=== PATIENT | male | born 1965 | race Caucasian/White ===

== ENCOUNTER → 2017-04-04 | Outpatient (REF) | payer OTHER ==
[~2017-04-04] MED LIST: /PANT40TA; IVIG; PRED10TA2; SYNT125T
[2017-04-04 12:52] LABS: INR 0.97
== END ==
LOC: M LAB REF 12:19
PROVIDERS: ATTEND Internal Medicine Pulmonary Disease
DX: R91.8 Other nonspecific abnormal finding of lung field (principal)

== ENCOUNTER → 2017-04-10 | Outpatient (CLI) | payer OTHER ==
[~2017-04-10] MED LIST changes: +ISOVUE-370 76% 100ML VIAL (Q9967) As Ordered ONE; +LIDOCAINE 1% MDV 20ML VIAL As Ordered ONE
== END ==
LOC: M RADPRO 07:43
PROVIDERS: ATTEND Internal Medicine Pulmonary Disease
DX: D14.31 Benign neoplasm of right bronchus and lung (principal); Z88.2 Allergy status to sulfonamides; Z88.0 Allergy status to penicillin; Z91.010 Allergy to peanuts; Z79.899 Other long term (current) drug therapy

== ENCOUNTER → 2017-12-20 | Outpatient (CLI) | payer OTHER | LOC: M SLEEP 19:46 | DX: G47.33 Obstructive sleep apnea (adult) (pediatric) (principal) | CPT/HCPCS: 95811 ==

== ENCOUNTER → 2018-01-16 | Outpatient (REF) | payer OTHER ==
[2018-01-16 14:18] LABS: IMMUNOGLOBULIN G 716 MG/DL (681-1648)
[2018-01-16 15:19] LABS: IMMUNOGLOBULIN A < 7.8 MG/DL (70-400)
[2018-01-16 15:20] LABS: IMMUNOGLOBULIN M 25.1 MG/DL (40-230)
[2018-01-21 08:06] LABS: IGASUB2 <9.7 mg/dL (73.2-301.2); IGASUB3 <0.3 mg/dL (13.4-97.9); IgA SERUM (part of Subclasses) < 5 mg/dL (90-386)
== END ==
LOC: M LAB REF 13:36
DX: D83.9 Common variable immunodeficiency, unspecified (principal); D80.2 Selective deficiency of immunoglobulin A [IgA]

== ENCOUNTER → 2018-08-15 | Outpatient (CLI) | payer OTHER ==
[~2018-08-15] MED LIST changes: -/PANT40TA; +EMLA CREAM 5GM (LIDOCAINE/PRILOCAINE) As Ordered; +ISOVUE-370 76% 100ML VIAL (Q9967) As Ordered; -ISOVUE-370 76% 100ML VIAL (Q9967) As Ordered ONE; -IVIG; -LIDOCAINE 1% MDV 20ML VIAL As Ordered ONE; -PRED10TA2; -SYNT125T
== END ==
LOC: M RAD 08:25
DX: D64.9 Anemia, unspecified (principal); R53.83 Other fatigue; R16.1 Splenomegaly, not elsewhere classified; R59.1 Generalized enlarged lymph nodes
CPT/HCPCS: Q9967

== ENCOUNTER → 2018-10-23 | Outpatient (REF) | payer OTHER ==
[~2018-10-23] MED LIST changes: +/PANT40TA; -EMLA CREAM 5GM (LIDOCAINE/PRILOCAINE) As Ordered; +FERR325T3 PO; -ISOVUE-370 76% 100ML VIAL (Q9967) As Ordered; +IVIG; +LEVO125T41 PO; +PANT40TA3 PO; +PRED10TA2; +PRED5PAK PO; +SYNT125T
[2018-10-23 11:24] LABS: ALBUMIN 3.3 GM/DL (3.2-5.2); ALT/SGPT 22 U/L (12-78); BILIRUBIN,TOTAL 0.7 MG/DL (0.2-1.0); BLOOD UREA NITROGEN 15 MG/DL (7-18); CALCIUM LEVEL 7.8 MG/DL (8.5-10.1); CARBON DIOXIDE LEVEL 27 MEQ/L (21-32); CHLORIDE LEVEL 105 MEQ/L (98-107); CREATININE FOR GFR 0.66 MG/DL (0.70-1.30); FREE T3 2.4 PG/ML (2.2-4.0); FREE T4 1.27 NG/DL (0.76-1.46); GLOMERULAR FILTRATION RATE > 60.0 (>56); GLUCOSE, FASTING 79 MG/DL (70-100); POTASSIUM SERUM 3.8 MEQ/L (3.5-5.1); SODIUM LEVEL 142 MEQ/L (136-145); TOTAL PROTEIN 6.2 GM/DL (6.4-8.2)
== END ==
LOC: M LABDRAW1 09:10
PROVIDERS: ATTEND Family Medicine
DX: E03.9 Hypothyroidism, unspecified (principal); R60.9 Edema, unspecified

== ENCOUNTER → 2018-12-04 | Outpatient (REF) | payer OTHER ==
[2018-12-04 11:21] LABS: ALBUMIN 3.5 GM/DL (3.2-5.2); ALT/SGPT 20 U/L (12-78); BILIRUBIN,TOTAL 0.6 MG/DL (0.2-1.0); BLOOD UREA NITROGEN 10 MG/DL (7-18); CALCIUM LEVEL 7.6 MG/DL (8.5-10.1); CARBON DIOXIDE LEVEL 25 MEQ/L (21-32); CHLORIDE LEVEL 107 MEQ/L (98-107); CREATININE FOR GFR 0.79 MG/DL (0.70-1.30); GLOMERULAR FILTRATION RATE > 60.0 (>56); GLUCOSE, FASTING 81 MG/DL (70-100); POTASSIUM SERUM 3.7 MEQ/L (3.5-5.1); SODIUM LEVEL 143 MEQ/L (136-145); TOTAL PROTEIN 6.2 GM/DL (6.4-8.2)
== END ==
LOC: M LAB REF 10:56
PROVIDERS: ATTEND Family Medicine
DX: Z79.899 Other long term (current) drug therapy (principal)

== ENCOUNTER → 2019-01-21 | Outpatient (REF) | payer OTHER ==
[~2019-01-21] MED LIST changes: -/PANT40TA; +PROT1TAB2
== END ==
LOC: M LAB REF 13:06
PROVIDERS: ATTEND Otolaryngology
DX: R89.6 Abnormal cytological findings in specimens from other organs, systems and tissues (principal)

== ENCOUNTER → 2019-01-29 | Outpatient (CLI) | payer OTHER ==
--- NOTE | 2019-01-29 09:40 | REP ---
Soft tissue CT neck without contrast: History: Localized enlarged lymph nodes. Comparison study: August 15, 2018. CT findings: There is moderate mucosal thickening persisting in the left maxillary sinus. The right maxillary sinus is improved. No bony destructive lesion is appreciated. There are multiple severely eroded carious teeth in the mandible and maxilla bilaterally. The lung apices are unremarkable. There is a 5 mm thick band of tissue again noted connecting the posterior aspect of the soft palate with the retropharyngeal soft tissues. This is apparently a developmental anomaly. It is unchanged. No other airway lesion is appreciated. Parotid and submandibular glands are normal and symmetric. The thyroid gland is not visible and there are surgical clips in the suprasternal notch consistent with thyroidectomy. There is evidence of aberrant right subclavian artery at the bottom edge of the imaging field of view. This is unchanged. A right internal carotid artery is tortuous and courses nearly to the midline behind the hypopharynx. There is mild shoddy bilateral cervical lymphadenopathy. On today's CT study the largest lymph node is in the left posterior cervical chain measuring 15 mm in short axis dimension. This note is a little larger but other adjacent lymph nodes are smaller when compared to the prior study. There is an anterior cervical lymph node on the left measuring 10 mm in short axis dimension which appears unchanged. A right anterior jugular lymph node previously measured at 16 mm has become more fat replaced and smaller. No mass or cyst is seen. Impression: 1. Shoddy cervical lymphadenopathy overall unchanged one or two lymph nodes are larger and several are smaller. 2. Poor dentition multiple advanced carious teeth. 3. 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 4. Aberrant right subclavian artery. Tortuous right internal carotid artery in a retropharyngeal position. Electronically Signed by Sanjiv Galvin MD 01/29/2019 06:32 P
== END ==
LOC: M RAD 07:54
PROVIDERS: ATTEND Otolaryngology
DX: R59.0 Localized enlarged lymph nodes (principal); K02.9 Dental caries, unspecified; Q38.5 Congenital malformations of palate, not elsewhere classified; R93.89 Abnormal findings on diagnostic imaging of other specified body structures

== ENCOUNTER 2019-02-26 06:55 | Outpatient (CLI) | payer OTHER ==
[~2019-02-26] VITALS: Ht 188 cm; Wt 125.0 kg
[2019-02-26] VITALS (7 sets, daily range): BP systolic 133–151; BP diastolic 62–97
[2019-02-26] MEDS ORDERED: IMMUNE GLOBULIN 10% 40 GM in APPROPRIATE DILUENT 1 EA IV ONE (07:30)
[2019-02-26] MEDS ORDERED: ACETAMINOPHEN TAB 650MG DOSE (2X325MG) PO ONE (07:45)
[2019-02-26] MEDS ORDERED: diphenhydrAMINE 50 MG CAP PO ONE (07:45)
[2019-02-26] MEDS ORDERED: SODIUM CHLORIDE 0.9% INJ 10 ML SYR IV SCH (09:00)
== END 2019-02-26 11:30 | disposition home or self-care (01) ==
LOC: M INFU 06:55
PROVIDERS: ATTEND Internal Medicine Hematology & Oncology
DX: D83.9 Common variable immunodeficiency, unspecified (principal); Z88.0 Allergy status to penicillin; Z88.2 Allergy status to sulfonamides
CPT/HCPCS: 96365; 96366; J1459

== ENCOUNTER 2019-03-20 06:56 | Outpatient (CLI) | payer OTHER ==
[2019-03-20 07:00] VITALS: BP 143/74
[2019-03-20] MEDS ORDERED: diphenhydrAMINE 50 MG CAP PO ONE (08:00)
[2019-03-20] MEDS ORDERED: ACETAMINOPHEN TAB 650MG DOSE (2X325MG) PO ONE (08:00)
[2019-03-20 08:30] VITALS: BP 141/67
[2019-03-20] MEDS ORDERED: IMMUNE GLOBULIN 10% 40 GM in APPROPRIATE DILUENT 1 EA IV ONE (08:30)
[2019-03-20 09:00] VITALS: BP 135/66
[2019-03-20] MEDS ORDERED: SODIUM CHLORIDE 0.9% INJ 10 ML SYR IV SCH (09:00)
[2019-03-20 09:30] VITALS: BP 142/65
[2019-03-20 10:00] VITALS: BP 138/63
[2019-03-20 11:04] VITALS: BP 141/69
== END 2019-03-20 11:05 | disposition home or self-care (01) ==
LOC: M INFU 06:56
PROVIDERS: ATTEND Internal Medicine Hematology & Oncology
DX: D83.9 Common variable immunodeficiency, unspecified (principal); Z88.0 Allergy status to penicillin; Z88.2 Allergy status to sulfonamides
CPT/HCPCS: 96365; 96366; J1459

== ENCOUNTER → 2019-03-26 | Outpatient (CLI) | payer OTHER ==
[~2019-03-26] MED LIST changes: +LIDOCAINE 1% MDV 20ML VIAL As Ordered ONE
--- NOTE | 2019-03-27 09:04 | REP ---
Ultrasound-guided cervical lymph node FNA This procedure was performed by KASEY Butterfield, under the personal supervision of Dr. Lau. The patient has a history of enlarged cervical lymph nodes on a CT scan dated 01/29/2019 and 08/15/2018. The risks and the benefits of the procedure were explained to the patient and informed consent was obtained both verbally and written. Directly prior to the start of the procedure, a formal time out was completed in the procedure room. The cervical lymph node that the patient palpated was localized using ultrasound guidance. The skin was prepped and draped in a sterile fashion. 1% lidocaine was used as a local anesthetic. Using ultrasound guidance 8 fine-needle aspirations were obtained using 25 gauge needles of the lymph node. The patient tolerated the procedure well and there were no immediate complications. After the appropriate amount of monitored convalescence the patient was discharged from the department. Reviewed by KASEY Butterfield 03/26/2019 03:13 P Electronically Signed by Tony Lau MD 03/27/2019 08:55 A
== END ==
LOC: M RADPRO 11:16
PROVIDERS: ATTEND Otolaryngology
DX: R59.0 Localized enlarged lymph nodes (principal)

== ENCOUNTER 2019-04-10 06:48 | Outpatient (CLI) | payer OTHER ==
[~2019-04-10] VITALS: Ht 182.9 cm; Wt 125.1 kg
[~2019-04-10 06:48] MED LIST changes: -LIDOCAINE 1% MDV 20ML VIAL As Ordered ONE
[2019-04-10 07:00] VITALS: BP 144/75
[2019-04-10] MEDS ORDERED: IMMUNE GLOBULIN 10% 40 GM in APPROPRIATE DILUENT 1 EA IV ONE (07:15)
[2019-04-10] MEDS ORDERED: ACETAMINOPHEN TAB 650MG DOSE (2X325MG) PO ONE (07:15)
[2019-04-10] MEDS ORDERED: diphenhydrAMINE 50 MG CAP PO ONE (07:15)
[2019-04-10 07:45] VITALS: BP 166/76
[2019-04-10 08:15] VITALS: BP_SYST 148; BP_SYST 166; BP_DIAS 73; BP_DIAS 76
[2019-04-10 08:45] VITALS: BP 168/76
[2019-04-10] MEDS ORDERED: SODIUM CHLORIDE 0.9% INJ 10 ML SYR IV SCH (09:00)
[2019-04-10 09:40] VITALS: BP 142/76
== END 2019-04-10 09:50 | disposition home or self-care (01) ==
LOC: M INFU 06:48
PROVIDERS: ATTEND Internal Medicine Hematology & Oncology
DX: D83.9 Common variable immunodeficiency, unspecified (principal); Z88.0 Allergy status to penicillin; Z88.2 Allergy status to sulfonamides
CPT/HCPCS: 96365; 96366; J1459

== ENCOUNTER 2019-05-01 07:35 | Outpatient (CLI) | payer OTHER ==
[~2019-05-01] VITALS: Ht 182.9 cm; Wt 125.1 kg
[2019-05-01 07:40] VITALS: BP 155/72
[2019-05-01] MEDS ORDERED: IMMUNE GLOBULIN 10% 20GM 200ML 40 GM in IV 1 EA IV ONE (08:00)
[2019-05-01 08:30] VITALS: BP 147/89
[2019-05-01 09:00] VITALS: BP 145/79
[2019-05-01] MEDS ORDERED: SODIUM CHLORIDE 0.9% INJ 10 ML SYR IV SCH (09:00)
[2019-05-01 10:00] VITALS: BP 149/80
[2019-05-01 10:30] VITALS: BP 148/82
== END 2019-05-01 10:30 | disposition home or self-care (01) ==
LOC: M INFU 07:35
PROVIDERS: ATTEND Internal Medicine Hematology & Oncology
DX: D83.9 Common variable immunodeficiency, unspecified (principal); Z88.2 Allergy status to sulfonamides; Z88.0 Allergy status to penicillin
CPT/HCPCS: 96365; J1569

== ENCOUNTER 2019-05-22 07:21 | Outpatient (CLI) | payer OTHER ==
[2019-05-22] VITALS (7 sets, daily range): BP systolic 139–151; BP diastolic 65–70
[~2019-05-22] VITALS: Ht 188 cm; Wt 125.1 kg
[2019-05-22] MEDS ORDERED: IMMUNE GLOBULIN 10% 40 GM in APPROPRIATE DILUENT 1 EA IV ONE (07:30)
[2019-05-22] MEDS ORDERED: SODIUM CHLORIDE 0.9% INJ 10 ML SYR IV SCH (09:00)
== END 2019-05-22 11:30 | disposition home or self-care (01) ==
LOC: M INFU 07:21
PROVIDERS: ATTEND Internal Medicine Hematology & Oncology
DX: D83.9 Common variable immunodeficiency, unspecified (principal); Z88.0 Allergy status to penicillin; Z88.2 Allergy status to sulfonamides
CPT/HCPCS: 96365; 96366; J1459

== ENCOUNTER 2019-06-12 07:32 | Outpatient (CLI) | payer OTHER ==
[~2019-06-12] VITALS: Ht 182.9 cm; Wt 125.0 kg
[2019-06-12 07:40] VITALS: BP 151/74
[2019-06-12] MEDS ORDERED: IMMUNE GLOBULIN 10% 40 GM in APPROPRIATE DILUENT 1 EA IV ONE (08:00)
[2019-06-12 08:30] VITALS: BP 160/75
[2019-06-12 09:00] VITALS: BP 143/70
[2019-06-12 09:30] VITALS: BP 166/67
[2019-06-12 10:00] VITALS: BP 145/76
[2019-06-12 10:25] VITALS: BP 168/76
== END 2019-06-12 10:30 | disposition home or self-care (01) ==
LOC: M INFU 07:32
PROVIDERS: ATTEND Internal Medicine Hematology & Oncology
DX: D83.9 Common variable immunodeficiency, unspecified (principal); Z88.0 Allergy status to penicillin; Z88.2 Allergy status to sulfonamides
CPT/HCPCS: 96365; 96366; J1459

== ENCOUNTER 2019-07-03 07:41 | Outpatient (CLI) | payer OTHER ==
[~2019-07-03] VITALS: Ht 182.9 cm; Wt 125.0 kg
[~2019-07-03 07:41] MED LIST changes: +IMMUNE GLOBULIN 10% 40 GM in APPROPRIATE DILUENT 1 EA IV ONE
[2019-07-03 07:45] VITALS: BP 164/72
[2019-07-03 08:32] VITALS: BP 147/79
[2019-07-03 09:00] VITALS: BP 151/72
[2019-07-03 09:30] VITALS: BP 147/77
[2019-07-03 10:30] VITALS: BP 167/73
[2019-07-03 10:55] VITALS: BP 159/82
[2019-07-03] MEDS ORDERED: SODIUM CHLORIDE 0.9% INJ 10 ML SYR IV PRN (12:00)
[2019-07-04] MEDS ORDERED: SODIUM CHLORIDE 0.9% INJ 10 ML SYR IV SCH (09:00)
== END 2019-07-03 11:15 | disposition home or self-care (01) ==
LOC: M INFU 07:41
PROVIDERS: ATTEND Internal Medicine Hematology & Oncology
DX: D83.9 Common variable immunodeficiency, unspecified (principal); Z88.0 Allergy status to penicillin; Z88.2 Allergy status to sulfonamides
CPT/HCPCS: 96365; 96366; J1459

== ENCOUNTER → 2019-07-23 | Outpatient (REF) | payer OTHER ==
[~2019-07-23] MED LIST changes: -IMMUNE GLOBULIN 10% 40 GM in APPROPRIATE DILUENT 1 EA IV ONE
[2019-07-23 13:20] LABS: IMMUNOGLOBULIN A < 7.8 MG/DL (70-400); IMMUNOGLOBULIN G 765 MG/DL (681-1648); IMMUNOGLOBULIN M 22.1 MG/DL (40-230)
== END ==
LOC: M LAB REF 11:00
PROVIDERS: ATTEND Ophthalmology
DX: D83.9 Common variable immunodeficiency, unspecified (principal)

== ENCOUNTER 2019-07-24 07:42 | Outpatient (CLI) | payer OTHER ==
[~2019-07-24] VITALS: Ht 188 cm; Wt 125.1 kg
[2019-07-24] VITALS (7 sets, daily range): BP systolic 155–172; BP diastolic 61–86
[2019-07-24] MEDS ORDERED: IMMUNE GLOBULIN 10% 40 GM in IV 1 EA IV ONE (09:00)
[2019-07-24] MEDS ORDERED: SODIUM CHLORIDE 0.9% INJ 10 ML SYR IV PRN (12:00)
[2019-07-25] MEDS ORDERED: SODIUM CHLORIDE 0.9% INJ 10 ML SYR IV SCH (09:00)
== END 2019-07-24 11:25 | disposition home or self-care (01) ==
LOC: M INFU 07:42
PROVIDERS: ATTEND Internal Medicine Hematology & Oncology
DX: D83.9 Common variable immunodeficiency, unspecified (principal); Z88.0 Allergy status to penicillin; Z88.2 Allergy status to sulfonamides
CPT/HCPCS: 96365; 96366; J1459

== ENCOUNTER 2019-08-14 07:39 | Outpatient (CLI) | payer OTHER ==
[~2019-08-14] VITALS: Ht 182.9 cm; Wt 125.1 kg
[2019-08-14 07:45] VITALS: BP 146/70
[2019-08-14] MEDS ORDERED: IMMUNE GLOBULIN 10% 40 GM in IV 1 EA IV ONE (08:00)
[2019-08-14] MEDS ORDERED: SODIUM CHLORIDE 0.9% INJ 10 ML SYR IV PRN (08:00)
[2019-08-14] MEDS ORDERED: SODIUM CHLORIDE 0.9% INJ 10 ML SYR IV ONE (08:00)
[2019-08-14 08:35] VITALS: BP 132/71
[2019-08-14 09:05] VITALS: BP 134/61
[2019-08-14 09:35] VITALS: BP 127/64
[2019-08-14 10:05] VITALS: BP 138/62
[2019-08-14 11:05] VITALS: BP 148/70
== END 2019-08-14 11:05 | disposition home or self-care (01) ==
LOC: M INFU 07:39
PROVIDERS: ATTEND Internal Medicine Hematology & Oncology
DX: D83.9 Common variable immunodeficiency, unspecified (principal); Z88.0 Allergy status to penicillin; Z88.2 Allergy status to sulfonamides
CPT/HCPCS: 96365; 96366; J1459

== ENCOUNTER 2019-09-04 07:21 | Outpatient (CLI) | payer OTHER ==
[~2019-09-04] VITALS: Ht 182.9 cm; Wt 126.0 kg
[2019-09-04 07:39] VITALS: BP 165/75
[2019-09-04] MEDS: IMMUNE GLOBULIN 10% 40 GM in IV 1 EA IV ONE ×4 (07:47→09:37)
[2019-09-04] MEDS ORDERED: SODIUM CHLORIDE 0.9% INJ 10 ML SYR IV PRN (08:00)
[2019-09-04] MEDS ORDERED: IMMUNE GLOBULIN 10% 20 GM in IV 1 EA IV ONE (09:00)
[2019-09-04] MEDS ORDERED: IMMUNE GLOBULIN 10% 10 GM in IV 1 EA IV ONE (09:00)
[2019-09-04] MEDS ORDERED: SODIUM CHLORIDE 0.9% INJ 10 ML SYR IV SCH (09:00)
[2019-09-04] MEDS ORDERED: IMMUNE GLOBULIN 10% 5 GM in IV 1 EA IV ONE (09:00)
[2019-09-04 09:50] VITALS: BP 148/88
[2019-09-04 10:20] VITALS: BP 152/72
[2019-09-04 10:50] VITALS: BP 152/82
[2019-09-04 12:00] VITALS: BP 142/80
== END 2019-09-04 12:00 | disposition home or self-care (01) ==
LOC: M INFU 07:21
PROVIDERS: ATTEND Internal Medicine Hematology & Oncology
DX: D80.1 Nonfamilial hypogammaglobulinemia (principal); Z88.0 Allergy status to penicillin; Z88.2 Allergy status to sulfonamides; Z91.018 Allergy to other foods
CPT/HCPCS: 96365; 96366; J1459

== ENCOUNTER 2019-10-02 07:17 | Outpatient (CLI) | payer OTHER ==
[~2019-10-02] VITALS: Ht 188 cm; Wt 126.0 kg
[2019-10-02 07:34] VITALS: BP 133/87
[2019-10-02] MEDS ORDERED: IMMUNE GLOBULIN 10% 40GM 400ML BOTTLE (PRIVIGEN) (J1459 PER 500MG) As Ordered ONE (07:47)
[2019-10-02] MEDS ORDERED: IMMUNE GLOBULIN 10% 40 GM in IV 1 EA IV ONE (08:00)
[2019-10-02 08:31] VITALS: BP 153/68
[2019-10-02 09:00] VITALS: BP 141/70
[2019-10-02 09:30] VITALS: BP 150/70
[2019-10-02 10:34] VITALS: BP 173/76
== END 2019-10-02 10:35 | disposition home or self-care (01) ==
LOC: M INFU 07:17
PROVIDERS: ATTEND Internal Medicine Hematology
DX: D80.1 Nonfamilial hypogammaglobulinemia (principal); Z88.0 Allergy status to penicillin; Z88.2 Allergy status to sulfonamides; Z91.018 Allergy to other foods
CPT/HCPCS: 96365; 96366; J1459

== ENCOUNTER 2019-10-23 06:50 | Outpatient (CLI) | payer OTHER ==
[~2019-10-23] VITALS: Ht 188 cm; Wt 126.0 kg
[2019-10-23 06:55] VITALS: BP 172/77
[2019-10-23] MEDS ORDERED: IMMUNE GLOBULIN 10% 40 GM in IV 1 EA IV ONE (07:30)
[2019-10-23 08:00] VITALS: BP 150/78
[2019-10-23 08:30] VITALS: BP 145/77
[2019-10-23 09:00] VITALS: BP 156/74
[2019-10-23 10:05] VITALS: BP 167/79
== END 2019-10-23 10:05 | disposition home or self-care (01) ==
LOC: M INFU 06:50
PROVIDERS: ATTEND Internal Medicine Hematology
DX: D80.1 Nonfamilial hypogammaglobulinemia (principal); D83.9 Common variable immunodeficiency, unspecified; Z88.0 Allergy status to penicillin; Z88.2 Allergy status to sulfonamides; Z91.010 Allergy to peanuts; Z91.018 Allergy to other foods
CPT/HCPCS: 96365; 96366; J1459

== ENCOUNTER 2019-11-13 06:44 | Outpatient (CLI) | payer OTHER ==
[~2019-11-13] VITALS: Ht 188 cm; Wt 126.0 kg
[2019-11-13 07:08] VITALS: BP 190/86
[2019-11-13] MEDS ORDERED: SODIUM CHLORIDE 0.9% INJ 10 ML SYR IV PRN (07:15)
[2019-11-13] MEDS ORDERED: IMMUNE GLOBULIN 10% 40 GM in IV 1 EA IV ONE (07:30)
[2019-11-13 07:45] VITALS: BP 151/74
[2019-11-13 08:15] VITALS: BP 147/73
[2019-11-13 08:45] VITALS: BP 147/70
[2019-11-13] MEDS ORDERED: SODIUM CHLORIDE 0.9% INJ 10 ML SYR IV SCH (09:00)
[2019-11-13 09:45] VITALS: BP 147/71
== END 2019-11-13 09:55 | disposition home or self-care (01) ==
LOC: M INFU 06:44
PROVIDERS: ATTEND Internal Medicine Hematology
DX: D80.1 Nonfamilial hypogammaglobulinemia (principal); Z88.0 Allergy status to penicillin; Z88.2 Allergy status to sulfonamides; Z91.018 Allergy to other foods
CPT/HCPCS: 96365; 96366; J1459; J1642

== ENCOUNTER 2019-12-04 07:02 | Outpatient (CLI) | payer OTHER ==
[~2019-12-04] VITALS: Ht 188 cm; Wt 126.0 kg
[~2019-12-04 07:02] MED LIST changes: +IMMUNE GLOBULIN 10% 40 GM in IV 1 EA IV ONE; +SODIUM CHLORIDE 0.9% INJ 10 ML SYR IV PRN
[2019-12-04 07:31] VITALS: BP 166/68
[2019-12-04] MEDS ORDERED: [UNRECOGNIZED DRUG - CODE] SC (07:39)
[2019-12-04 07:43] VITALS: BP 155/81
[2019-12-04 08:15] VITALS: BP 160/79
[2019-12-04 08:45] VITALS: BP 157/74
[2019-12-04] MEDS ORDERED: SODIUM CHLORIDE 0.9% INJ 10 ML SYR IV SCH (09:00)
[2019-12-04 09:15] VITALS: BP 140/77
[2019-12-04 09:50] VITALS: BP 148/69
== END 2019-12-04 09:50 | disposition home or self-care (01) ==
LOC: M INFU 07:02
PROVIDERS: ATTEND Internal Medicine Hematology
DX: D80.1 Nonfamilial hypogammaglobulinemia (principal); Z88.0 Allergy status to penicillin; Z88.2 Allergy status to sulfonamides; Z91.018 Allergy to other foods
CPT/HCPCS: 96365; 96366; J1459; J1642

== ENCOUNTER → 2019-12-24 | Outpatient (REF) | payer OTHER ==
[~2019-12-24] MED LIST changes: -IMMUNE GLOBULIN 10% 40 GM in IV 1 EA IV ONE; -SODIUM CHLORIDE 0.9% INJ 10 ML SYR IV PRN; +[UNRECOGNIZED DRUG - CODE] SC
[2019-12-24 13:36] LABS: IMMUNOGLOBULIN A < 7.8 MG/DL (70-400); IMMUNOGLOBULIN G 722 MG/DL (681-1648); IMMUNOGLOBULIN M 25.7 MG/DL (40-230)
== END ==
LOC: M LAB REF 10:49
PROVIDERS: ATTEND Allergy & Immunology
DX: D83.9 Common variable immunodeficiency, unspecified (principal)

== ENCOUNTER 2019-12-25 06:53 | Outpatient (CLI) | payer OTHER ==
[~2019-12-25] VITALS: Ht 188 cm; Wt 126.0 kg
[2019-12-25 06:55] VITALS: BP 159/77
[2019-12-25] MEDS ORDERED: IMMUNE GLOBULIN 10% 40GM 400ML BOTTLE (PRIVIGEN) (J1459 PER 500MG) As Ordered ONE (07:19)
[2019-12-25] MEDS ORDERED: IMMUNE GLOBULIN 10% 40 GM in IV 1 EA IV ONE (07:30)
[2019-12-25] MEDS ORDERED: SODIUM CHLORIDE 0.9% INJ 10 ML SYR IV PRN (07:45)
[2019-12-25 08:00] VITALS: BP 154/75
[2019-12-25 08:30] VITALS: BP 148/69
[2019-12-25 09:00] VITALS: BP 129/60
[2019-12-25] MEDS ORDERED: SODIUM CHLORIDE 0.9% INJ 10 ML SYR IV SCH (09:00)
[2019-12-25 10:11] VITALS: BP 136/72
== END 2019-12-25 10:10 | disposition home or self-care (01) ==
LOC: M INFU 06:53
PROVIDERS: ATTEND Internal Medicine Hematology
DX: D80.1 Nonfamilial hypogammaglobulinemia (principal); Z88.0 Allergy status to penicillin; Z88.2 Allergy status to sulfonamides; Z91.018 Allergy to other foods
CPT/HCPCS: 96365; 96366; J1459; J1642

== ENCOUNTER → 2020-01-07 | Outpatient (REF) | payer OTHER ==
[2020-01-07 12:40] LABS: BLOOD UREA NITROGEN 14 MG/DL (7-18); CALCIUM LEVEL 7.8 MG/DL (8.5-10.1); CARBON DIOXIDE LEVEL 29 MEQ/L (21-32); CHLORIDE LEVEL 108 MEQ/L (98-107); CREATININE FOR GFR 0.97 MG/DL (0.70-1.30); FREE T3 2.2 PG/ML (2.2-4.0); FREE T4 1.33 NG/DL (0.76-1.46); GLOMERULAR FILTRATION RATE > 60.0 (>56); GLUCOSE, FASTING 91 MG/DL (70-100); POTASSIUM SERUM 3.7 MEQ/L (3.5-5.1); SODIUM LEVEL 141 MEQ/L (136-145)
== END ==
LOC: M LAB REF 11:17
PROVIDERS: ATTEND Family Medicine
DX: E03.9 Hypothyroidism, unspecified (principal); R60.9 Edema, unspecified

== ENCOUNTER 2020-01-15 07:07 | Outpatient (CLI) | payer OTHER ==
[~2020-01-15] VITALS: Ht 182.9 cm; Wt 126.0 kg
[~2020-01-15 07:07] MED LIST changes: +IMMUNE GLOBULIN 10% 40 GM in IV 1 EA IV ONE
[2020-01-15] MEDS ORDERED: SODIUM CHLORIDE 0.9% INJ 10 ML SYR IV PRN (07:15)
[2020-01-15 07:23] VITALS: BP 170/77
[2020-01-15 07:57] VITALS: BP 140/76
[2020-01-15 08:31] VITALS: BP 138/69
[2020-01-15 09:00] VITALS: BP 151/81
[2020-01-15] MEDS ORDERED: SODIUM CHLORIDE 0.9% INJ 10 ML SYR IV SCH ×2 (09:00)
[2020-01-15 10:00] VITALS: BP 138/78
== END 2020-01-15 10:00 | disposition home or self-care (01) ==
LOC: M INFU 07:07
PROVIDERS: ATTEND Internal Medicine Hematology
DX: D80.1 Nonfamilial hypogammaglobulinemia (principal); Z88.0 Allergy status to penicillin; Z88.2 Allergy status to sulfonamides; Z91.018 Allergy to other foods
CPT/HCPCS: 96365; 96366; J1459; J1642

== ENCOUNTER → 2020-01-28 | Outpatient (CLI) | payer OTHER ==
[~2020-01-28] MED LIST changes: -IMMUNE GLOBULIN 10% 40 GM in IV 1 EA IV ONE
== END ==
LOC: M LABSMTC 11:39
PROVIDERS: ATTEND Family Medicine
DX: Z11.59 Encounter for screening for other viral diseases (principal); Z20.828 Contact with and (suspected) exposure to other viral communicable diseases

== ENCOUNTER 2020-02-05 06:58 | Outpatient (CLI) | payer OTHER ==
[~2020-02-05] VITALS: Ht 182.9 cm; Wt 126.0 kg
[2020-02-05 07:00] VITALS: BP 188/81
[2020-02-05] MEDS ORDERED: SODIUM CHLORIDE 0.9% INJ 10 ML SYR IV PRN (07:30)
[2020-02-05] MEDS ORDERED: diphenhydrAMINE 50MG/ML VIAL (J1200) IV ONE (07:30)
[2020-02-05] MEDS ORDERED: dexameTHASONE 20MG/5ML VIAL (J1100 PER 1MG) IV ONE (07:30)
[2020-02-05] MEDS ORDERED: IMMUNE GLOBULIN 10% 40 GM in IV 1 EA IV ONE (07:30)
[2020-02-05 08:00] VITALS: BP 143/84
[2020-02-05 08:30] VITALS: BP 180/90
[2020-02-05 09:00] VITALS: BP 146/100
[2020-02-05] MEDS ORDERED: SODIUM CHLORIDE 0.9% INJ 10 ML SYR IV SCH (09:00)
[2020-02-05 09:30] VITALS: BP 179/82
== END 2020-02-05 09:30 | disposition home or self-care (01) ==
LOC: M INFU 06:58
PROVIDERS: ATTEND Internal Medicine Hematology
DX: D80.1 Nonfamilial hypogammaglobulinemia (principal); Z88.0 Allergy status to penicillin; Z88.2 Allergy status to sulfonamides; Z91.018 Allergy to other foods
CPT/HCPCS: 96365; 96366; J1459; J1642

== ENCOUNTER 2020-02-26 06:58 | Outpatient (CLI) | payer OTHER ==
[~2020-02-26] VITALS: Ht 182.9 cm; Wt 126.0 kg
[2020-02-26 07:00] VITALS: BP 160/88
[2020-02-26] MEDS ORDERED: IMMUNE GLOBULIN 10% 40 GM in IV 1 EA IV ONE (07:00)
[2020-02-26] MEDS ORDERED: SODIUM CHLORIDE 0.9% INJ 10 ML SYR IV PRN (07:00)
[2020-02-26] MEDS: SODIUM CHLORIDE 0.9% INJ 10 ML SYR IV SCH ×2 (07:15→09:50)
[2020-02-26 07:50] VITALS: BP 169/74
[2020-02-26 08:20] VITALS: BP 178/84
[2020-02-26 08:50] VITALS: BP 158/78
[2020-02-26 10:00] VITALS: BP 150/88
== END 2020-02-26 10:00 | disposition home or self-care (01) ==
LOC: M INFU 06:58
PROVIDERS: ATTEND Internal Medicine Hematology
DX: D80.1 Nonfamilial hypogammaglobulinemia (principal)
CPT/HCPCS: 96365; 96366; J1459; J1642

== ENCOUNTER 2020-03-21 06:45 | Outpatient (CLI) | payer OTHER ==
[~2020-03-21] VITALS: Ht 177.8 cm; Wt 126.0 kg
[2020-03-21 07:00] VITALS: BP 180/83
[2020-03-21] MEDS ORDERED: IMMUNE GLOBULIN 10% 40GM 400ML BOTTLE (PRIVIGEN) (J1459 PER 500MG) As Ordered ONE (07:05)
[2020-03-21] MEDS ORDERED: SODIUM CHLORIDE 0.9% INJ 10 ML SYR IV PRN (07:15)
[2020-03-21 07:39] VITALS: BP 162/84
[2020-03-21 08:12] VITALS: BP 172/84
[2020-03-21 08:45] VITALS: BP 154/80
[2020-03-21] MEDS ORDERED: SODIUM CHLORIDE 0.9% INJ 10 ML SYR IV SCH (09:00)
[2020-03-21 09:27] VITALS: BP 160/80
[2020-03-21 10:00] VITALS: BP 166/81
[2020-03-21] MEDS ORDERED: IMMUNE GLOBULIN 10% 40 GM in IV 1 EA IV ONE (13:15)
== END 2020-03-21 10:00 | disposition home or self-care (01) ==
LOC: M INFU 06:45
PROVIDERS: ATTEND Internal Medicine Hematology
DX: G61.81 Chronic inflammatory demyelinating polyneuritis (principal); Z88.0 Allergy status to penicillin; Z88.2 Allergy status to sulfonamides; Z91.018 Allergy to other foods
CPT/HCPCS: 96365; 96366; J1459; J1642

== ENCOUNTER 2020-04-11 07:00 | Outpatient (CLI) | payer OTHER ==
[~2020-04-11] VITALS: Ht 182.9 cm; Wt 129.6 kg
[2020-04-11 07:02] VITALS: BP 168/88
[2020-04-11] MEDS ORDERED: SODIUM CHLORIDE 0.9% INJ 10 ML SYR IV PRN (07:15)
[2020-04-11] MEDS ORDERED: IMMUNE GLOBULIN 10% 40 GM in IV 1 EA IV ONE (07:15)
[2020-04-11] MEDS ORDERED: IMMUNE GLOBULIN 10% 10 GM in IV 1 EA IV ONE (07:15)
[2020-04-11 07:45] VITALS: BP 144/64
[2020-04-11 08:15] VITALS: BP 152/71
[2020-04-11 08:45] VITALS: BP 160/70
[2020-04-11] MEDS ORDERED: SODIUM CHLORIDE 0.9% INJ 10 ML SYR IV SCH (09:00)
[2020-04-11 10:10] VITALS: BP 144/68
== END 2020-04-11 10:10 | disposition home or self-care (01) ==
LOC: M INFU 07:00
PROVIDERS: ATTEND Internal Medicine Hematology
DX: D83.9 Common variable immunodeficiency, unspecified (principal); Z88.0 Allergy status to penicillin; Z88.2 Allergy status to sulfonamides; Z91.018 Allergy to other foods
CPT/HCPCS: 96365; 96366; J1459; J1642

== ENCOUNTER → 2020-04-28 | Outpatient (REF) | payer OTHER ==
[~2020-04-28] MED LIST changes: +LASI20TA3 PO; +PANT40TA29 PO; -PANT40TA3 PO
[2020-04-28 13:49] LABS: ALBUMIN 3.6 GM/DL (3.2-5.2); ALT/SGPT 24 U/L (12-78); BILIRUBIN,TOTAL 0.6 MG/DL (0.2-1.0); BLOOD UREA NITROGEN 11 MG/DL (7-18); CARBON DIOXIDE LEVEL 28 MEQ/L (21-32); CHLORIDE LEVEL 108 MEQ/L (98-107); CREATININE FOR GFR 0.83 MG/DL (0.70-1.30); FREE T4 1.28 NG/DL (0.76-1.46); GLOMERULAR FILTRATION RATE > 60.0 (>56); GLUCOSE, FASTING 81 MG/DL (70-100); POTASSIUM SERUM 3.5 MEQ/L (3.5-5.1); SODIUM LEVEL 143 MEQ/L (136-145); TOTAL PROTEIN 6.4 GM/DL (6.4-8.2)
[2020-04-28 16:17] LABS: HEMOGLOBIN A1c 4.6 %
== END ==
LOC: M LAB REF 12:09
PROVIDERS: ATTEND Family Medicine
DX: Z51.81 Encounter for therapeutic drug level monitoring (principal); Z79.899 Other long term (current) drug therapy; E03.9 Hypothyroidism, unspecified; R60.9 Edema, unspecified

== ENCOUNTER 2020-05-02 06:52 | Outpatient (CLI) | payer OTHER ==
[~2020-05-02] VITALS: Ht 182.9 cm; Wt 129.6 kg
[~2020-05-02 06:52] MED LIST changes: -LASI20TA3 PO
[2020-05-02] MEDS ORDERED: SODIUM CHLORIDE 0.9% INJ 10 ML SYR IV PRN (07:15)
[2020-05-02] MEDS ORDERED: IMMUNE GLOBULIN 10% 40 GM in IV 1 EA IV ONE (07:15)
[2020-05-02] MEDS ORDERED: IMMUNE GLOBULIN 10% 10 GM in IV 1 EA IV ONE (07:15)
[2020-05-02 07:37] VITALS: BP 170/82
[2020-05-02 08:01] VITALS: BP 159/75
[2020-05-02 08:34] VITALS: BP 147/77
[2020-05-02 09:00] VITALS: BP 142/71
[2020-05-02] MEDS ORDERED: SODIUM CHLORIDE 0.9% INJ 10 ML SYR IV SCH (09:00)
[2020-05-02 10:22] VITALS: BP 147/74
[2020-08-25] MEDS ORDERED: FERR325T3 PO (10:08)
== END 2020-05-02 10:20 | disposition home or self-care (01) ==
LOC: M INFU 06:52
PROVIDERS: ATTEND Internal Medicine Hematology
DX: G61.81 Chronic inflammatory demyelinating polyneuritis (principal)
CPT/HCPCS: 96365; 96366; J1459; J1642

== ENCOUNTER 2020-05-23 07:30 | Outpatient (CLI) | payer OTHER ==
[~2020-05-23 07:30] MED LIST changes: +IMMUNE GLOBULIN 10% 10GM 100ML BOTTLE (PRIVIGEN) (J1459 PER 500MG) As Ordered ONE; +IMMUNE GLOBULIN 10% 10GM 100ML BOTTLE (PRIVIGEN) (J1459 PER 500MG) ONE; +IMMUNE GLOBULIN 10% 40GM 400ML BOTTLE (PRIVIGEN) (J1459 PER 500MG) As Ordered ONE; +IMMUNE GLOBULIN 10% 40GM 400ML BOTTLE (PRIVIGEN) (J1459 PER 500MG) ONE
[2020-08-25] MEDS ORDERED: FERR325T3 PO (10:08)
== END 2020-05-23 10:30 | disposition home or self-care (01) ==
LOC: M INFU 07:30
PROVIDERS: ATTEND Internal Medicine Hematology
DX: G61.81 Chronic inflammatory demyelinating polyneuritis (principal)
CPT/HCPCS: 96365; 96366; J1459; J1642

== ENCOUNTER 2020-06-13 06:26 | Outpatient (CLI) | payer OTHER ==
[~2020-06-13] VITALS: Ht 182.9 cm; Wt 129.6 kg
[~2020-06-13 06:26] MED LIST changes: -IMMUNE GLOBULIN 10% 10GM 100ML BOTTLE (PRIVIGEN) (J1459 PER 500MG) As Ordered ONE; -IMMUNE GLOBULIN 10% 10GM 100ML BOTTLE (PRIVIGEN) (J1459 PER 500MG) ONE; -IMMUNE GLOBULIN 10% 40GM 400ML BOTTLE (PRIVIGEN) (J1459 PER 500MG) As Ordered ONE; -IMMUNE GLOBULIN 10% 40GM 400ML BOTTLE (PRIVIGEN) (J1459 PER 500MG) ONE
[2020-06-13 07:35] VITALS: BP 178/80
[2020-06-13] MEDS ORDERED: SODIUM CHLORIDE 0.9% INJ 10 ML SYR IV PRN (07:45)
[2020-06-13] MEDS ORDERED: IMMUNE GLOBULIN 10% 40 GM in IV 1 EA IV ONE (07:45)
[2020-06-13] MEDS ORDERED: IMMUNE GLOBULIN 10% 40GM 400ML BOTTLE (PRIVIGEN) (J1459 PER 500MG) As Ordered ONE (07:45)
[2020-06-13] MEDS ORDERED: IMMUNE GLOBULIN 10% 10 GM in IV 1 EA IV ONE (07:45)
[2020-06-13] MEDS ORDERED: IMMUNE GLOBULIN 10% 10GM 100ML BOTTLE (PRIVIGEN) (J1459 PER 500MG) As Ordered ONE (07:45)
[2020-06-13 08:20] VITALS: BP 155/68
[2020-06-13 08:50] VITALS: BP 151/67
[2020-06-13] MEDS ORDERED: SODIUM CHLORIDE 0.9% INJ 10 ML SYR IV SCH (09:00)
[2020-06-13 09:20] VITALS: BP 157/73
[2020-06-13 09:50] VITALS: BP 150/70
[2020-06-13 10:40] VITALS: BP 148/72
[2020-08-25] MEDS ORDERED: FERR325T3 PO (10:08)
== END 2020-06-13 10:40 | disposition home or self-care (01) ==
LOC: M INFU 06:26
PROVIDERS: ATTEND Internal Medicine Medical Oncology
DX: D83.9 Common variable immunodeficiency, unspecified (principal)
CPT/HCPCS: 96365; 96366; J1459

== ENCOUNTER 2020-07-04 07:01 | Outpatient (CLI) | payer OTHER ==
[~2020-07-04] VITALS: Ht 182.9 cm; Wt 129.6 kg
[2020-07-04 07:05] VITALS: BP 187/87
[2020-07-04] MEDS ORDERED: IMMUNE GLOBULIN 10% 10GM 100ML BOTTLE (PRIVIGEN) (J1459 PER 500MG) As Ordered ONE (07:15)
[2020-07-04] MEDS ORDERED: IMMUNE GLOBULIN 10% 40GM 400ML BOTTLE (PRIVIGEN) (J1459 PER 500MG) As Ordered ONE (07:15)
[2020-07-04] MEDS ORDERED: SODIUM CHLORIDE 0.9% INJ 10 ML SYR IV PRN (07:30)
[2020-07-04] MEDS ORDERED: IMMUNE GLOBULIN 10% 10 GM in IV 1 EA IV ONE (07:30)
[2020-07-04] MEDS ORDERED: IMMUNE GLOBULIN 10% 40 GM in IV 1 EA IV ONE (07:30)
[2020-07-04 08:00] VITALS: BP 173/80
[2020-07-04 08:31] VITALS: BP 167/76
[2020-07-04 08:59] VITALS: BP 167/75
[2020-07-04] MEDS ORDERED: SODIUM CHLORIDE 0.9% INJ 10 ML SYR IV SCH (09:00)
[2020-07-04 10:20] VITALS: BP 174/77
[2020-08-25] MEDS ORDERED: FERR325T3 PO (10:08)
== END 2020-07-04 10:20 | disposition home or self-care (01) ==
LOC: M INFU 07:01
PROVIDERS: ATTEND Internal Medicine Medical Oncology
DX: D83.9 Common variable immunodeficiency, unspecified (principal)
CPT/HCPCS: 96365; 96366; J1459

== ENCOUNTER 2020-07-08 09:01 | Outpatient (CLI) | payer OTHER ==
[~2020-07-08] VITALS: Ht 180.3 cm; Wt 132.5 kg
[~2020-07-08 09:01] MED LIST changes: +ACETAMINOPHEN 650 MG PO PO ONE; +SODIUM CHLORIDE 0.9% INJ 10 ML SYR IV PRN; +SODIUM CHLORIDE 0.9% INJ 10 ML SYR IV SCH; +diphenhydrAMINE 25 MG IV IV ONE
[2020-07-08 09:05] VITALS: BP 160/90
[2020-07-08] MEDS ORDERED: ACETAMINOPHEN TAB 650MG DOSE (2X325MG) As Ordered ONE ×2 (09:16→09:52)
[2020-07-08] MEDS ORDERED: diphenhydrAMINE 50MG/ML VIAL (J1200) As Ordered ONE (09:16)
[2020-07-08] MEDS ORDERED: IRON SUCROSE 200 MG in NS 100 ML OVER 1HR IV ONE (09:30)
[2020-07-08 10:10] VITALS: BP 160/80
[2020-07-08 11:10] VITALS: BP 162/88
[2020-07-08 11:47] VITALS: BP 153/83
[2020-07-08 12:30] VITALS: BP 160/70
[2020-08-25] MEDS ORDERED: FERR325T3 PO (10:08)
== END 2020-07-08 12:35 | disposition home or self-care (01) ==
LOC: M INFU 09:01
PROVIDERS: ATTEND Internal Medicine Hematology & Oncology
DX: D50.9 Iron deficiency anemia, unspecified (principal); Z88.0 Allergy status to penicillin; Z88.2 Allergy status to sulfonamides; Z91.018 Allergy to other foods
CPT/HCPCS: 96365; 96366; 96375; J1200; J1756

== ENCOUNTER 2020-07-15 07:58 | Outpatient (CLI) | payer OTHER ==
[~2020-07-15] VITALS: Ht 182.9 cm; Wt 132.5 kg
[~2020-07-15 07:58] MED LIST changes: -ACETAMINOPHEN 650 MG PO PO ONE; -SODIUM CHLORIDE 0.9% INJ 10 ML SYR IV PRN; -SODIUM CHLORIDE 0.9% INJ 10 ML SYR IV SCH; -diphenhydrAMINE 25 MG IV IV ONE
[2020-07-15 08:20] VITALS: BP 166/79
[2020-07-15] MEDS ORDERED: diphenhydrAMINE 50MG/ML VIAL (J1200) IV ONE (08:30)
[2020-07-15] MEDS ORDERED: ACETAMINOPHEN TAB 650MG DOSE (2X325MG) PO ONE (08:30)
[2020-07-15] MEDS ORDERED: IRON SUCROSE 200 MG in NS 100 ML OVER 1HR IV ONE (08:30)
[2020-07-15 10:15] VITALS: BP 148/73
[2020-08-25] MEDS ORDERED: FERR325T3 PO (10:08)
== END 2020-07-15 10:20 | disposition home or self-care (01) ==
LOC: M INFU 07:58
PROVIDERS: ATTEND Internal Medicine Hematology & Oncology
DX: D50.9 Iron deficiency anemia, unspecified (principal); Z88.0 Allergy status to penicillin; Z88.2 Allergy status to sulfonamides; Z91.018 Allergy to other foods
CPT/HCPCS: 96365; 96366; 96375; J1200; J1756

== ENCOUNTER 2020-07-22 08:42 | Outpatient (CLI) | payer OTHER ==
[~2020-07-22] VITALS: Ht 182.9 cm; Wt 132.5 kg
[2020-07-22 09:00] VITALS: BP 164/70
[2020-07-22] MEDS ORDERED: ACETAMINOPHEN TAB 650MG DOSE (2X325MG) PO ONE (09:30)
[2020-07-22] MEDS ORDERED: IRON SUCROSE 200 MG in NS 100 ML OVER 1 HR IV ONE (09:30)
[2020-07-22] MEDS ORDERED: SODIUM CHLORIDE 0.9% INJ 10 ML SYR IV PRN (09:30)
[2020-07-22] MEDS ORDERED: diphenhydrAMINE 50MG/ML VIAL (J1200) IV ONE (09:30)
[2020-07-22 09:40] VITALS: BP 160/80
[2020-07-22 10:55] VITALS: BP 158/80
[2020-07-23] MEDS ORDERED: SODIUM CHLORIDE 0.9% INJ 10 ML SYR IV SCH (09:00)
[2020-08-25] MEDS ORDERED: FERR325T3 PO (10:08)
== END 2020-07-22 10:55 | disposition home or self-care (01) ==
LOC: M INFU 08:42
PROVIDERS: ATTEND Internal Medicine Hematology & Oncology
DX: D50.9 Iron deficiency anemia, unspecified (principal); Z88.0 Allergy status to penicillin; Z88.2 Allergy status to sulfonamides; Z91.018 Allergy to other foods
CPT/HCPCS: 96365; 96375; J1200; J1642; J1756

== ENCOUNTER 2020-07-25 06:59 | Outpatient (CLI) | payer OTHER ==
[~2020-07-25] VITALS: Ht 182.9 cm; Wt 129.6 kg
[2020-07-25 07:00] VITALS: BP 174/77
[2020-07-25] MEDS ORDERED: SODIUM CHLORIDE 0.9% INJ 10 ML SYR IV PRN (07:15)
[2020-07-25] MEDS ORDERED: IMMUNE GLOBULIN 10% 40 GM in IV 1 EA IV ONE (07:30)
[2020-07-25] MEDS ORDERED: IMMUNE GLOBULIN 10% 10 GM in IV 1 EA IV ONE (07:30)
[2020-07-25 07:44] VITALS: BP 148/67
[2020-07-25 08:15] VITALS: BP 143/65
[2020-07-25 08:42] VITALS: BP 161/73
[2020-07-25] MEDS ORDERED: SODIUM CHLORIDE 0.9% INJ 10 ML SYR IV SCH (09:00)
[2020-07-25 09:15] VITALS: BP 141/67
[2020-07-25 10:10] VITALS: BP 143/65
[2020-08-25] MEDS ORDERED: FERR325T3 PO (10:08)
== END 2020-07-25 10:10 | disposition home or self-care (01) ==
LOC: M INFU 06:59
PROVIDERS: ATTEND Internal Medicine Medical Oncology
DX: D83.9 Common variable immunodeficiency, unspecified (principal); Z88.0 Allergy status to penicillin; Z88.2 Allergy status to sulfonamides; Z91.018 Allergy to other foods
CPT/HCPCS: 96365; 96366; J1459; J1642

== ENCOUNTER 2020-07-29 08:57 | Outpatient (CLI) | payer OTHER ==
[~2020-07-29] VITALS: Ht 188 cm; Wt 132.5 kg
[~2020-07-29 08:57] MED LIST changes: +SODIUM CHLORIDE 0.9% INJ 10 ML SYR IV PRN
[2020-07-29] MEDS ORDERED: SODIUM CHLORIDE 0.9% INJ 10 ML SYR IV SCH (09:00)
[2020-07-29 09:15] VITALS: BP 182/90
[2020-07-29] MEDS ORDERED: diphenhydrAMINE 25 MG IV IV ONE (09:30)
[2020-07-29] MEDS ORDERED: ACETAMINOPHEN 650 MG PO PO ONE (09:30)
[2020-07-29] MEDS ORDERED: IRON SUCROSE 200 MG in NS 100 ML OVER 1 HR IV ONE (10:30)
[2020-07-29] MEDS ORDERED: LASI20TA3 PO (10:48)
[2020-07-29 11:20] VITALS: BP 168/78
[2020-08-25] MEDS ORDERED: FERR325T3 PO (10:08)
== END 2020-07-29 11:30 | disposition home or self-care (01) ==
LOC: M INFU 08:57
PROVIDERS: ATTEND Internal Medicine Hematology & Oncology
DX: D50.9 Iron deficiency anemia, unspecified (principal); Z88.0 Allergy status to penicillin; Z88.2 Allergy status to sulfonamides; Z91.010 Allergy to peanuts; Z91.018 Allergy to other foods
CPT/HCPCS: 96365; 96375; J1200; J1642; J1756

== ENCOUNTER 2020-08-15 06:55 | Outpatient (CLI) | payer OTHER ==
[~2020-08-15] VITALS: Ht 182.9 cm; Wt 129.6 kg
[~2020-08-15 06:55] MED LIST changes: +LASI20TA3 PO; -SODIUM CHLORIDE 0.9% INJ 10 ML SYR IV PRN
[2020-08-15 07:00] VITALS: BP 176/79
[2020-08-15] MEDS ORDERED: IMMUNE GLOBULIN 10% 40 GM in IV 1 EA IV ONE (07:30)
[2020-08-15] MEDS ORDERED: IMMUNE GLOBULIN 10% 10 GM in IV 1 EA IV ONE (07:30)
[2020-08-15] MEDS ORDERED: SODIUM CHLORIDE 0.9% INJ 10 ML SYR IV PRN (07:30)
[2020-08-15 07:45] VITALS: BP 178/79
[2020-08-15 08:15] VITALS: BP 156/66
[2020-08-15 08:45] VITALS: BP 167/77
[2020-08-15] MEDS ORDERED: SODIUM CHLORIDE 0.9% INJ 10 ML SYR IV SCH (09:00)
[2020-08-15 10:10] VITALS: BP 186/84
== END 2020-08-15 10:10 | disposition home or self-care (01) ==
LOC: M INFU 06:55
PROVIDERS: ATTEND Internal Medicine Medical Oncology
DX: D83.9 Common variable immunodeficiency, unspecified (principal)
CPT/HCPCS: 96365; 96366; J1459; J1642

== ENCOUNTER 2020-09-05 07:03 | Outpatient (CLI) | payer OTHER ==
[~2020-09-05] VITALS: Ht 182.9 cm; Wt 129.6 kg
[2020-09-05] MEDS ORDERED: SODIUM CHLORIDE 0.9% INJ 10 ML SYR IV PRN (07:15)
[2020-09-05] MEDS ORDERED: IMMUNE GLOBULIN 10% 40 GM in IV 1 EA IV ONE (07:15)
[2020-09-05] MEDS ORDERED: IMMUNE GLOBULIN 10% 10 GM in IV 1 EA IV ONE (07:15)
[2020-09-05] MEDS: SODIUM CHLORIDE 0.9% INJ 10 ML SYR IV SCH ×2 (07:26→10:25)
[2020-09-05 07:30] VITALS: BP 177/88
[2020-09-05 08:03] VITALS: BP 162/83
[2020-09-05 08:29] VITALS: BP 168/78
[2020-09-05 10:30] VITALS: BP 175/81
== END 2020-09-05 10:30 | disposition home or self-care (01) ==
LOC: M INFU 07:03
PROVIDERS: ATTEND Internal Medicine Medical Oncology
DX: D83.9 Common variable immunodeficiency, unspecified (principal); Z88.0 Allergy status to penicillin; Z88.2 Allergy status to sulfonamides
CPT/HCPCS: 96365; 96366; J1459; J1642

== ENCOUNTER 2020-09-26 07:06 | Outpatient (CLI) | payer OTHER ==
[~2020-09-26] VITALS: Ht 182.9 cm; Wt 129.6 kg
[~2020-09-26 07:06] MED LIST changes: +SODIUM CHLORIDE 0.9% INJ 10 ML SYR IV PRN
[2020-09-26 07:15] VITALS: BP 179/82
[2020-09-26] MEDS ORDERED: IMMUNE GLOBULIN 10% 40 GM in IV 1 EA IV ONE (07:30)
[2020-09-26] MEDS ORDERED: IMMUNE GLOBULIN 10% 10 GM in IV 1 EA IV ONE (07:30)
[2020-09-26 07:55] VITALS: BP 185/84
[2020-09-26 08:25] VITALS: BP 176/76
[2020-09-26 08:55] VITALS: BP 169/79
[2020-09-26] MEDS ORDERED: SODIUM CHLORIDE 0.9% INJ 10 ML SYR IV SCH (09:00)
[2020-09-26 09:30] VITALS: BP 144/76
[2020-09-26 10:15] VITALS: BP 138/74
== END 2020-09-26 10:15 | disposition home or self-care (01) ==
LOC: M INFU 07:06
PROVIDERS: ATTEND Internal Medicine Medical Oncology
DX: D83.9 Common variable immunodeficiency, unspecified (principal)
CPT/HCPCS: 96365; 96366; J1459; J1642

== ENCOUNTER 2020-10-17 06:58 | Outpatient (CLI) | payer OTHER ==
[~2020-10-17] VITALS: Ht 182.9 cm; Wt 130.6 kg
[~2020-10-17 06:58] MED LIST changes: -SODIUM CHLORIDE 0.9% INJ 10 ML SYR IV PRN
[2020-10-17 07:00] VITALS: BP 142/73
[2020-10-17] MEDS ORDERED: SODIUM CHLORIDE 0.9% INJ 10 ML SYR IV PRN (07:00)
[2020-10-17] MEDS ORDERED: IMMUNE GLOBULIN 10% 40 GM in IV 1 EA IV ONE (07:30)
[2020-10-17] MEDS ORDERED: IMMUNE GLOBULIN 10% 10 GM in IV 1 EA IV ONE (07:30)
[2020-10-17 07:45] VITALS: BP 146/71
[2020-10-17 08:13] VITALS: BP 143/68
[2020-10-17 08:45] VITALS: BP 160/78
[2020-10-17] MEDS ORDERED: SODIUM CHLORIDE 0.9% INJ 10 ML SYR IV SCH (09:00)
[2020-10-17 10:15] VITALS: BP 154/73
== END 2020-10-17 10:15 | disposition home or self-care (01) ==
LOC: M INFU 06:58
PROVIDERS: ATTEND Internal Medicine Medical Oncology
DX: D83.9 Common variable immunodeficiency, unspecified (principal)
CPT/HCPCS: 96365; 96366; J1459; J1642

== ENCOUNTER 2020-11-07 07:11 | Outpatient (CLI) | payer OTHER ==
[~2020-11-07] VITALS: Ht 182.9 cm; Wt 130.6 kg
[~2020-11-07 07:11] MED LIST changes: +SODIUM CHLORIDE 0.9% INJ 10 ML SYR IV PRN
[2020-11-07] MEDS ORDERED: IMMUNE GLOBULIN 10% 10 GM in IV 1 EA IV ONE (07:30)
[2020-11-07] MEDS ORDERED: IMMUNE GLOBULIN 10% 40 GM in IV 1 EA IV ONE (07:30)
[2020-11-07 07:48] VITALS: BP 178/86
[2020-11-07 08:00] VITALS: BP 169/77
[2020-11-07 08:30] VITALS: BP 175/79
[2020-11-07 09:00] VITALS: BP 174/81
[2020-11-07] MEDS ORDERED: SODIUM CHLORIDE 0.9% INJ 10 ML SYR IV SCH (09:00)
[2020-11-07 10:00] VITALS: BP 171/79
[2020-11-07 10:30] VITALS: BP 177/81
== END 2020-11-07 10:30 | disposition home or self-care (01) ==
LOC: M INFU 07:11
PROVIDERS: ATTEND Internal Medicine Medical Oncology
DX: D83.9 Common variable immunodeficiency, unspecified (principal); Z88.0 Allergy status to penicillin; Z88.2 Allergy status to sulfonamides
CPT/HCPCS: 96365; 96366; J1459; J1642

== ENCOUNTER → 2020-11-14 | Outpatient (REF) | payer OTHER ==
[~2020-11-14] MED LIST changes: -SODIUM CHLORIDE 0.9% INJ 10 ML SYR IV PRN
[2020-11-14 11:30] LABS: HEMOGLOBIN A1c 5.1 %
[2020-11-14 11:45] LABS: FREE T3 2.1 PG/ML (2.2-4.0); FREE T4 1.13 NG/DL (0.76-1.46); THYROID STIMULATING HORMONE 5.41 uIU/ML (0.358-3.740)
== END ==
LOC: M LAB REF 09:35
PROVIDERS: ATTEND Family Medicine
DX: E03.9 Hypothyroidism, unspecified (principal); Z79.899 Other long term (current) drug therapy

== ENCOUNTER → 2020-11-24 | Outpatient (REF) | payer OTHER ==
[2020-11-24 12:54] LABS: FREE T4 1.19 NG/DL (0.76-1.46); THYROID STIMULATING HORMONE 4.52 uIU/ML (0.358-3.740)
== END ==
LOC: M LAB REF 11:07
PROVIDERS: ATTEND Family Medicine
DX: E03.9 Hypothyroidism, unspecified (principal)

== ENCOUNTER 2020-11-28 07:13 | Outpatient (CLI) | payer OTHER ==
[~2020-11-28] VITALS: Ht 180.3 cm; Wt 103.6 kg
[~2020-11-28 07:13] MED LIST changes: +IMMUNE GLOBULIN 10% 10 GM in IV 1 EA IV ONE; +IMMUNE GLOBULIN 10% 40 GM in IV 1 EA IV ONE; +SODIUM CHLORIDE 0.9% INJ 10 ML SYR IV PRN
[2020-11-28 07:15] VITALS: BP 170/88
[2020-11-28] MEDS ORDERED: IMMUNE GLOBULIN 10% 10 GM in IV 1 EA IV ONE (07:30)
[2020-11-28] MEDS ORDERED: IMMUNE GLOBULIN 10% 40 GM in IV 1 EA IV ONE (07:30)
[2020-11-28 08:00] VITALS: BP 174/81
[2020-11-28 08:30] VITALS: BP 168/88
[2020-11-28 09:00] VITALS: BP 174/80
[2020-11-28] MEDS ORDERED: SODIUM CHLORIDE 0.9% INJ 10 ML SYR IV SCH (09:00)
[2020-11-28 09:30] VITALS: BP 170/72
[2020-11-28 10:00] VITALS: BP 170/78
== END 2020-11-28 10:25 | disposition home or self-care (01) ==
LOC: M INFU 07:13
PROVIDERS: ATTEND Internal Medicine Medical Oncology
DX: D83.9 Common variable immunodeficiency, unspecified (principal); Z88.0 Allergy status to penicillin; Z88.2 Allergy status to sulfonamides
CPT/HCPCS: 96365; 96366; J1459; J1642

== ENCOUNTER 2020-12-19 07:06 | Outpatient (CLI) | payer OTHER ==
[~2020-12-19] VITALS: Ht 182.9 cm; Wt 130.6 kg
[~2020-12-19 07:06] MED LIST changes: -IMMUNE GLOBULIN 10% 10 GM in IV 1 EA IV ONE; -IMMUNE GLOBULIN 10% 40 GM in IV 1 EA IV ONE; -SODIUM CHLORIDE 0.9% INJ 10 ML SYR IV PRN
[2020-12-19 07:25] VITALS: BP 182/90
[2020-12-19] MEDS ORDERED: IMMUNE GLOBULIN 10% 40 GM in IV 1 EA IV ONE (07:30)
[2020-12-19] MEDS ORDERED: IMMUNE GLOBULIN 10% 10 GM in IV 1 EA IV ONE (07:30)
[2020-12-19] MEDS ORDERED: SODIUM CHLORIDE 0.9% INJ 10 ML SYR IV PRN (07:30)
[2020-12-19 07:55] VITALS: BP 148/72
[2020-12-19 08:25] VITALS: BP 156/78
[2020-12-19] MEDS ORDERED: SODIUM CHLORIDE 0.9% INJ 10 ML SYR IV SCH (09:00)
[2020-12-19 10:35] VITALS: BP 139/73
== END 2020-12-19 10:35 | disposition home or self-care (01) ==
LOC: M INFU 07:06
PROVIDERS: ATTEND Internal Medicine Medical Oncology
DX: D83.9 Common variable immunodeficiency, unspecified (principal); Z88.0 Allergy status to penicillin; Z88.2 Allergy status to sulfonamides
CPT/HCPCS: 96365; 96366; J1459; J1642

== ENCOUNTER 2021-01-09 07:03 | Outpatient (CLI) | payer OTHER ==
[~2021-01-09] VITALS: Ht 182.9 cm; Wt 130.6 kg
[2021-01-09 07:05] VITALS: BP 184/87
[2021-01-09] MEDS ORDERED: SODIUM CHLORIDE 0.9% INJ 10 ML SYR IV PRN (07:30)
[2021-01-09] MEDS ORDERED: IMMUNE GLOBULIN 10% 40 GM in IV 1 EA IV ONE (07:30)
[2021-01-09] MEDS ORDERED: IMMUNE GLOBULIN 10% 10 GM in IV 1 EA IV ONE (07:30)
[2021-01-09 08:00] VITALS: BP 167/82
[2021-01-09 08:30] VITALS: BP 167/74
[2021-01-09 09:00] VITALS: BP 154/73
[2021-01-09] MEDS ORDERED: SODIUM CHLORIDE 0.9% INJ 10 ML SYR IV SCH (09:00)
== END 2021-01-09 10:20 | disposition home or self-care (01) ==
LOC: M INFU 07:03
PROVIDERS: ATTEND Internal Medicine Medical Oncology
DX: D83.9 Common variable immunodeficiency, unspecified (principal); Z88.0 Allergy status to penicillin; Z88.2 Allergy status to sulfonamides
CPT/HCPCS: J1459; J1642

== ENCOUNTER → 2021-01-16 | Outpatient (CLI) | payer OTHER ==
--- NOTE | 2021-01-20 05:57 | REP ---
INDICATION: ABN FINDING OF LUNG COMPARISON: Multiple prior examinations including most recent dated 03/25/2020. TECHNIQUE: Axial noncontrast images from the thoracic inlet to the upper abdomen with coronal and sagittal reformations. This CT examination was performed using the following dose reduction techniques: Automated exposure control, adjustment of mA and/or kv according to the patient's size, and use of iterative reconstruction technique. FINDINGS: The lung hernandes demonstrate chronic pulmonary vascular congestion with cephalization and chronic pulmonary vasculature as well as increased prominent interstitial markings throughout the bilateral lung hernandes along with superimposed chronic scattered fibroatelectatic changes. There is an area of somewhat ill-defined consolidation along the posteromedial right upper lobe with irregular linear changes converging to smaller areas of ill-defined opacity (series 201, images 47-68) which appear similar to prior examination. A small area of ill-defined nodular opacity in the apical left lower lobe (series 201, image 58) may be slightly decreased in size from prior examination. Ill-defined bibasilar atelectasis (right greater than left) are again noted and similar to prior examination. A rounded left basilar masslike opacity measuring 4.1 cm with adjacent atelectasis and nodularity (series 201 images 83-100) is relatively new as compared with most recent prior examination, but was identified on multiple prior examinations including 03/05/2019 with the area measured approximately 3 cm. Significant mediastinal and hilar adenopathy is also evident and stable. No significant pleural effusion. No pneumothorax. [id number] identified with tip in the SVC. Cardiomegaly is unchanged. No pericardial effusion. Thoracic aorta without aneurysm. Limited upper abdomen demonstrates suspected hydronephrosis to the right kidney. IMPRESSION: 1. Ill-defined areas of pulmonary parenchymal opacity along with scattered atelectasis and scarring are relatively similar to prior examinations. Associated adenopathy again noted and unchanged. 2. Chronic cardiomegaly and pulmonary vascular congestion. 3. Limited evaluation of the upper abdomen suggesting right hydronephrosis. <Electronically signed by Juan Alberto Bahena > 01/20/21 [id number]
== END ==
LOC: M RAD 10:51
PROVIDERS: ATTEND Internal Medicine Pulmonary Disease
DX: R91.8 Other nonspecific abnormal finding of lung field (principal); I51.7 Cardiomegaly; J98.11 Atelectasis

== ENCOUNTER → 2021-01-26 | Outpatient (REF) | payer OTHER ==
[2021-01-26 11:48] LABS: BLOOD UREA NITROGEN 14 MG/DL (7-18); CALCIUM LEVEL 8.2 MG/DL (8.5-10.1); CARBON DIOXIDE LEVEL 30 MEQ/L (21-32); CHLORIDE LEVEL 108 MEQ/L (98-107); CREATININE FOR GFR 0.92 MG/DL (0.70-1.30); FREE T3 2.2 PG/ML (2.2-4.0); FREE T4 1.11 NG/DL (0.76-1.46); GLOMERULAR FILTRATION RATE > 60.0 (>56); GLUCOSE, FASTING 80 MG/DL (70-100); POTASSIUM SERUM 3.7 MEQ/L (3.5-5.1); SODIUM LEVEL 142 MEQ/L (136-145)
[2021-01-27 21:37] LABS: HEMOGLOBIN A1c 5.8 %
== END ==
LOC: M LAB REF 09:53
PROVIDERS: ATTEND Family Medicine
DX: E03.9 Hypothyroidism, unspecified (principal); Z79.899 Other long term (current) drug therapy; R60.9 Edema, unspecified

== ENCOUNTER 2021-01-30 07:13 | Outpatient (CLI) | payer OTHER ==
[~2021-01-30] VITALS: Ht 182.9 cm; Wt 130.6 kg
[2021-01-30 07:20] VITALS: BP 160/74
[2021-01-30] MEDS ORDERED: IMMUNE GLOBULIN 10% 40 GM in IV 1 EA IV ONE (07:30)
[2021-01-30] MEDS ORDERED: SODIUM CHLORIDE 0.9% INJ 10 ML SYR IV PRN (07:30)
[2021-01-30] MEDS ORDERED: IMMUNE GLOBULIN 10% 10 GM in IV 1 EA IV ONE (07:30)
[2021-01-30 07:53] VITALS: BP 149/70
[2021-01-30 08:30] VITALS: BP 146/72
[2021-01-30 09:00] VITALS: BP 143/75
[2021-01-30] MEDS ORDERED: SODIUM CHLORIDE 0.9% INJ 10 ML SYR IV SCH (09:00)
[2021-01-30 10:13] VITALS: BP 138/63
== END 2021-01-30 10:15 | disposition home or self-care (01) ==
LOC: M INFU 07:13
PROVIDERS: ATTEND Internal Medicine Medical Oncology
DX: D83.9 Common variable immunodeficiency, unspecified (principal); Z88.0 Allergy status to penicillin; Z88.2 Allergy status to sulfonamides
CPT/HCPCS: 96365; 96366; J1459; J1642

== ENCOUNTER → 2021-02-20 | Outpatient (CLI) | payer OTHER ==
[~2021-02-20] VITALS: Ht 182.9 cm; Wt 130.6 kg
[~2021-02-20] MED LIST changes: +IMMUNE GLOBULIN 10% 10 GM in IV 1 EA IV ONE; +IMMUNE GLOBULIN 10% 40 GM in IV 1 EA IV ONE; +LEVO150T7 PO; +SODIUM CHLORIDE 0.9% INJ 10 ML SYR IV PRN; +SODIUM CHLORIDE 0.9% INJ 10 ML SYR IV SCH
[2021-02-20 08:15] VITALS: BP 165/77
[2021-02-20 08:45] VITALS: BP 148/74
[2021-02-20 09:15] VITALS: BP 149/78
[2021-02-20 10:42] VITALS: BP 182/84
[2021-02-20 11:08] VITALS: BP 181/84
== END ==
LOC: M INFU 07:30
PROVIDERS: ATTEND Internal Medicine Hematology & Oncology
DX: D83.9 Common variable immunodeficiency, unspecified (principal); Z88.0 Allergy status to penicillin; Z88.2 Allergy status to sulfonamides
CPT/HCPCS: 96365; 96366; 96523; J1459; J1642

== ENCOUNTER → 2021-03-09 | Outpatient (REF) | payer OTHER ==
[~2021-03-09] MED LIST changes: -IMMUNE GLOBULIN 10% 10 GM in IV 1 EA IV ONE; -IMMUNE GLOBULIN 10% 40 GM in IV 1 EA IV ONE; -SODIUM CHLORIDE 0.9% INJ 10 ML SYR IV PRN; -SODIUM CHLORIDE 0.9% INJ 10 ML SYR IV SCH
[2021-03-09 10:21] LABS: FREE T3 2.4 PG/ML (2.2-4.0); FREE T4 1.43 NG/DL (0.76-1.46); THYROID STIMULATING HORMONE 0.752 uIU/ML (0.358-3.740)
== END ==
LOC: M LAB REF 09:19
PROVIDERS: ATTEND Family Medicine
DX: E03.9 Hypothyroidism, unspecified (principal)

== ENCOUNTER 2021-03-22 10:12 | Outpatient (CLI) | payer OTHER ==
[~2021-03-22] VITALS: Ht 182.9 cm; Wt 130.6 kg
[~2021-03-22 10:12] MED LIST changes: +SODIUM CHLORIDE 0.9% INJ 10 ML SYR IV SCH
[2021-03-22 10:15] VITALS: BP 197/84
[2021-03-22] MEDS ORDERED: IMMUNE GLOBULIN 10% 40 GM in IV 1 EA IV ONE (10:30)
[2021-03-22] MEDS ORDERED: SODIUM CHLORIDE 0.9% INJ 10 ML SYR IV PRN (10:30)
[2021-03-22] MEDS ORDERED: IMMUNE GLOBULIN 10% 10 GM in IV 1 EA IV ONE (10:30)
[2021-03-22 11:00] VITALS: BP 173/77
[2021-03-22 12:00] VITALS: BP 188/81
[2021-03-22 12:30] VITALS: BP 175/75
[2021-03-22 13:30] VITALS: BP 164/68
== END 2021-03-22 13:30 | disposition home or self-care (01) ==
LOC: M INFU 10:12
PROVIDERS: ATTEND Internal Medicine Hematology & Oncology
DX: D83.9 Common variable immunodeficiency, unspecified (principal); Z88.0 Allergy status to penicillin; Z88.2 Allergy status to sulfonamides
CPT/HCPCS: 96365; 96366; J1459; J1642

== ENCOUNTER → 2021-07-25 | Outpatient (CLI) | payer OTHER ==
[~2021-07-25] MED LIST changes: -SODIUM CHLORIDE 0.9% INJ 10 ML SYR IV SCH
--- NOTE | 2021-07-25 10:35 | REP ---
INDICATION: OTHER DISORDERS OF LUNG COMPARISON: Chest CT dated 01/16/2021 TECHNIQUE: PA and lateral. FINDINGS: Significant diffuse bilateral infiltrates are appreciated. Small pleural effusions cannot be excluded. Evaluation of the mediastinum and cardiac silhouette are limited due to overlying opacities. [id number] identified with tip in the SVC. No pneumothorax. Skeletal structures demonstrate old healed right rib fractures. IMPRESSION: Diffuse bilateral airspace disease. Differential diagnosis includes multifocal pneumonia as well as neoplasm. <Electronically signed by Juan Alberto Bahena > 07/25/21 [id number]
== END ==
LOC: M RAD 10:05
PROVIDERS: ATTEND Internal Medicine Pulmonary Disease
DX: J98.4 Other disorders of lung (principal); J96.11 Chronic respiratory failure with hypoxia; R91.8 Other nonspecific abnormal finding of lung field; Z95.828 Presence of other vascular implants and grafts

== ENCOUNTER → 2021-07-28 | Outpatient (CLI) | payer OTHER ==
[~2021-07-28] MED LIST changes: +AZIT500T5 PO
--- NOTE | 2021-07-28 08:59 | REP ---
INDICATION: ABN FINDINGS OF LUNG FIELD COMPARISON: None TECHNIQUE: Axial noncontrast images from the thoracic inlet to the upper abdomen with coronal and sagittal reformations. This CT examination was performed using the following dose reduction techniques: Automated exposure control, adjustment of mA and/or kv according to the patient's size, and use of iterative reconstruction technique. FINDINGS: The lung hernandes again demonstrate diffuse bilateral nodules and ill-defined consolidations along with interstitial/septal thickening, pleural thickening, and marked mediastinal/hilar adenopathy. No significant effusion. Tracheobronchial tree is patent. Thoracic aorta, pulmonary vasculature, and heart/pericardium are stable with moderate cardiomegaly again suspected. No pericardial effusion. IMPRESSION: Diffuse bilateral nodules and ill-defined areas of consolidation along with pleural thickening and adenopathy similar to prior examination. No appropriate history has been given. Differential diagnosis includes lymphoma, primary/metastatic neoplasm, and granulomatous diseases. <Electronically signed by Juan Alberto aBhena > 07/28/21 0837
== END ==
LOC: M RAD 08:31
PROVIDERS: ATTEND Internal Medicine Pulmonary Disease
DX: R91.8 Other nonspecific abnormal finding of lung field (principal)

== ENCOUNTER → 2021-09-01 | Outpatient (CLI) | payer OTHER ==
[~2021-09-01] MED LIST changes: +PRED5TA PO; +SYNT150T PO
== END ==
LOC: M LABSMTC 12:06
PROVIDERS: ATTEND Anesthesiology
DX: Z01.812 Encounter for preprocedural laboratory examination (principal); Z20.822 Contact with and (suspected) exposure to COVID-19

== ENCOUNTER → 2021-09-04 | Outpatient (CLI) | payer OTHER ==
[2021-09-04 10:29] LABS: PLATELET COUNT, AUTOMATED 112 10^3/uL (150-450)
[2021-09-04 10:45] LABS: INR 1.08; PROTHROMBIN TIME 14.4 SECONDS (12.7-14.5)
[2021-09-04 10:46] LABS: PARTIAL THROMBOPLASTIN TIME 31.8 SECONDS (25.9-37.0)
== END ==
LOC: M WUC 09:12
PROVIDERS: ATTEND Internal Medicine Pulmonary Disease
DX: R91.8 Other nonspecific abnormal finding of lung field (principal)

== ENCOUNTER 2021-09-06 06:11 | Day surgery (SDC) | payer OTHER ==
[~2021-09-06] VITALS: Ht 182.9 cm; Wt 116.0 kg
[~2021-09-06 06:11] MED LIST changes: +ALBUTEROL SULFATE 2.5 MG/0.5 ML INH NEB SOLN NEB ONE; +IVIG IV; +LIDOCAINE 4% INJ 5ML AMP NEB ONE; +LR 1,000 ML IV ONE
[2021-09-06] MEDS ORDERED: CETACAINE SPRAY 5GM As Ordered ONE (07:14)
[2021-09-06] MEDS ORDERED: EPINEPHrine 1MG/10ML SYRINGE 1.5IN As Ordered ONE (07:14)
[2021-09-06] MEDS ORDERED: THROMBIN SOLN 5,000 UNITS VIAL As Ordered ONE (07:14)
[2021-09-06] MEDS ORDERED: ROCURONIUM BROMIDE 50 MG/5 ML VIAL As Ordered ONE (07:20)
[2021-09-06] MEDS ORDERED: fentaNYL 100 MCG/2 ML INJECTION As Ordered ONE (07:20)
[2021-09-06] MEDS ORDERED: ONDANSETRON 4MG/2ML VIAL As Ordered ONE (07:20)
[2021-09-06] MEDS ORDERED: propofoL 200 MG/20 ML VIAL As Ordered ONE (07:20)
[2021-09-06] MEDS ORDERED: dexameTHASONE 4 MG/ML 1ML VIAL (J1100 PER 1MG) As Ordered ONE (07:20)
[2021-09-06] MEDS ORDERED: MIDAZOLAM INJ 2MG/2ML VIAL (J2250 PER 1MG) As Ordered ONE (07:21)
[2021-09-06] MEDS ORDERED: LIDOCAINE 2% 100MG/5ML SDV (FOR ANES.) As Ordered ONE (07:26)
[2021-09-06] MEDS ORDERED: PHENYLephrine 500MCG 5ML (100MCG/ML) SYRINGE As Ordered ONE (07:53)
[2021-09-06] MEDS ORDERED: SUGAMMADEX SODIUM 500 MG/5 ML VIAL (BRIDION) As Ordered ONE (08:21)
[2021-09-06] MEDS ORDERED: ONDANSETRON 4MG/2ML VIAL IV PRN (09:00)
[2021-09-06] MEDS ORDERED: PERCOCET 5MG/325MG TAB PO PRN (09:00)
[2021-09-06] MEDS ORDERED: fentaNYL 100 MCG/2 ML INJECTION IV PRN (09:00)
[2021-09-06] MEDS ORDERED: LR 1,000 ML IV SCH (09:00)
[2021-09-06 10:10] VITALS: BP 161/79
[2021-10-03] MEDS ORDERED: [UNRECOGNIZED DRUG - CODE] SC (08:08)
[2021-12-07] MEDS ORDERED: prednisone PO (15:12)
== END 2021-09-06 11:00 | disposition home or self-care (01) ==
LOC: M SDC 06:11
PROVIDERS: ATTEND Internal Medicine Pulmonary Disease
DX: J44.9 Chronic obstructive pulmonary disease, unspecified (principal); J98.4 Other disorders of lung; J96.11 Chronic respiratory failure with hypoxia; Z79.52 Long term (current) use of systemic steroids; Z88.0 Allergy status to penicillin; Z88.2 Allergy status to sulfonamides; Z91.018 Allergy to other foods
CPT/HCPCS: 31624; 31628; 31652; 71045; 76000; 87070; 87102; 87116; 87205; 87206; 88108; 88305; 88313; 93005; J1100; J2250; J2370; J2405; J3010; S2900

== ENCOUNTER → 2021-09-28 | Outpatient (REF) | payer OTHER ==
[~2021-09-28] MED LIST changes: -ALBUTEROL SULFATE 2.5 MG/0.5 ML INH NEB SOLN NEB ONE; -IVIG IV; -LIDOCAINE 4% INJ 5ML AMP NEB ONE; -LR 1,000 ML IV ONE
[2021-09-28 10:16] LABS: FREE T4 1.44 NG/DL (0.76-1.46); THYROID STIMULATING HORMONE 1.27 uIU/ML (0.358-3.740)
== END ==
LOC: M LAB REF 09:14
PROVIDERS: ATTEND Family Medicine
DX: E03.9 Hypothyroidism, unspecified (principal)

== ENCOUNTER → 2021-10-26 | Outpatient (REF) | LOC: M LABSMTC 10:42 | PROVIDERS: ATTEND Pediatrics | DX: Z20.822 Contact with and (suspected) exposure to COVID-19 (principal) ==

== ENCOUNTER → 2021-11-13 | Outpatient (CLI) | payer OTHER | LOC: M WUC 13:05 | PROVIDERS: ATTEND Internal Medicine Pulmonary Disease | DX: R91.8 Other nonspecific abnormal finding of lung field (principal); R06.02 Shortness of breath ==

== ENCOUNTER → 2021-11-15 | Outpatient (REF) | payer OTHER | LOC: M LAB REF 12:59 | PROVIDERS: ATTEND Internal Medicine Pulmonary Disease | DX: J98.4 Other disorders of lung (principal); J96.11 Chronic respiratory failure with hypoxia; Z79.52 Long term (current) use of systemic steroids ==

== ENCOUNTER → 2021-11-17 | Outpatient (REF) | LOC: M LABSMTC 09:01 | PROVIDERS: ATTEND Pediatrics | DX: Z20.822 Contact with and (suspected) exposure to COVID-19 (principal) ==

== ENCOUNTER 2021-11-22 13:49 | Inpatient (IN) | payer OTHER ==
[~2021-11-22] VITALS: Ht 182.9 cm; Wt 113.2 kg
[~2021-11-22 13:49] MED LIST changes: +IVIG IV
[2021-11-22] MEDS ORDERED: NS 1,000 ML IV SCH (14:05)
[2021-11-22] MEDS: COMBIVENT RESPIMAT 100-20MCG INHALER 4GM INH SCH ×3 (14:22→21:05)
[2021-11-22] MEDS ORDERED: LevoFLOXacin IV 750 MG in IV 1 EA IV ONE (14:25)
[2021-11-22 15:17] LABS: VENOUS BASE EXCESS 1.6 (-2.0-2.0); VENOUS HCO3 29.1 MEQ/L (23.0-27.0); VENOUS O2 SATURATION 87.9 % (60.0-80.0); VENOUS PARTIAL PRESSURE CO2 59.2 mmHg (38.0-50.0); VENOUS PARTIAL PRESSURE O2 59.1 mmHg (30.0-50.0); VENOUS STANDARD HCO3 25.7 MEQ/L
[2021-11-22 15:22] LABS: BASO % 0.2 % (0.0-1.0); EOS % 0.3 % (0.0-3.0); HEMATOCRIT 38.9 % (42.0-52.0); HEMOGLOBIN 11.8 g/dl (13.5-17.5); LYMPH # 0.3 10^3/uL (1.5-5.0); LYMPH % 4.7 % (24.0-44.0); MEAN CORPUSCULAR HEMOGLOBIN 24.2 pg (27.0-33.0); MEAN CORPUSCULAR HGB CONC 30.3 g/dl (32.0-36.5); MEAN CORPUSCULAR VOLUME 79.9 fl (80.0-96.0); MONO # 0.3 10^3/uL (0.0-0.8); MONO % 5.5 % (2.0-8.0); NEUTROPHILS # 5.5 10^3/uL (1.5-8.5); NEUTROPHILS % 88.8 % (36.0-66.0); PLATELET COUNT, AUTOMATED 105 10^3/uL (150-450); RED BLOOD COUNT 4.87 10^6/uL (4.30-6.10); WHITE BLOOD COUNT 6.2 10^3/uL (4.0-10.0)
[2021-11-22 15:33] LABS: INR 1.02; PROTHROMBIN TIME 13.8 SECONDS (12.7-14.5)
[2021-11-22 15:34] LABS: PARTIAL THROMBOPLASTIN TIME 45.7 SECONDS (25.9-37.0)
[2021-11-22 15:56] LABS: ALBUMIN 2.8 GM/DL (3.2-5.2); ALT/SGPT 21 U/L (12-78); BILIRUBIN,TOTAL 0.8 MG/DL (0.2-1.0); BLOOD UREA NITROGEN 27 MG/DL (7-18); C REACTIVE PROTEIN QUANTITATIV 7.95 MG/DL (0.00-0.30); CARBON DIOXIDE LEVEL 30 MEQ/L (21-32); CHLORIDE LEVEL 106 MEQ/L (98-107); CREATININE FOR GFR 0.84 MG/DL (0.70-1.30); FERRITIN 159 NG/ML (26-388); GLOMERULAR FILTRATION RATE > 60.0 (>56); GLUCOSE, FASTING 108 MG/DL (70-100); LDH LACTATE DEHYDROGENASE 318 U/L (87-241); POTASSIUM SERUM 4.5 MEQ/L (3.5-5.1); SODIUM LEVEL 140 MEQ/L (136-145)
[2021-11-22] MEDS: NS 1,000 ML IV SCH (16:45)
[2021-11-22] MEDS ORDERED: ACET-897 PO (17:39)
[2021-11-22] MEDS ORDERED: VITA-158 PO (17:39)
[2021-11-22] MEDS ORDERED: HOME MED LIST COMPLETE! XX SCH (17:40)
[2021-11-22] MEDS ORDERED: REMDESIVIR 200 MG in NS 250 ML IV ONE (21:00)
[2021-11-22] MEDS ORDERED: SODIUM CHLORIDE 0.9% INJ 10 ML SYR IV ONE (23:00)
[2021-11-23] VITALS (10 sets, daily range): BP systolic 95–131; BP diastolic 55–74
[2021-11-23] MEDS ORDERED: ISOVUE-370 76% 100ML VIAL As Ordered ONE (02:23)
[2021-11-23] MEDS ORDERED: LABETALOL 100MG/20ML VIAL IV STA (02:39)
[2021-11-23 07:30] LABS: HEMATOCRIT 38.6 % (42.0-52.0); HEMOGLOBIN 11.4 g/dl (13.5-17.5); LYMPH # 0.1 10^3/uL (1.5-5.0); LYMPH % 4.9 % (24.0-44.0); MEAN CORPUSCULAR HEMOGLOBIN 24.2 pg (27.0-33.0); MEAN CORPUSCULAR HGB CONC 29.5 g/dl (32.0-36.5); MONO # 0.1 10^3/uL (0.0-0.8); MONO % 5.2 % (2.0-8.0); NEUTROPHILS # 2.4 10^3/uL (1.5-8.5); NEUTROPHILS % 88.8 % (36.0-66.0); RED BLOOD COUNT 4.71 10^6/uL (4.30-6.10); WHITE BLOOD COUNT 2.7 10^3/uL (4.0-10.0)
[2021-11-23 07:33] LABS: PLATELET COUNT, AUTOMATED 76 10^3/uL (150-450)
[2021-11-23 08:01] LABS: ALBUMIN 2.6 GM/DL (3.2-5.2); ALT/SGPT 21 U/L (12-78); BILIRUBIN,DIRECT 0.2 MG/DL (0.0-0.2); BILIRUBIN,TOTAL 0.5 MG/DL (0.2-1.0); BLOOD UREA NITROGEN 27 MG/DL (7-18); CALCIUM LEVEL 8.2 MG/DL (8.5-10.1); CARBON DIOXIDE LEVEL 32 MEQ/L (21-32); CHLORIDE LEVEL 107 MEQ/L (98-107); CREATININE FOR GFR 0.91 MG/DL (0.70-1.30); GLOMERULAR FILTRATION RATE > 60.0 (>56); GLUCOSE, FASTING 125 MG/DL (70-100); POTASSIUM SERUM 5.3 MEQ/L (3.5-5.1); SODIUM LEVEL 141 MEQ/L (136-145); TOTAL PROTEIN 6.2 GM/DL (6.4-8.2)
[2021-11-23] MEDS ORDERED: ENOXAPARIN 40MG/0.4ML SYRINGE (J1650 PER 10MG) SC SCH (09:00)
[2021-11-23] MEDS: NS 1,000 ML IV SCH ×2 (11:40→22:37)
[2021-11-23] MEDS ORDERED: ROMIPLOSTIM 250MCG VIAL (NPLATE) (J2796 PER 10MCG) (FOR ONCOLOGY) SC ONE (12:00)
[2021-11-23] MEDS: dexameTHASONE 4 MG/ML 1ML VIAL (J1100 PER 1MG) IV SCH (12:11)
[2021-11-23 15:34] LABS: MAGNESIUM LEVEL 2.1 MG/DL (1.7-2.2)
[2021-11-23] MEDS: BENZONATATE 100MG CAPSULE PO PRN (18:07)
[2021-11-23] MEDS: LevoFLOXacin IV 750 MG in IV 1 EA IV SCH (18:08)
[2021-11-23] MEDS ORDERED: VANCOMYCIN HCL 1,000 MG, VIAL MATE ADAPTER 1 EACH in NS 250 ML IV SCH (18:35)
[2021-11-23 19:55] LABS: BLOOD UREA NITROGEN 27 MG/DL (7-18); CALCIUM LEVEL 7.9 MG/DL (8.5-10.1); CARBON DIOXIDE LEVEL 30 MEQ/L (21-32); CHLORIDE LEVEL 107 MEQ/L (98-107); CREATININE FOR GFR 1.02 MG/DL (0.70-1.30); GLOMERULAR FILTRATION RATE > 60.0 (>56); GLUCOSE, FASTING 206 MG/DL (70-100); POTASSIUM SERUM 4.8 MEQ/L (3.5-5.1); SODIUM LEVEL 141 MEQ/L (136-145)
[2021-11-23] MEDS: REMDESIVIR 100 MG in NS 250 ML IV SCH (20:24)
[2021-11-23 21:30] LABS: APPEARANCE, URINE CLEAR (CLEAR); BACTERIA, URINE AUTO NEGATIVE (NEGATIVE); BILIRUBIN, URINE AUTO NEGATIVE (NEGATIVE); BLOOD, URINE BLOOD NEGATIVE (NEGATIVE); COLOR, URINE YELLOW (YELLOW); GLUCOSE, URINE (UA) AUTO NEGATIVE (NEGATIVE); KETONE, URINE AUTO NEGATIVE (NEGATIVE); LEUKOCYTE ESTERASE, URINE AUTO NEGATIVE (NEGATIVE); MUCUS, URINE SMALL (NEGATIVE); NITRITE, URINE AUTO NEGATIVE (NEGATIVE); PROTEIN, URINE AUTO 1+ mg/dL (NEGATIVE); RBC, URINE AUTO 3 /HPF (0-3); SPECIFIC GRAVITY URINE AUTO 1.033 (1.002-1.035); SQUAMOUS EPITHELIAL CELL UR AU 0 /HPF (0-6); WBC, URINE AUTO 0 /HPF (0-3)
[2021-11-23] MEDS: SODIUM CHLORIDE 0.9% INJ 10 ML SYR IV SCH (21:38)
[2021-11-23] MEDS ORDERED: VANCOMYCIN HCL 1,000 MG, VIAL MATE ADAPTER 1 EACH in NS 250 ML IV ONE (23:00)
[2021-11-24] VITALS (9 sets, daily range): BP systolic 106–145; BP diastolic 60–70
[2021-11-24] MEDS ORDERED: VANCOMYCIN HCL 1,000 MG, VIAL MATE ADAPTER 1 EACH in NS 250 ML IV ONE ×3
[2021-11-24] MEDS: BENZONATATE 100MG CAPSULE PO PRN (04:25)
[2021-11-24 05:01] LABS: HEMATOCRIT 34.6 % (42.0-52.0); HEMOGLOBIN 10.1 g/dl (13.5-17.5); LYMPH # 0.2 10^3/uL (1.5-5.0); LYMPH % 5.3 % (24.0-44.0); MEAN CORPUSCULAR HEMOGLOBIN 24.4 pg (27.0-33.0); MEAN CORPUSCULAR HGB CONC 29.2 g/dl (32.0-36.5); MEAN CORPUSCULAR VOLUME 83.6 fl (80.0-96.0); MONO # 0.2 10^3/uL (0.0-0.8); MONO % 5.9 % (2.0-8.0); NEUTROPHILS # 2.9 10^3/uL (1.5-8.5); NEUTROPHILS % 88.2 % (36.0-66.0); RED BLOOD COUNT 4.14 10^6/uL (4.30-6.10); WHITE BLOOD COUNT 3.2 10^3/uL (4.0-10.0)
[2021-11-24 05:10] LABS: INR 1.11; PROTHROMBIN TIME 14.7 SECONDS (12.7-14.5)
[2021-11-24 05:17] LABS: PLATELET COUNT, AUTOMATED 61 10^3/uL (150-450)
[2021-11-24] MEDS: guaiFENesin DM LIQ 10ML UD PO PRN (05:27)
[2021-11-24] MEDS: LEVOTHYROXINE 150MCG TABLET (0.15MG) PO SCH (05:29)
[2021-11-24 05:34] LABS: ALBUMIN 2.5 GM/DL (3.2-5.2); ALT/SGPT 19 U/L (12-78); BILIRUBIN,DIRECT 0.2 MG/DL (0.0-0.2); BILIRUBIN,TOTAL 0.5 MG/DL (0.2-1.0); BLOOD UREA NITROGEN 26 MG/DL (7-18); CALCIUM LEVEL 7.7 MG/DL (8.5-10.1); CARBON DIOXIDE LEVEL 31 MEQ/L (21-32); CHLORIDE LEVEL 109 MEQ/L (98-107); CREATININE FOR GFR 0.81 MG/DL (0.70-1.30); FERRITIN 138 NG/ML (26-388); GLOMERULAR FILTRATION RATE > 60.0 (>56); GLUCOSE, FASTING 111 MG/DL (70-100); LDH LACTATE DEHYDROGENASE 326 U/L (87-241); NT-PRO BNP 5030 PG/ML (<125); POTASSIUM SERUM 5.2 MEQ/L (3.5-5.1); SODIUM LEVEL 144 MEQ/L (136-145); TOTAL PROTEIN 5.3 GM/DL (6.4-8.2)
[2021-11-24] MEDS: VANCOMYCIN HCL 750 MG, VIAL MATE ADAPTER 1 EACH in NS 250 ML IV SCH ×4 (06:32→21:12)
[2021-11-24] MEDS: dexameTHASONE 4 MG/ML 1ML VIAL (J1100 PER 1MG) IV SCH (08:16)
[2021-11-24] MEDS ORDERED: IMMUNE GLOBULIN 10% 10 GM in IV 1 EA IV ONE (14:00)
[2021-11-24] MEDS ORDERED: IMMUNE GLOBULIN 10% 20 GM in IV 1 EA IV ONE (14:00)
[2021-11-24] MEDS ORDERED: ACETAMINOPHEN TAB 650MG DOSE (2X325MG) PO ONE (14:30)
[2021-11-24] MEDS ORDERED: diphenhydrAMINE 25MG CAP PO ONE (14:30)
[2021-11-24] MEDS: LevoFLOXacin IV 750 MG in IV 1 EA IV SCH (17:05)
[2021-11-24 18:41] LABS: IMMUNOGLOBULIN A < 7.8 MG/DL (70-400)
[2021-11-24 21:54] LABS: MAGNESIUM LEVEL 1.9 MG/DL (1.7-2.2)
[2021-11-24] MEDS: REMDESIVIR 100 MG in NS 250 ML IV SCH (22:42)
[2021-11-24] MEDS: SODIUM CHLORIDE 0.9% INJ 10 ML SYR IV SCH (22:42)
[2021-11-25 04:40] VITALS: BP 128/75
[2021-11-25] MEDS: LEVOTHYROXINE 150MCG TABLET (0.15MG) PO SCH (05:57)
[2021-11-25 06:15] LABS: HEMATOCRIT 35.2 % (42.0-52.0); HEMOGLOBIN 10.1 g/dl (13.5-17.5); LYMPH # 0.2 10^3/uL (1.5-5.0); LYMPH % 5.6 % (24.0-44.0); MEAN CORPUSCULAR HEMOGLOBIN 24.2 pg (27.0-33.0); MEAN CORPUSCULAR HGB CONC 28.7 g/dl (32.0-36.5); MEAN CORPUSCULAR VOLUME 84.2 fl (80.0-96.0); MONO # 0.2 10^3/uL (0.0-0.8); MONO % 6.4 % (2.0-8.0); NEUTROPHILS # 3.3 10^3/uL (1.5-8.5); NEUTROPHILS % 86.9 % (36.0-66.0); RED BLOOD COUNT 4.18 10^6/uL (4.30-6.10); WHITE BLOOD COUNT 3.7 10^3/uL (4.0-10.0)
[2021-11-25 06:16] LABS: PLATELET COUNT, AUTOMATED 55 10^3/uL (150-450)
[2021-11-25 06:41] LABS: BLOOD UREA NITROGEN 24 MG/DL (7-18); CALCIUM LEVEL 7.7 MG/DL (8.5-10.1); CARBON DIOXIDE LEVEL 34 MEQ/L (21-32); CHLORIDE LEVEL 109 MEQ/L (98-107); CREATININE FOR GFR 0.73 MG/DL (0.70-1.30); GLOMERULAR FILTRATION RATE > 60.0 (>56); GLUCOSE, FASTING 112 MG/DL (70-100); POTASSIUM SERUM 4.6 MEQ/L (3.5-5.1); SODIUM LEVEL 142 MEQ/L (136-145)
[2021-11-25] MEDS: dexameTHASONE 4 MG/ML 1ML VIAL (J1100 PER 1MG) IV SCH (09:30)
[2021-11-25 12:47] LABS: ALBUMIN 2.4 GM/DL (3.2-5.2); ALT/SGPT 26 U/L (12-78); BILIRUBIN,DIRECT 0.2 MG/DL (0.0-0.2); BILIRUBIN,TOTAL 0.3 MG/DL (0.2-1.0); NT-PRO BNP 7229 PG/ML (<125); TOTAL PROTEIN 5.7 GM/DL (6.4-8.2)
[2021-11-25] MEDS ORDERED: VANCOMYCIN HCL 1,000 MG, VIAL MATE ADAPTER 1 EACH in NS 250 ML IV SCH (14:00)
[2021-11-25 14:21] VITALS: BP 150/82
[2021-11-25] MEDS ORDERED: FUROSEMIDE 100MG/10ML VIAL (J1940) IV ONE (15:00)
[2021-11-25] MEDS: LevoFLOXacin IV 750 MG in IV 1 EA IV SCH (17:21)
[2021-11-25 19:36] LABS: MAGNESIUM LEVEL 1.9 MG/DL (1.7-2.2)
[2021-11-25] MEDS: REMDESIVIR 100 MG in NS 250 ML IV SCH (20:09)
[2021-11-25] MEDS: SODIUM CHLORIDE 0.9% INJ 10 ML SYR IV SCH (20:09)
[2021-11-25 20:39] VITALS: BP 152/67
[2021-11-26 04:14] VITALS: BP 143/77
[2021-11-26] MEDS: LEVOTHYROXINE 150MCG TABLET (0.15MG) PO SCH (05:02)
[2021-11-26] MEDS: BENZONATATE 100MG CAPSULE PO PRN (05:03)
[2021-11-26 05:19] LABS: HEMATOCRIT 37.7 % (42.0-52.0); HEMOGLOBIN 11.2 g/dl (13.5-17.5); LYMPH # 0.5 10^3/uL (1.5-5.0); LYMPH % 9.5 % (24.0-44.0); MEAN CORPUSCULAR HEMOGLOBIN 24.3 pg (27.0-33.0); MEAN CORPUSCULAR HGB CONC 29.7 g/dl (32.0-36.5); MONO # 0.4 10^3/uL (0.0-0.8); MONO % 7.6 % (2.0-8.0); NEUTROPHILS # 4.4 10^3/uL (1.5-8.5); WHITE BLOOD COUNT 5.4 10^3/uL (4.0-10.0)
[2021-11-26 05:28] LABS: PLATELET COUNT, AUTOMATED 64 10^3/uL (150-450)
[2021-11-26 05:33] LABS: INR 0.99; PROTHROMBIN TIME 13.5 SECONDS (12.7-14.5)
[2021-11-26 05:34] LABS: PARTIAL THROMBOPLASTIN TIME 27.9 SECONDS (25.9-37.0)
[2021-11-26 06:09] LABS: ALBUMIN 2.6 GM/DL (3.2-5.2); ALT/SGPT 36 U/L (12-78); BILIRUBIN,DIRECT 0.2 MG/DL (0.0-0.2); BILIRUBIN,TOTAL 0.5 MG/DL (0.2-1.0); BLOOD UREA NITROGEN 25 MG/DL (7-18); CALCIUM LEVEL 7.7 MG/DL (8.5-10.1); CARBON DIOXIDE LEVEL 37 MEQ/L (21-32); CHLORIDE LEVEL 104 MEQ/L (98-107); CREATININE FOR GFR 0.81 MG/DL (0.70-1.30); FERRITIN 104 NG/ML (26-388); GLOMERULAR FILTRATION RATE > 60.0 (>56); GLUCOSE, FASTING 88 MG/DL (70-100); LDH LACTATE DEHYDROGENASE 219 U/L (87-241); NT-PRO BNP 6957 PG/ML (<125); POTASSIUM SERUM 3.8 MEQ/L (3.5-5.1); SODIUM LEVEL 144 MEQ/L (136-145); TOTAL PROTEIN 5.9 GM/DL (6.4-8.2)
[2021-11-26] MEDS: FUROSEMIDE 40MG/4ML VIAL (J1940) IV SCH ×2 (08:51→17:16)
[2021-11-26] MEDS: dexameTHASONE 4 MG/ML 1ML VIAL (J1100 PER 1MG) IV SCH (08:51)
[2021-11-26 12:20] VITALS: BP 152/68
[2021-11-26 13:33] LABS: MAGNESIUM LEVEL 1.7 MG/DL (1.7-2.2)
[2021-11-26] MEDS: LevoFLOXacin IV 750 MG in IV 1 EA IV SCH (17:16)
[2021-11-26 20:00] VITALS: BP 144/83
[2021-11-26] MEDS: REMDESIVIR 100 MG in NS 250 ML IV SCH (21:16)
[2021-11-26] MEDS: SODIUM CHLORIDE 0.9% INJ 10 ML SYR IV SCH (21:17)
[2021-11-27 04:00] VITALS: BP 130/58
[2021-11-27] MEDS: LEVOTHYROXINE 150MCG TABLET (0.15MG) PO SCH (05:19)
[2021-11-27 06:57] LABS: BASO % 0.3 % (0.0-1.0); EOS % 0.3 % (0.0-3.0); HEMATOCRIT 37.2 % (42.0-52.0); LYMPH # 0.5 10^3/uL (1.5-5.0); LYMPH % 12.3 % (24.0-44.0); MEAN CORPUSCULAR HEMOGLOBIN 24.3 pg (27.0-33.0); MEAN CORPUSCULAR HGB CONC 29.6 g/dl (32.0-36.5); MEAN CORPUSCULAR VOLUME 82.1 fl (80.0-96.0); MONO # 0.4 10^3/uL (0.0-0.8); MONO % 8.8 % (2.0-8.0); NEUTROPHILS # 3.1 10^3/uL (1.5-8.5); NEUTROPHILS % 77.5 % (36.0-66.0); RED BLOOD COUNT 4.53 10^6/uL (4.30-6.10)
[2021-11-27 06:59] LABS: PLATELET COUNT, AUTOMATED 52 10^3/uL (150-450)
[2021-11-27 07:15] LABS: BLOOD UREA NITROGEN 28 MG/DL (7-18); CALCIUM LEVEL 7.5 MG/DL (8.5-10.1); CARBON DIOXIDE LEVEL 41 MEQ/L (21-32); CHLORIDE LEVEL 101 MEQ/L (98-107); CREATININE FOR GFR 0.87 MG/DL (0.70-1.30); GLOMERULAR FILTRATION RATE > 60.0 (>56); GLUCOSE, FASTING 91 MG/DL (70-100); POTASSIUM SERUM 3.7 MEQ/L (3.5-5.1); SODIUM LEVEL 144 MEQ/L (136-145)
[2021-11-27] MEDS: FUROSEMIDE 100MG/10ML VIAL (J1940) IV SCH ×2 (08:33→17:00)
[2021-11-27] MEDS: dexameTHASONE 4 MG/ML 1ML VIAL (J1100 PER 1MG) IV SCH ×2 (08:33→21:49)
[2021-11-27] MEDS: LevoFLOXacin 750 MG TABLET PO SCH (08:37)
[2021-11-27 13:34] LABS: ABG BASE EXCESS 11.1 (-2.0-2.0); ABG HCO3 36.4 MEQ/L (22.0-26.0); ABG O2 SATURATION 95.9 % (95.0-99.0); ABG PARTIAL PRESSURE CO2 50.7 mmHg (35.0-45.0); ABG PARTIAL PRESSURE O2 79.9 mmHg (75.0-100.0); ABG STANDARD HCO3 34.8 MEQ/L (22.0-26.0); ABG pH (ARTERIAL) 7.474 UNITS (7.350-7.450)
[2021-11-27 14:00] VITALS: BP 130/60
[2021-11-27 15:00] LABS: MAGNESIUM LEVEL 1.7 MG/DL (1.7-2.2)
[2021-11-27 16:09] LABS: BODY FLUID CULTURE Not indicated. (.); LEGIONELLA ANTIGEN URINE Negative (Negative); ORGANISM ID Not indicated. (.); SPECIMEN SOURCE Urine (.); URINE STREP PNEUMONIAE ANTIGEN Negative (Negative)
[2021-11-27] MEDS: BARICITINIB 2MG TABLET (OLUMIANT) FOR EUA PO SCH (17:00)
[2021-11-27 20:00] VITALS: BP 119/61
[2021-11-28 04:00] VITALS: BP 125/81
[2021-11-28 06:18] LABS: HEMATOCRIT 35.9 % (42.0-52.0); HEMOGLOBIN 10.7 g/dl (13.5-17.5); LYMPH # 0.3 10^3/uL (1.5-5.0); LYMPH % 11.6 % (24.0-44.0); MEAN CORPUSCULAR HEMOGLOBIN 24.4 pg (27.0-33.0); MEAN CORPUSCULAR HGB CONC 29.8 g/dl (32.0-36.5); MEAN CORPUSCULAR VOLUME 81.8 fl (80.0-96.0); MONO # 0.1 10^3/uL (0.0-0.8); MONO % 4.3 % (2.0-8.0); NEUTROPHILS # 2.1 10^3/uL (1.5-8.5); NEUTROPHILS % 82.9 % (36.0-66.0); RED BLOOD COUNT 4.39 10^6/uL (4.30-6.10); WHITE BLOOD COUNT 2.6 10^3/uL (4.0-10.0)
[2021-11-28 06:38] LABS: INR 1.05; PROTHROMBIN TIME 14.1 SECONDS (12.7-14.5)
[2021-11-28 06:39] LABS: PARTIAL THROMBOPLASTIN TIME 25.7 SECONDS (25.9-37.0)
[2021-11-28 06:40] LABS: ALBUMIN 2.5 GM/DL (3.2-5.2); ALT/SGPT 36 U/L (12-78); BILIRUBIN,DIRECT 0.2 MG/DL (0.0-0.2); BILIRUBIN,TOTAL 0.5 MG/DL (0.2-1.0); BLOOD UREA NITROGEN 30 MG/DL (7-18); CALCIUM LEVEL 7.3 MG/DL (8.5-10.1); CARBON DIOXIDE LEVEL 41 MEQ/L (21-32); CHLORIDE LEVEL 99 MEQ/L (98-107); CREATININE FOR GFR 0.86 MG/DL (0.70-1.30); FERRITIN 83 NG/ML (26-388); GLOMERULAR FILTRATION RATE > 60.0 (>56); GLUCOSE, FASTING 117 MG/DL (70-100); LDH LACTATE DEHYDROGENASE 215 U/L (87-241); NT-PRO BNP 892 PG/ML (<125); SODIUM LEVEL 145 MEQ/L (136-145); TOTAL PROTEIN 5.2 GM/DL (6.4-8.2)
[2021-11-28] MEDS: LevoFLOXacin 750 MG TABLET PO SCH (06:50)
[2021-11-28] MEDS: LEVOTHYROXINE 150MCG TABLET (0.15MG) PO SCH (06:50)
[2021-11-28 06:55] LABS: PLATELET COUNT, AUTOMATED 41 10^3/uL (150-450)
[2021-11-28] MEDS: SODIUM CHLORIDE 0.9% INJ 10 ML SYR IV PRN ×2 (06:55→20:31)
[2021-11-28] MEDS: SODIUM CHLORIDE 0.9% INJ 10 ML SYR IV SCH (09:10)
[2021-11-28] MEDS: FUROSEMIDE 100MG/10ML VIAL (J1940) IV SCH ×2 (09:11→17:10)
[2021-11-28] MEDS: BARICITINIB 2MG TABLET (OLUMIANT) FOR EUA PO SCH (09:11)
[2021-11-28] MEDS: dexameTHASONE 4 MG/ML 1ML VIAL (J1100 PER 1MG) IV SCH ×2 (09:11→20:30)
[2021-11-28 14:00] VITALS: BP 126/66
[2021-11-28 20:00] VITALS: BP 120/67
[2021-11-28] MEDS: guaiFENesin DM LIQ 10ML UD PO PRN (20:30)
[2021-11-28] MEDS: BENZONATATE 100MG CAPSULE PO PRN (20:30)
[2021-11-29 04:00] VITALS: BP 132/75
[2021-11-29] MEDS: SODIUM CHLORIDE 0.9% INJ 10 ML SYR IV PRN (05:56)
[2021-11-29] MEDS: LEVOTHYROXINE 150MCG TABLET (0.15MG) PO SCH (05:56)
[2021-11-29 05:59] LABS: HEMATOCRIT 34.5 % (42.0-52.0); HEMOGLOBIN 10.3 g/dl (13.5-17.5); LYMPH # 0.3 10^3/uL (1.5-5.0); LYMPH % 9.3 % (24.0-44.0); MEAN CORPUSCULAR HGB CONC 29.9 g/dl (32.0-36.5); MEAN CORPUSCULAR VOLUME 80.4 fl (80.0-96.0); MONO # 0.1 10^3/uL (0.0-0.8); MONO % 4.5 % (2.0-8.0); NEUTROPHILS # 2.7 10^3/uL (1.5-8.5); NEUTROPHILS % 85.2 % (36.0-66.0); PLATELET COUNT, AUTOMATED 55 10^3/uL (150-450); RED BLOOD COUNT 4.29 10^6/uL (4.30-6.10); WHITE BLOOD COUNT 3.1 10^3/uL (4.0-10.0)
[2021-11-29 07:26] LABS: ALBUMIN 2.4 GM/DL (3.2-5.2); ALT/SGPT 30 U/L (12-78); BILIRUBIN,TOTAL 0.5 MG/DL (0.2-1.0); BLOOD UREA NITROGEN 32 MG/DL (7-18); CALCIUM LEVEL 7.5 MG/DL (8.5-10.1); CARBON DIOXIDE LEVEL 42 MEQ/L (21-32); CHLORIDE LEVEL 95 MEQ/L (98-107); CREATININE FOR GFR 0.83 MG/DL (0.70-1.30); GLOMERULAR FILTRATION RATE > 60.0 (>56); GLUCOSE, FASTING 113 MG/DL (70-100); PHOSPHORUS LEVEL 4.2 MG/DL (2.5-4.9); POTASSIUM SERUM 3.7 MEQ/L (3.5-5.1); SODIUM LEVEL 142 MEQ/L (136-145); TOTAL PROTEIN 5.1 GM/DL (6.4-8.2)
[2021-11-29] MEDS: dexameTHASONE 4 MG/ML 1ML VIAL (J1100 PER 1MG) IV SCH ×2 (08:40→20:00)
[2021-11-29] MEDS: BARICITINIB 2MG TABLET (OLUMIANT) FOR EUA PO SCH (08:40)
[2021-11-29] MEDS: SODIUM CHLORIDE 0.9% INJ 10 ML SYR IV SCH (08:41)
[2021-11-29 14:00] VITALS: BP 137/69
[2021-11-29 17:19] LABS: MAGNESIUM LEVEL 1.8 MG/DL (1.7-2.2)
[2021-11-29] MEDS: BENZONATATE 100MG CAPSULE PO PRN (20:00)
[2021-11-29 20:07] VITALS: BP 128/64
[2021-11-30 04:00] VITALS: BP 142/60
[2021-11-30] MEDS: LEVOTHYROXINE 150MCG TABLET (0.15MG) PO SCH (05:26)
[2021-11-30] MEDS: SODIUM CHLORIDE 0.9% INJ 10 ML SYR IV PRN (05:27)
[2021-11-30 06:02] LABS: HEMATOCRIT 36.1 % (42.0-52.0); HEMOGLOBIN 10.7 g/dl (13.5-17.5); LYMPH # 0.2 10^3/uL (1.5-5.0); MEAN CORPUSCULAR HEMOGLOBIN 23.9 pg (27.0-33.0); MEAN CORPUSCULAR HGB CONC 29.6 g/dl (32.0-36.5); MEAN CORPUSCULAR VOLUME 80.8 fl (80.0-96.0); MONO # 0.2 10^3/uL (0.0-0.8); NEUTROPHILS # 3.2 10^3/uL (1.5-8.5); NEUTROPHILS % 86.6 % (36.0-66.0); RED BLOOD COUNT 4.47 10^6/uL (4.30-6.10); WHITE BLOOD COUNT 3.7 10^3/uL (4.0-10.0)
[2021-11-30 06:09] LABS: PLATELET COUNT, AUTOMATED 65 10^3/uL (150-450)
[2021-11-30 06:41] LABS: BLOOD UREA NITROGEN 29 MG/DL (7-18); CALCIUM LEVEL 7.4 MG/DL (8.5-10.1); CARBON DIOXIDE LEVEL 40 MEQ/L (21-32); CHLORIDE LEVEL 99 MEQ/L (98-107); CREATININE FOR GFR 0.73 MG/DL (0.70-1.30); GLOMERULAR FILTRATION RATE > 60.0 (>56); GLUCOSE, FASTING 105 MG/DL (70-100); SODIUM LEVEL 145 MEQ/L (136-145)
[2021-11-30] MEDS: dexameTHASONE 4 MG/ML 1ML VIAL (J1100 PER 1MG) IV SCH ×2 (08:28→20:15)
[2021-11-30] MEDS: BARICITINIB 2MG TABLET (OLUMIANT) FOR EUA PO SCH (08:29)
[2021-11-30] MEDS: SODIUM CHLORIDE 0.9% INJ 10 ML SYR IV SCH (08:30)
[2021-11-30 14:00] VITALS: BP_SYST 131; BP_SYST 135; BP_DIAS 68; BP_DIAS 76
[2021-11-30] MEDS ORDERED: ROMIPLOSTIM 250MCG VIAL (NPLATE) (J2796 PER 10MCG) (FOR ONCOLOGY) SC ONE (16:00)
[2021-11-30 20:00] VITALS: BP 132/68
[2021-11-30] MEDS: BENZONATATE 100MG CAPSULE PO PRN (22:22)
[2021-12-01] MEDS: LEVOTHYROXINE 150MCG TABLET (0.15MG) PO SCH (05:22)
[2021-12-01] MEDS ORDERED: predniSONE 20 MG TAB PO SCH (09:00)
[2021-12-01] MEDS: BARICITINIB 2MG TABLET (OLUMIANT) FOR EUA PO SCH (09:09)
[2021-12-01] MEDS: dexameTHASONE 4 MG/ML 1ML VIAL (J1100 PER 1MG) IV SCH ×2 (09:10→20:43)
[2021-12-01] MEDS: SODIUM CHLORIDE 0.9% INJ 10 ML SYR IV SCH (09:10)
[2021-12-01 19:19] VITALS: BP 138/67
[2021-12-01] MEDS: BENZONATATE 100MG CAPSULE PO PRN (20:32)
[2021-12-01] MEDS: SODIUM CHLORIDE 0.9% INJ 10 ML SYR IV PRN (20:36)
[2021-12-02 04:00] VITALS: BP 117/58
[2021-12-02] MEDS: LEVOTHYROXINE 150MCG TABLET (0.15MG) PO SCH (05:31)
[2021-12-02] MEDS: SODIUM CHLORIDE 0.9% INJ 10 ML SYR IV PRN (05:32)
[2021-12-02 06:12] LABS: HEMATOCRIT 34.6 % (42.0-52.0); HEMOGLOBIN 10.2 g/dl (13.5-17.5); MEAN CORPUSCULAR HEMOGLOBIN 24.4 pg (27.0-33.0); MEAN CORPUSCULAR HGB CONC 29.5 g/dl (32.0-36.5); MEAN CORPUSCULAR VOLUME 82.8 fl (80.0-96.0); RED BLOOD COUNT 4.18 10^6/uL (4.30-6.10); WHITE BLOOD COUNT 3.8 10^3/uL (4.0-10.0)
[2021-12-02 06:15] LABS: PLATELET COUNT, AUTOMATED 77 10^3/uL (150-450)
[2021-12-02 06:30] LABS: BLOOD UREA NITROGEN 30 MG/DL (7-18); CALCIUM LEVEL 7.6 MG/DL (8.5-10.1); CARBON DIOXIDE LEVEL 39 MEQ/L (21-32); CHLORIDE LEVEL 101 MEQ/L (98-107); CREATININE FOR GFR 0.64 MG/DL (0.70-1.30); GLOMERULAR FILTRATION RATE > 60.0 (>56); GLUCOSE, FASTING 100 MG/DL (70-100); MAGNESIUM LEVEL 2.2 MG/DL (1.8-2.4); PHOSPHORUS LEVEL 3.5 MG/DL (2.5-4.9); POTASSIUM SERUM 4.3 MEQ/L (3.5-5.1); SODIUM LEVEL 144 MEQ/L (136-145)
[2021-12-02] MEDS: BARICITINIB 2MG TABLET (OLUMIANT) FOR EUA PO SCH (09:16)
[2021-12-02] MEDS: dexameTHASONE 4 MG/ML 1ML VIAL (J1100 PER 1MG) IV SCH ×2 (09:17→20:29)
[2021-12-02] MEDS: SODIUM CHLORIDE 0.9% INJ 10 ML SYR IV SCH (09:18)
[2021-12-02 14:00] VITALS: BP 139/71
[2021-12-02 19:34] VITALS: BP 135/65
[2021-12-02] MEDS: BENZONATATE 100MG CAPSULE PO PRN (20:39)
[2021-12-03 04:12] VITALS: BP 135/74
[2021-12-03] MEDS: LEVOTHYROXINE 150MCG TABLET (0.15MG) PO SCH (06:35)
[2021-12-03] MEDS: BARICITINIB 2MG TABLET (OLUMIANT) FOR EUA PO SCH (08:28)
[2021-12-03] MEDS: SODIUM CHLORIDE 0.9% INJ 10 ML SYR IV SCH (08:29)
[2021-12-03] MEDS ORDERED: predniSONE 10 MG TAB PO SCH (09:00)
[2021-12-03] MEDS ORDERED: PRED10TA2 PO (11:00)
[2021-12-03] MEDS: SODIUM CHLORIDE 0.9% INJ 10 ML SYR IV PRN (13:35)
[2021-12-03] MEDS ORDERED: BENZ200C70 PO (17:33)
== END 2021-12-03 14:06 | disposition home health service (06) | DRG 178 ==
LOC: M ED 13:49 → M ED INP 16:45 → ENRESERV 11-23 10:37 → M ICU 11-23 11:06 → M 4MAIN 11-24 18:37
PROVIDERS: ADMIT Internal Medicine; ATTEND Internal Medicine
PROC: XW033E5 Introduction of Remdesivir Anti-infective into Peripheral Vein, Percutaneous Approach, New Technology Group 5 (ICD-10-PCS; 2021-11-22)
PROC: 3E0333Z Introduction of Anti-inflammatory into Peripheral Vein, Percutaneous Approach (ICD-10-PCS; principal; 2021-11-23)
DX: U07.1 COVID-19 (principal); D83.9 Common variable immunodeficiency, unspecified; J96.11 Chronic respiratory failure with hypoxia; D69.3 Immune thrombocytopenic purpura; J84.10 Pulmonary fibrosis, unspecified; E03.9 Hypothyroidism, unspecified; D86.9 Sarcoidosis, unspecified; Z99.81 Dependence on supplemental oxygen; Z79.899 Other long term (current) drug therapy; Z88.0 Allergy status to penicillin; Z88.2 Allergy status to sulfonamides; I50.9 Heart failure, unspecified

== ENCOUNTER → 2021-12-26 | Outpatient (REF) | payer OTHER ==
[~2021-12-26] MED LIST changes: +ACET-897 PO; +BENZ200C70 PO; +PRED10TA2 PO; +VITA-158 PO; +prednisone PO
[2021-12-26 11:38] LABS: BLOOD UREA NITROGEN 20 MG/DL (7-18); CALCIUM LEVEL 8.2 MG/DL (8.5-10.1); CARBON DIOXIDE LEVEL 39 MEQ/L (21-32); CHLORIDE LEVEL 97 MEQ/L (98-107); CREATININE FOR GFR 0.78 MG/DL (0.70-1.30); GLOMERULAR FILTRATION RATE > 60.0 (>56); GLUCOSE, FASTING 89 MG/DL (70-100); POTASSIUM SERUM 3.7 MEQ/L (3.5-5.1); SODIUM LEVEL 140 MEQ/L (136-145)
== END ==
LOC: M LAB REF 09:44
PROVIDERS: ATTEND Family Medicine
DX: I50.32 Chronic diastolic (congestive) heart failure (principal)

== ENCOUNTER 2021-12-28 16:15 | Inpatient (IN) | payer OTHER ==
[~2021-12-28] VITALS: Ht 182.9 cm; Wt 100.1 kg
[2021-12-28] MEDS ORDERED: DOXY100C3 PO (16:27)
[2021-12-28] MEDS ORDERED: FURO40TA2 PO (16:27)
[2021-12-28] MEDS ORDERED: AZIT500T5 PO (16:27)
[2021-12-28 18:21] LABS: BASO % 0.2 % (0.0-1.0); EOS % 0.5 % (0.0-3.0); HEMATOCRIT 35.5 % (42.0-52.0); HEMOGLOBIN 10.8 g/dl (13.5-17.5); LYMPH # 0.7 10^3/uL (1.5-5.0); MEAN CORPUSCULAR HEMOGLOBIN 24.8 pg (27.0-33.0); MEAN CORPUSCULAR HGB CONC 30.4 g/dl (32.0-36.5); MEAN CORPUSCULAR VOLUME 81.6 fl (80.0-96.0); MONO # 0.6 10^3/uL (0.0-0.8); MONO % 10.2 % (2.0-8.0); NEUTROPHILS # 4.5 10^3/uL (1.5-8.5); NEUTROPHILS % 76.6 % (36.0-66.0); PLATELET COUNT, AUTOMATED 157 10^3/uL (150-450); RED BLOOD COUNT 4.35 10^6/uL (4.30-6.10); WHITE BLOOD COUNT 5.9 10^3/uL (4.0-10.0)
[2021-12-28 18:46] LABS: INR 0.93; PROTHROMBIN TIME 12.9 SECONDS (12.7-14.5)
[2021-12-28 18:47] LABS: ALBUMIN 2.6 GM/DL (3.2-5.2); ALT/SGPT 27 U/L (12-78); BILIRUBIN,DIRECT 0.2 MG/DL (0.0-0.2); BILIRUBIN,TOTAL 0.6 MG/DL (0.2-1.0); BLOOD UREA NITROGEN 16 MG/DL (7-18); CALCIUM LEVEL 8.6 MG/DL (8.5-10.1); CARBON DIOXIDE LEVEL 42 MEQ/L (21-32); CHLORIDE LEVEL 99 MEQ/L (98-107); CREATININE FOR GFR 0.76 MG/DL (0.70-1.30); GLOMERULAR FILTRATION RATE > 60.0 (>56); GLUCOSE, FASTING 91 MG/DL (70-100); NT-PRO BNP 424 PG/ML (<125); POTASSIUM SERUM 4.1 MEQ/L (3.5-5.1); SODIUM LEVEL 142 MEQ/L (136-145); TOTAL PROTEIN 5.6 GM/DL (6.4-8.2)
[2021-12-28] MEDS ORDERED: FUROSEMIDE 40MG/4ML VIAL (J1940) IV ONE (18:55)
[2021-12-28 19:20] LABS: RSV AMPLIFICATION NEGATIVE (NEGATIVE)
[2021-12-28] MEDS ORDERED: NPLA500I SC (19:57)
[2021-12-28] MEDS ORDERED: [UNRECOGNIZED DRUG - CODE] IV (19:57)
[2021-12-28] MEDS ORDERED: PRED10TA2 PO (19:59)
[2021-12-28] MEDS ORDERED: HOME MED LIST COMPLETE! XX SCH (20:00)
[2021-12-29] MEDS ORDERED: MOM 30ML SUSPENSION UDC PO PRN (00:15)
[2021-12-29] MEDS ORDERED: ACETAMINOPHEN TAB 650MG DOSE (2X325MG) PO PRN (00:15)
[2021-12-29 00:52] LABS: FREE T4 1.05 NG/DL (0.76-1.46)
[2021-12-29] MEDS: HEPARIN SOD (PORCINE) 5000UNITS/ML 1ML VIAL/SYRINGE SQ SCH ×3 (06:00→22:02)
[2021-12-29] MEDS: LEVOTHYROXINE 150MCG TABLET (0.15MG) PO SCH (06:00)
[2021-12-29 07:28] LABS: HEMATOCRIT 35.6 % (42.0-52.0); HEMOGLOBIN 10.9 g/dl (13.5-17.5); MEAN CORPUSCULAR HEMOGLOBIN 24.9 pg (27.0-33.0); MEAN CORPUSCULAR HGB CONC 30.6 g/dl (32.0-36.5); MEAN CORPUSCULAR VOLUME 81.5 fl (80.0-96.0); PLATELET COUNT, AUTOMATED 172 10^3/uL (150-450); RED BLOOD COUNT 4.37 10^6/uL (4.30-6.10); WHITE BLOOD COUNT 7.3 10^3/uL (4.0-10.0)
[2021-12-29 07:56] LABS: BLOOD UREA NITROGEN 16 MG/DL (7-18); CALCIUM LEVEL 8.2 MG/DL (8.5-10.1); CARBON DIOXIDE LEVEL 37 MEQ/L (21-32); CHLORIDE LEVEL 99 MEQ/L (98-107); CREATININE FOR GFR 0.76 MG/DL (0.70-1.30); GLOMERULAR FILTRATION RATE > 60.0 (>56); GLUCOSE, FASTING 82 MG/DL (70-100); MAGNESIUM LEVEL 2.2 MG/DL (1.8-2.4); POTASSIUM SERUM 3.6 MEQ/L (3.5-5.1); SODIUM LEVEL 140 MEQ/L (136-145)
[2021-12-29] MEDS ORDERED: ROMIPLOSTIM SC SCH (08:00)
[2021-12-29] MEDS: predniSONE 10 MG TAB PO SCH (08:41)
[2021-12-29] MEDS: FUROSEMIDE 40MG/4ML VIAL (J1940) IV SCH ×2 (08:41→17:41)
[2021-12-29] MEDS: ASCORBIC ACID 500 MG TAB PO SCH (08:41)
[2021-12-29] MEDS ORDERED: LEVOTHYROXINE 150MCG TABLET (0.15MG) PO ONE (09:20)
[2021-12-29 12:11] VITALS: BP 121/75
[2021-12-29 14:00] VITALS: BP 128/74
[2021-12-29] MEDS ORDERED: ROMIPLOSTIM 250MCG VIAL (NPLATE) (J2796 PER 10MCG) (FOR ONCOLOGY) SC ONE (17:00)
[2021-12-29 18:48] VITALS: BP 131/75
[2021-12-29 22:00] VITALS: BP 131/76
[2021-12-30 02:00] VITALS: BP 134/70
[2021-12-30 06:00] VITALS: BP 128/77
[2021-12-30 06:29] LABS: HEMATOCRIT 32.2 % (42.0-52.0); MEAN CORPUSCULAR HEMOGLOBIN 25.1 pg (27.0-33.0); MEAN CORPUSCULAR HGB CONC 31.1 g/dl (32.0-36.5); MEAN CORPUSCULAR VOLUME 80.9 fl (80.0-96.0); PLATELET COUNT, AUTOMATED 141 10^3/uL (150-450); RED BLOOD COUNT 3.98 10^6/uL (4.30-6.10)
[2021-12-30 06:49] LABS: BLOOD UREA NITROGEN 14 MG/DL (7-18); CALCIUM LEVEL 7.8 MG/DL (8.5-10.1); CARBON DIOXIDE LEVEL 37 MEQ/L (21-32); CHLORIDE LEVEL 101 MEQ/L (98-107); CREATININE FOR GFR 0.68 MG/DL (0.70-1.30); GLOMERULAR FILTRATION RATE > 60.0 (>56); GLUCOSE, FASTING 76 MG/DL (70-100); POTASSIUM SERUM 3.3 MEQ/L (3.5-5.1); SODIUM LEVEL 141 MEQ/L (136-145)
[2021-12-30] MEDS: LEVOTHYROXINE 150MCG TABLET (0.15MG) PO SCH (07:02)
[2021-12-30] MEDS ORDERED: POTASSIUM CHLORIDE 10MEQ SR TABLET PO ONE (07:40)
[2021-12-30] MEDS: FUROSEMIDE 40MG/4ML VIAL (J1940) IV SCH ×2 (07:56→16:19)
[2021-12-30] MEDS: predniSONE 10 MG TAB PO SCH (07:57)
[2021-12-30] MEDS: HEPARIN SOD (PORCINE) 5000UNITS/ML 1ML VIAL/SYRINGE SQ SCH ×3 (07:57→21:49)
[2021-12-30] MEDS: ASCORBIC ACID 500 MG TAB PO SCH (07:57)
[2021-12-30] MEDS ORDERED: FLUBLOK(EGG FREE)(QUAD)INFLUENZA VACC 0.5ML SYRINGE 18YRS & OLDER IM SCH (09:00)
[2021-12-30 10:00] VITALS: BP 125/76
[2021-12-30 14:00] VITALS: BP 124/76
[2021-12-30 22:00] VITALS: BP 132/59
[2021-12-31 06:00] VITALS: BP 139/84
[2021-12-31] MEDS: LEVOTHYROXINE 150MCG TABLET (0.15MG) PO SCH (06:23)
[2021-12-31] MEDS: HEPARIN SOD (PORCINE) 5000UNITS/ML 1ML VIAL/SYRINGE SQ SCH (06:24)
[2021-12-31 06:44] LABS: HEMATOCRIT 31.3 % (42.0-52.0); HEMOGLOBIN 9.7 g/dl (13.5-17.5); MEAN CORPUSCULAR HEMOGLOBIN 25.5 pg (27.0-33.0); MEAN CORPUSCULAR VOLUME 82.4 fl (80.0-96.0); PLATELET COUNT, AUTOMATED 107 10^3/uL (150-450); WHITE BLOOD COUNT 4.1 10^3/uL (4.0-10.0)
[2021-12-31 07:02] LABS: BLOOD UREA NITROGEN 15 MG/DL (7-18); CALCIUM LEVEL 7.5 MG/DL (8.5-10.1); CARBON DIOXIDE LEVEL 39 MEQ/L (21-32); CHLORIDE LEVEL 100 MEQ/L (98-107); CREATININE FOR GFR 0.77 MG/DL (0.70-1.30); GLOMERULAR FILTRATION RATE > 60.0 (>56); GLUCOSE, FASTING 76 MG/DL (70-100); MAGNESIUM LEVEL 2.1 MG/DL (1.8-2.4); POTASSIUM SERUM 3.3 MEQ/L (3.5-5.1); SODIUM LEVEL 140 MEQ/L (136-145)
[2021-12-31] MEDS ORDERED: POTASSIUM CHLORIDE 10MEQ SR TABLET PO ONE (07:25)
[2021-12-31] MEDS: FUROSEMIDE 40MG/4ML VIAL (J1940) IV SCH ×2 (07:53→17:10)
[2021-12-31] MEDS: ASCORBIC ACID 500 MG TAB PO SCH (07:54)
[2021-12-31] MEDS: predniSONE 10 MG TAB PO SCH (07:54)
[2021-12-31 14:00] VITALS: BP 120/71
[2021-12-31 19:41] LABS: BLOOD UREA NITROGEN 14 MG/DL (7-18); CALCIUM LEVEL 7.3 MG/DL (8.5-10.1); CARBON DIOXIDE LEVEL 36 MEQ/L (21-32); CHLORIDE LEVEL 101 MEQ/L (98-107); CREATININE FOR GFR 0.88 MG/DL (0.70-1.30); GLOMERULAR FILTRATION RATE > 60.0 (>56); GLUCOSE, FASTING 173 MG/DL (70-100); POTASSIUM SERUM 3.8 MEQ/L (3.5-5.1); SODIUM LEVEL 140 MEQ/L (136-145)
[2021-12-31 19:58] VITALS: BP 113/71
[2022-01-01] MEDS: LEVOTHYROXINE 150MCG TABLET (0.15MG) PO SCH (05:04)
[2022-01-01 06:37] LABS: HEMATOCRIT 30.8 % (42.0-52.0); HEMOGLOBIN 9.4 g/dl (13.5-17.5); MEAN CORPUSCULAR HEMOGLOBIN 25.1 pg (27.0-33.0); MEAN CORPUSCULAR HGB CONC 30.5 g/dl (32.0-36.5); MEAN CORPUSCULAR VOLUME 82.1 fl (80.0-96.0); PLATELET COUNT, AUTOMATED 104 10^3/uL (150-450); RED BLOOD COUNT 3.75 10^6/uL (4.30-6.10)
[2022-01-01 07:03] LABS: BLOOD UREA NITROGEN 15 MG/DL (7-18); CALCIUM LEVEL 7.6 MG/DL (8.5-10.1); CARBON DIOXIDE LEVEL 38 MEQ/L (21-32); CHLORIDE LEVEL 102 MEQ/L (98-107); CREATININE FOR GFR 0.63 MG/DL (0.70-1.30); GLOMERULAR FILTRATION RATE > 60.0 (>56); GLUCOSE, FASTING 81 MG/DL (70-100); MAGNESIUM LEVEL 2.1 MG/DL (1.8-2.4); POTASSIUM SERUM 3.5 MEQ/L (3.5-5.1); SODIUM LEVEL 141 MEQ/L (136-145)
[2022-01-01] MEDS ORDERED: POTASSIUM CHLORIDE 10MEQ SR TABLET PO ONE (07:30)
[2022-01-01 07:32] VITALS: BP 117/71
[2022-01-01 08:00] VITALS: BP 117/71
[2022-01-01] MEDS: predniSONE 10 MG TAB PO SCH (09:05)
[2022-01-01] MEDS: FUROSEMIDE 40MG/4ML VIAL (J1940) IV SCH (09:05)
[2022-01-01] MEDS: ASCORBIC ACID 500 MG TAB PO SCH (09:06)
[2022-01-02] MEDS ORDERED: predniSONE 5 MG TAB PO SCH (09:00)
== END 2022-01-01 10:28 | disposition home health service (06) | DRG 292 ==
LOC: M ED 16:15 → M ED INP 22:55 → ENRESERV 12-29 10:33 → M MSPAV 12-29 11:55
PROVIDERS: ADMIT Family Medicine; ATTEND Internal Medicine
DX: I50.811 Acute right heart failure (principal); J96.11 Chronic respiratory failure with hypoxia; D80.1 Nonfamilial hypogammaglobulinemia; D69.3 Immune thrombocytopenic purpura; E03.9 Hypothyroidism, unspecified; Z99.81 Dependence on supplemental oxygen; Z79.899 Other long term (current) drug therapy; Z88.0 Allergy status to penicillin; Z88.2 Allergy status to sulfonamides; Z91.010 Allergy to peanuts; J84.10 Pulmonary fibrosis, unspecified; D86.9 Sarcoidosis, unspecified; G47.33 Obstructive sleep apnea (adult) (pediatric); R91.8 Other nonspecific abnormal finding of lung field

== ENCOUNTER → 2022-01-18 | Outpatient (REF) | payer OTHER ==
[~2022-01-18] MED LIST changes: +DOXY100C3 PO; +FURO40TA2 PO; +NPLA500I SC; +[UNRECOGNIZED DRUG - CODE] IV
[2022-01-18 14:55] LABS: ALBUMIN 2.7 GM/DL (3.2-5.2); ALT/SGPT 22 U/L (12-78); BILIRUBIN,TOTAL 0.5 MG/DL (0.2-1.0); BLOOD UREA NITROGEN 11 MG/DL (7-18); CALCIUM LEVEL 8.6 MG/DL (8.5-10.1); CARBON DIOXIDE LEVEL 39 MEQ/L (21-32); CHLORIDE LEVEL 100 MEQ/L (98-107); CREATININE FOR GFR 0.72 MG/DL (0.70-1.30); FREE T4 1.02 NG/DL (0.76-1.46); GLOMERULAR FILTRATION RATE > 60.0 (>56); GLUCOSE, FASTING 115 MG/DL (70-100); POTASSIUM SERUM 3.8 MEQ/L (3.5-5.1); SODIUM LEVEL 141 MEQ/L (136-145); TOTAL PROTEIN 5.6 GM/DL (6.4-8.2)
[2022-01-18 16:20] LABS: FREE T3 1.7 PG/ML (2.2-4.0)
== END ==
LOC: M LAB REF 13:47
PROVIDERS: ATTEND Family Medicine
DX: E03.9 Hypothyroidism, unspecified (principal); I50.32 Chronic diastolic (congestive) heart failure

== ENCOUNTER → 2022-03-30 | Outpatient (REF) | payer OTHER ==
[~2022-03-30] MED LIST changes: +CHRO1CAP3 PO; +SPIR-10 PO
[2022-03-30 15:20] LABS: ALBUMIN 2.9 GM/DL (3.2-5.2); ALT/SGPT 20 U/L (12-78); BILIRUBIN,TOTAL 0.7 MG/DL (0.2-1.0); BLOOD UREA NITROGEN 23 MG/DL (7-18); CALCIUM LEVEL 9.3 MG/DL (8.5-10.1); CARBON DIOXIDE LEVEL 31 MEQ/L (21-32); CHLORIDE LEVEL 99 MEQ/L (98-107); CREATININE FOR GFR 1.03 MG/DL (0.70-1.30); GLOMERULAR FILTRATION RATE > 60.0 (>56); GLUCOSE, FASTING 101 MG/DL (70-100); POTASSIUM SERUM 4.3 MEQ/L (3.5-5.1); SODIUM LEVEL 135 MEQ/L (136-145); TOTAL PROTEIN 7.3 GM/DL (6.4-8.2)
== END ==
LOC: M LAB REF 14:30
PROVIDERS: ATTEND Family Medicine
DX: I50.32 Chronic diastolic (congestive) heart failure (principal)

== ENCOUNTER 2022-05-17 09:27 | Inpatient (IN) | payer OTHER ==
[~2022-05-17] VITALS: Ht 182.9 cm; Wt 134.8 kg
[2022-05-17] VITALS (16 sets, daily range): BP systolic 108–138; BP diastolic 56–71
[~2022-05-17 09:27] MED LIST changes: +AZIT500T5
[2022-05-17 10:35] LABS: BASO % 0.4 % (0.0-1.0); EOS % 0.7 % (0.0-3.0); HEMATOCRIT 38.5 % (42.0-52.0); HEMOGLOBIN 10.9 g/dl (13.5-17.5); LYMPH # 0.5 10^3/uL (1.5-5.0); LYMPH % 9.4 % (24.0-44.0); MEAN CORPUSCULAR HEMOGLOBIN 23.6 pg (27.0-33.0); MEAN CORPUSCULAR HGB CONC 28.3 g/dl (32.0-36.5); MEAN CORPUSCULAR VOLUME 83.3 fl (80.0-96.0); MONO # 0.8 10^3/uL (0.0-0.8); MONO % 14.5 % (2.0-8.0); NEUTROPHILS # 4.1 10^3/uL (1.5-8.5); NEUTROPHILS % 74.1 % (36.0-66.0); PLATELET COUNT, AUTOMATED 147 10^3/uL (150-450); RED BLOOD COUNT 4.62 10^6/uL (4.30-6.10); WHITE BLOOD COUNT 5.5 10^3/uL (4.0-10.0)
[2022-05-17 10:38] LABS: VENOUS BASE EXCESS 17.2 (-2.0-2.0); VENOUS HCO3 47.6 MEQ/L (23.0-27.0); VENOUS O2 SATURATION 94.4 % (60.0-80.0); VENOUS PARTIAL PRESSURE CO2 96.1 mmHg (38.0-50.0); VENOUS PARTIAL PRESSURE O2 78.2 mmHg (30.0-50.0); VENOUS PH 7.313 UNITS (7.330-7.430); VENOUS STANDARD HCO3 41.1 MEQ/L; VENOUS TOTAL CO2 50.6 MEQ/L (24.0-28.0)
[2022-05-17] MEDS ORDERED: cefTRIAXone SOD 2 GM in D5W MINI-BAG PLUS 50 ML IV ONE ×5 (10:45→11:35)
[2022-05-17 11:01] LABS: ABG BASE EXCESS 16.6 (-2.0-2.0); ABG HCO3 47.4 MEQ/L (22.0-26.0); ABG PARTIAL PRESSURE O2 85.1 mmHg (75.0-100.0); ABG STANDARD HCO3 40.5 MEQ/L (22.0-26.0); ABG TOTAL CO2 50.5 MEQ/L (22.0-29.0)
[2022-05-17 11:05] LABS: ABG PARTIAL PRESSURE CO2 100.8 mmHg (35.0-45.0)
[2022-05-17 11:12] LABS: CK-MB VALUE MASS < 1.0 NG/ML (<3.6); CPK CREATINE PHOSPHOKINASE 12 U/L (39-308); MB/CK RELATIVE INDEX 8.33 (< OR =4)
[2022-05-17 11:20] LABS: ALBUMIN 2.9 GM/DL (3.2-5.2); ALT/SGPT 18 U/L (12-78); BILIRUBIN,DIRECT 0.5 MG/DL (0.0-0.2); BILIRUBIN,TOTAL 1.1 MG/DL (0.2-1.0); BLOOD UREA NITROGEN 20 MG/DL (7-18); CALCIUM LEVEL 9.9 MG/DL (8.5-10.1); CARBON DIOXIDE LEVEL 44 MEQ/L (21-32); CHLORIDE LEVEL 88 MEQ/L (98-107); CREATININE FOR GFR 0.79 MG/DL (0.70-1.30); GLOMERULAR FILTRATION RATE > 60.0 (>56); GLUCOSE, FASTING 96 MG/DL (70-100); NT-PRO BNP 1812 PG/ML (<125); POTASSIUM SERUM 3.4 MEQ/L (3.5-5.1); SODIUM LEVEL 138 MEQ/L (136-145)
[2022-05-17] MEDS ORDERED: methylPREDNISolone 125MG 2ML VIAL IV ONE (11:35)
[2022-05-17] MEDS ORDERED: DOXYCYCLINE HYCLATE 100 MG in D5W MINI-BAG PLUS 100 ML IV ONE (11:35)
[2022-05-17] MEDS ORDERED: AZIT-12 PO (12:23)
[2022-05-17] MEDS ORDERED: TERB250T91 PO (12:23)
[2022-05-17] MEDS ORDERED: PRED10TA2 PO (12:23)
[2022-05-17] MEDS ORDERED: HOME MED LIST COMPLETE! XX SCH (12:25)
[2022-05-17] MEDS ORDERED: NS 1,000 ML IV ONE (12:45)
[2022-05-17] MEDS ORDERED: NS 2,800 ML in IV 1 EA IV ONE (12:55)
[2022-05-17 14:02] LABS: ABG BASE EXCESS 14.1 (-2.0-2.0); ABG HCO3 44.6 MEQ/L (22.0-26.0); ABG O2 SATURATION 92.8 % (95.0-99.0); ABG PARTIAL PRESSURE O2 72.1 mmHg (75.0-100.0); ABG STANDARD HCO3 37.8 MEQ/L (22.0-26.0); ABG TOTAL CO2 47.6 MEQ/L (22.0-29.0)
[2022-05-17 14:04] LABS: ABG PARTIAL PRESSURE CO2 97.1 mmHg (35.0-45.0)
[2022-05-17] MEDS: HEPARIN SOD (PORCINE) 5000UNITS/ML 1ML VIAL/SYRINGE SC SCH ×2 (15:33→22:32)
[2022-05-17 17:22] LABS: ABG BASE EXCESS 11.9 (-2.0-2.0); ABG HCO3 40.9 MEQ/L (22.0-26.0); ABG O2 SATURATION 95.4 % (95.0-99.0); ABG PARTIAL PRESSURE CO2 81.5 mmHg (35.0-45.0); ABG PARTIAL PRESSURE O2 81.2 mmHg (75.0-100.0); ABG STANDARD HCO3 35.6 MEQ/L (22.0-26.0); ABG TOTAL CO2 43.4 MEQ/L (22.0-29.0); ABG pH (ARTERIAL) 7.318 UNITS (7.350-7.450)
[2022-05-17] MEDS: NS 1,000 ML IV SCH (18:27)
[2022-05-17] MEDS ORDERED: METOPROLOL 5 MG/5 ML VIAL IV STA (20:26)
[2022-05-17] MEDS: CHLORHEXIDINE GLUCONATE 0.12 % 15ML UDC (PERIDEX ORAL RINSE) MT SCH (20:58)
[2022-05-17 21:52] LABS: ALBUMIN 2.6 GM/DL (3.2-5.2); ALT/SGPT 13 U/L (12-78); BILIRUBIN,TOTAL 0.8 MG/DL (0.2-1.0); BLOOD UREA NITROGEN 18 MG/DL (7-18); CALCIUM LEVEL 8.7 MG/DL (8.5-10.1); CARBON DIOXIDE LEVEL 42 MEQ/L (21-32); CHLORIDE LEVEL 95 MEQ/L (98-107); CREATININE FOR GFR 0.73 MG/DL (0.70-1.30); GLOMERULAR FILTRATION RATE > 60.0 (>56); GLUCOSE, FASTING 119 MG/DL (70-100); MAGNESIUM LEVEL 1.9 MG/DL (1.8-2.4); POTASSIUM SERUM 4.1 MEQ/L (3.5-5.1); SODIUM LEVEL 143 MEQ/L (136-145); TOTAL PROTEIN 5.5 GM/DL (6.4-8.2)
[2022-05-18] VITALS (19 sets, daily range): BP systolic 95–134; BP diastolic 50–67; O2SAT 93–96
[2022-05-18] MEDS ORDERED: DOXYCYCLINE HYCLATE 100 MG in D5W MINI-BAG PLUS 100 ML IV SCH ×2
[2022-05-18] MEDS: NS 1,000 ML IV SCH ×2 (02:05→06:21)
[2022-05-18] MEDS: METOPROLOL 5 MG/5 ML VIAL IV SCH ×2 (03:00→09:00)
[2022-05-18 05:35] LABS: HEMATOCRIT 31.9 % (42.0-52.0); LYMPH # 0.3 10^3/uL (1.5-5.0); LYMPH % 9.2 % (24.0-44.0); MEAN CORPUSCULAR HEMOGLOBIN 24.2 pg (27.0-33.0); MEAN CORPUSCULAR HGB CONC 28.2 g/dl (32.0-36.5); MEAN CORPUSCULAR VOLUME 85.8 fl (80.0-96.0); MONO # 0.2 10^3/uL (0.0-0.8); MONO % 5.6 % (2.0-8.0); NEUTROPHILS % 84.1 % (36.0-66.0); PLATELET COUNT, AUTOMATED 114 10^3/uL (150-450); RED BLOOD COUNT 3.72 10^6/uL (4.30-6.10); WHITE BLOOD COUNT 3.6 10^3/uL (4.0-10.0)
[2022-05-18] MEDS: HEPARIN SOD (PORCINE) 5000UNITS/ML 1ML VIAL/SYRINGE SC SCH ×3 (05:57→22:44)
[2022-05-18 06:09] LABS: ABG BASE EXCESS 10.5 (-2.0-2.0); ABG HCO3 37.8 MEQ/L (22.0-26.0); ABG PARTIAL PRESSURE CO2 67.9 mmHg (35.0-45.0); ABG PARTIAL PRESSURE O2 104.9 mmHg (75.0-100.0); ABG STANDARD HCO3 34.2 MEQ/L (22.0-26.0); ABG TOTAL CO2 39.8 MEQ/L (22.0-29.0); ABG pH (ARTERIAL) 7.363 UNITS (7.350-7.450)
[2022-05-18 06:14] LABS: ALT/SGPT 12 U/L (12-78); BLOOD UREA NITROGEN 21 MG/DL (7-18); CARBON DIOXIDE LEVEL 45 MEQ/L (21-32); CHLORIDE LEVEL 94 MEQ/L (98-107); CREATININE FOR GFR 0.82 MG/DL (0.70-1.30); GLOMERULAR FILTRATION RATE > 60.0 (>56); GLUCOSE, FASTING 119 MG/DL (70-100); PHOSPHORUS LEVEL 3.1 MG/DL (2.5-4.9); POTASSIUM SERUM 4.1 MEQ/L (3.5-5.1); SODIUM LEVEL 143 MEQ/L (136-145)
[2022-05-18 06:15] LABS: ALBUMIN 2.4 GM/DL (3.2-5.2); BILIRUBIN,TOTAL 0.7 MG/DL (0.2-1.0); TOTAL PROTEIN 5.5 GM/DL (6.4-8.2)
[2022-05-18] MEDS ORDERED: NS 500 ML IV ONE (06:15)
[2022-05-18] MEDS: IPRATROPIUM 0.5MG/ALBUTEROL 2.5MG INH SOL UD 3ML (DUONEB) NEB SCH ×4 (08:47→19:37)
[2022-05-18] MEDS: CHLORHEXIDINE GLUCONATE 0.12 % 15ML UDC (PERIDEX ORAL RINSE) MT SCH ×2 (09:00→20:12)
[2022-05-18] MEDS: MIRALAX *UNIT DOSE* 17GM PACKET PO SCH (09:15)
[2022-05-18] MEDS: SENNA 8.6 MG TAB (SENOKOT) PO SCH (09:15)
[2022-05-18 09:24] LABS: ABG BASE EXCESS 12.7 (-2.0-2.0); ABG HCO3 40.7 MEQ/L (22.0-26.0); ABG O2 SATURATION 94.2 % (95.0-99.0); ABG STANDARD HCO3 36.3 MEQ/L (22.0-26.0); ABG pH (ARTERIAL) 7.355 UNITS (7.350-7.450)
[2022-05-18 09:30] LABS: ABG PARTIAL PRESSURE CO2 74.5 mmHg (35.0-45.0)
[2022-05-18] MEDS ORDERED: cefTRIAXone SOD 1GM VIAL (J0696 PER 250MG) IM SCH (10:35)
[2022-05-18] MEDS ORDERED: NS 1,000 ML IV ONE (12:05)
[2022-05-18] MEDS: cefTRIAXone SOD 1 GM in D5W MINI-BAG PLUS 50 ML IV SCH (12:19)
[2022-05-18] MEDS: DOCUSATE SODIUM 100MG CAPSULE PO SCH ×2 (12:19→20:12)
[2022-05-18] MEDS: DOXYCYCLINE HYCLATE 100MG TABLET PO SCH ×2 (12:19→20:12)
[2022-05-18] MEDS ORDERED: ROMIPLOSTIM 250MCG VIAL (NPLATE) (J2796 PER 10MCG) (FOR ONCOLOGY) SC ONE (13:00)
[2022-05-18 16:40] LABS: ABG O2 SATURATION 96.4 % (95.0-99.0); ABG PARTIAL PRESSURE O2 88.7 mmHg (75.0-100.0); ABG STANDARD HCO3 37.7 MEQ/L (22.0-26.0); ABG TOTAL CO2 45.6 MEQ/L (22.0-29.0); ABG pH (ARTERIAL) 7.321 UNITS (7.350-7.450)
[2022-05-18 16:50] LABS: ABG PARTIAL PRESSURE CO2 85.1 mmHg (35.0-45.0)
[2022-05-18] MEDS: predniSONE 10 MG TAB PO SCH (17:36)
[2022-05-18 19:54] LABS: ABG BASE EXCESS 9.6 (-2.0-2.0); ABG HCO3 35.6 MEQ/L (22.0-26.0); ABG O2 SATURATION 98.1 % (95.0-99.0); ABG PARTIAL PRESSURE CO2 56.8 mmHg (35.0-45.0); ABG PARTIAL PRESSURE O2 105.7 mmHg (75.0-100.0); ABG STANDARD HCO3 33.3 MEQ/L (22.0-26.0); ABG TOTAL CO2 37.3 MEQ/L (22.0-29.0); ABG pH (ARTERIAL) 7.415 UNITS (7.350-7.450)
[2022-05-18] MEDS ORDERED: FUROSEMIDE 40MG/4ML VIAL (J1940) IV ONE (20:00)
[2022-05-19] VITALS (21 sets, daily range): BP systolic 105–157; BP diastolic 52–76; O2SAT 96
[2022-05-19 05:36] LABS: MAGNESIUM LEVEL 1.9 MG/DL (1.8-2.4); POTASSIUM SERUM 3.6 MEQ/L (3.5-5.1)
[2022-05-19] MEDS: LEVOTHYROXINE 150MCG TABLET (0.15MG) PO SCH (05:59)
[2022-05-19] MEDS: HEPARIN SOD (PORCINE) 5000UNITS/ML 1ML VIAL/SYRINGE SC SCH ×3 (05:59→21:58)
[2022-05-19 06:12] LABS: ABG BASE EXCESS 11.9 (-2.0-2.0); ABG HCO3 38.2 MEQ/L (22.0-26.0); ABG O2 SATURATION 97.8 % (95.0-99.0); ABG PARTIAL PRESSURE O2 100.5 mmHg (75.0-100.0); ABG STANDARD HCO3 35.6 MEQ/L (22.0-26.0); ABG TOTAL CO2 40.1 MEQ/L (22.0-29.0); ABG pH (ARTERIAL) 7.419 UNITS (7.350-7.450)
[2022-05-19 06:15] LABS: ABG PARTIAL PRESSURE CO2 60.4 mmHg (35.0-45.0)
[2022-05-19] MEDS: IPRATROPIUM 0.5MG/ALBUTEROL 2.5MG INH SOL UD 3ML (DUONEB) NEB SCH ×4 (07:40→19:07)
[2022-05-19] MEDS ORDERED: FUROSEMIDE 20MG/2ML VIAL (J1940) IV ONE (07:50)
[2022-05-19 08:12] LABS: BASO % 0.3 % (0.0-1.0); EOS % 0.3 % (0.0-3.0); HEMATOCRIT 32.4 % (42.0-52.0); HEMOGLOBIN 9.3 g/dl (13.5-17.5); LYMPH # 0.5 10^3/uL (1.5-5.0); LYMPH % 11.9 % (24.0-44.0); MEAN CORPUSCULAR HGB CONC 28.7 g/dl (32.0-36.5); MEAN CORPUSCULAR VOLUME 83.5 fl (80.0-96.0); MONO # 0.4 10^3/uL (0.0-0.8); MONO % 10.9 % (2.0-8.0); NEUTROPHILS # 2.9 10^3/uL (1.5-8.5); NEUTROPHILS % 75.3 % (36.0-66.0); PLATELET COUNT, AUTOMATED 125 10^3/uL (150-450); RED BLOOD COUNT 3.88 10^6/uL (4.30-6.10); WHITE BLOOD COUNT 3.9 10^3/uL (4.0-10.0)
[2022-05-19] MEDS: CHLORHEXIDINE GLUCONATE 0.12 % 15ML UDC (PERIDEX ORAL RINSE) MT SCH ×2 (08:13→21:58)
[2022-05-19] MEDS: predniSONE 10 MG TAB PO SCH (08:13)
[2022-05-19] MEDS: MIRALAX *UNIT DOSE* 17GM PACKET PO SCH (08:13)
[2022-05-19] MEDS: SENNA 8.6 MG TAB (SENOKOT) PO SCH (08:13)
[2022-05-19] MEDS: DOXYCYCLINE HYCLATE 100MG TABLET PO SCH ×2 (08:13→21:58)
[2022-05-19] MEDS: DOCUSATE SODIUM 100MG CAPSULE PO SCH ×2 (08:13→21:58)
[2022-05-19 08:39] LABS: ALBUMIN 2.6 GM/DL (3.2-5.2); ALT/SGPT 13 U/L (12-78); BILIRUBIN,TOTAL 0.8 MG/DL (0.2-1.0); BLOOD UREA NITROGEN 22 MG/DL (7-18); CALCIUM LEVEL 8.8 MG/DL (8.5-10.1); CARBON DIOXIDE LEVEL 42 MEQ/L (21-32); CHLORIDE LEVEL 97 MEQ/L (98-107); CREATININE FOR GFR 0.85 MG/DL (0.70-1.30); GLOMERULAR FILTRATION RATE > 60.0 (>56); GLUCOSE, FASTING 101 MG/DL (70-100); PHOSPHORUS LEVEL 1.7 MG/DL (2.5-4.9); POTASSIUM SERUM 3.3 MEQ/L (3.5-5.1); SODIUM LEVEL 144 MEQ/L (136-145); TOTAL PROTEIN 5.3 GM/DL (6.4-8.2)
[2022-05-19] MEDS ORDERED: POTASSIUM CHLORIDE 10% LIQ 20 MEQ/15 ML UDC PO ONE (10:00)
[2022-05-19] MEDS ORDERED: SODIUM PHOSPHATE INJ 20 MMOL in D5W 250 ML IV ONE (12:00)
[2022-05-19] MEDS: cefTRIAXone SOD 1 GM in D5W MINI-BAG PLUS 50 ML IV SCH (13:02)
[2022-05-19 13:45] LABS: ABG BASE EXCESS 13.1 (-2.0-2.0); ABG HCO3 40.8 MEQ/L (22.0-26.0); ABG O2 SATURATION 95.3 % (95.0-99.0); ABG PARTIAL PRESSURE O2 83.5 mmHg (75.0-100.0); ABG STANDARD HCO3 36.8 MEQ/L (22.0-26.0); ABG pH (ARTERIAL) 7.374 UNITS (7.350-7.450)
[2022-05-19 13:49] LABS: ABG PARTIAL PRESSURE CO2 71.5 mmHg (35.0-45.0)
[2022-05-20] VITALS (12 sets, daily range): BP systolic 103–139; BP diastolic 56–70
[2022-05-20 04:54] LABS: BASO % 0.3 % (0.0-1.0); EOS % 1.2 % (0.0-3.0); HEMATOCRIT 35.9 % (42.0-52.0); HEMOGLOBIN 10.1 g/dl (13.5-17.5); LYMPH # 0.5 10^3/uL (1.5-5.0); MEAN CORPUSCULAR HEMOGLOBIN 23.6 pg (27.0-33.0); MEAN CORPUSCULAR HGB CONC 28.1 g/dl (32.0-36.5); MEAN CORPUSCULAR VOLUME 83.9 fl (80.0-96.0); MONO # 0.5 10^3/uL (0.0-0.8); MONO % 13.3 % (2.0-8.0); NEUTROPHILS # 2.3 10^3/uL (1.5-8.5); NEUTROPHILS % 68.6 % (36.0-66.0); PLATELET COUNT, AUTOMATED 110 10^3/uL (150-450); RED BLOOD COUNT 4.28 10^6/uL (4.30-6.10); WHITE BLOOD COUNT 3.4 10^3/uL (4.0-10.0)
[2022-05-20 05:27] LABS: ALBUMIN 2.8 GM/DL (3.2-5.2); ALT/SGPT 15 U/L (12-78); BILIRUBIN,TOTAL 0.8 MG/DL (0.2-1.0); BLOOD UREA NITROGEN 19 MG/DL (7-18); CARBON DIOXIDE LEVEL 42 MEQ/L (21-32); CHLORIDE LEVEL 93 MEQ/L (98-107); CREATININE FOR GFR 0.94 MG/DL (0.70-1.30); GLOMERULAR FILTRATION RATE > 60.0 (>56); GLUCOSE, FASTING 83 MG/DL (70-100); MAGNESIUM LEVEL 1.9 MG/DL (1.8-2.4); PHOSPHORUS LEVEL 2.3 MG/DL (2.5-4.9); POTASSIUM SERUM 3.1 MEQ/L (3.5-5.1); SODIUM LEVEL 142 MEQ/L (136-145); TOTAL PROTEIN 5.9 GM/DL (6.4-8.2)
[2022-05-20 05:40] LABS: ABG BASE EXCESS 17.1 (-2.0-2.0); ABG HCO3 44.1 MEQ/L (22.0-26.0); ABG O2 SATURATION 95.3 % (95.0-99.0); ABG PARTIAL PRESSURE O2 78.6 mmHg (75.0-100.0); ABG STANDARD HCO3 40.9 MEQ/L (22.0-26.0); ABG TOTAL CO2 46.2 MEQ/L (22.0-29.0); ABG pH (ARTERIAL) 7.425 UNITS (7.350-7.450)
[2022-05-20 05:44] LABS: ABG PARTIAL PRESSURE CO2 68.8 mmHg (35.0-45.0)
[2022-05-20] MEDS: LEVOTHYROXINE 150MCG TABLET (0.15MG) PO SCH (06:49)
[2022-05-20] MEDS: HEPARIN SOD (PORCINE) 5000UNITS/ML 1ML VIAL/SYRINGE SC SCH (06:50)
[2022-05-20] MEDS: IPRATROPIUM 0.5MG/ALBUTEROL 2.5MG INH SOL UD 3ML (DUONEB) NEB SCH ×4 (07:14→20:08)
[2022-05-20] MEDS: CHLORHEXIDINE GLUCONATE 0.12 % 15ML UDC (PERIDEX ORAL RINSE) MT SCH ×2 (08:03→20:49)
[2022-05-20] MEDS: DOCUSATE SODIUM 100MG CAPSULE PO SCH ×2 (08:03→20:49)
[2022-05-20] MEDS: DOXYCYCLINE HYCLATE 100MG TABLET PO SCH ×2 (08:03→20:49)
[2022-05-20] MEDS: MIRALAX *UNIT DOSE* 17GM PACKET PO SCH (08:04)
[2022-05-20] MEDS: predniSONE 10 MG TAB PO SCH (08:04)
[2022-05-20] MEDS: MAGNESIUM OXIDE 400MG TAB (MAG-OX) PO SCH ×2 (08:04→20:49)
[2022-05-20] MEDS: SENNA 8.6 MG TAB (SENOKOT) PO SCH (08:04)
[2022-05-20] MEDS ORDERED: POTASSIUM CHLORIDE 10MEQ SR TABLET PO ONE ×2 (09:45→12:00)
[2022-05-20] MEDS: cefTRIAXone SOD 1 GM in D5W MINI-BAG PLUS 50 ML IV SCH (11:26)
[2022-05-20] MEDS: PANTOPRAZOLE 20 MG TAB PO SCH (11:27)
[2022-05-20 12:10] LABS: IMMUNOGLOBULIN A < 7.8 MG/DL (70-400); IMMUNOGLOBULIN G 964 MG/DL (681-1648); IMMUNOGLOBULIN M 24.8 MG/DL (40-230)
[2022-05-20] MEDS ORDERED: FUROSEMIDE 20MG/2ML VIAL (J1940) IV ONE (14:00)
[2022-05-20] MEDS: METOPROLOL TART 25 MG TABLET PO SCH ×2 (15:01→20:49)
[2022-05-20 18:08] LABS: ABG BASE EXCESS 11.9 (-2.0-2.0); ABG HCO3 39.2 MEQ/L (22.0-26.0); ABG O2 SATURATION 93.9 % (95.0-99.0); ABG STANDARD HCO3 35.6 MEQ/L (22.0-26.0); ABG TOTAL CO2 41.3 MEQ/L (22.0-29.0); ABG pH (ARTERIAL) 7.383 UNITS (7.350-7.450)
[2022-05-20 18:09] LABS: ABG PARTIAL PRESSURE CO2 67.3 mmHg (35.0-45.0)
[2022-05-20 18:46] LABS: INR 1.08; PROTHROMBIN TIME 14.4 SECONDS (12.7-14.5)
[2022-05-20 18:53] LABS: BLOOD UREA NITROGEN 20 MG/DL (7-18); CALCIUM LEVEL 9.3 MG/DL (8.5-10.1); CARBON DIOXIDE LEVEL 38 MEQ/L (21-32); CHLORIDE LEVEL 95 MEQ/L (98-107); GLOMERULAR FILTRATION RATE > 60.0 (>56); GLUCOSE, FASTING 101 MG/DL (70-100); POTASSIUM SERUM 4.3 MEQ/L (3.5-5.1); SODIUM LEVEL 141 MEQ/L (136-145)
[2022-05-20] MEDS ORDERED: NS 500 ML IV ONE (19:10)
[2022-05-20] MEDS ORDERED: APIXABAN 5 MG TAB (ELIQUIS) PO SCH (21:00)
[2022-05-21] VITALS (15 sets, daily range): BP systolic 102–133; BP diastolic 50–60; O2SAT 93–97
[2022-05-21 05:25] LABS: HEMATOCRIT 33.7 % (42.0-52.0); HEMOGLOBIN 9.4 g/dl (13.5-17.5); MEAN CORPUSCULAR HEMOGLOBIN 24.2 pg (27.0-33.0); MEAN CORPUSCULAR HGB CONC 27.9 g/dl (32.0-36.5); MEAN CORPUSCULAR VOLUME 86.6 fl (80.0-96.0); PLATELET COUNT, AUTOMATED 103 10^3/uL (150-450); RED BLOOD COUNT 3.89 10^6/uL (4.30-6.10); WHITE BLOOD COUNT 3.9 10^3/uL (4.0-10.0)
[2022-05-21 06:05] LABS: ABG BASE EXCESS 13.5 (-2.0-2.0); ABG HCO3 42.5 MEQ/L (22.0-26.0); ABG O2 SATURATION 96.8 % (95.0-99.0); ABG PARTIAL PRESSURE O2 97.7 mmHg (75.0-100.0); ABG STANDARD HCO3 37.2 MEQ/L (22.0-26.0); ABG TOTAL CO2 45.1 MEQ/L (22.0-29.0); ABG pH (ARTERIAL) 7.315 UNITS (7.350-7.450)
[2022-05-21 06:08] LABS: ABG PARTIAL PRESSURE CO2 85.4 mmHg (35.0-45.0)
[2022-05-21] MEDS: LEVOTHYROXINE 150MCG TABLET (0.15MG) PO SCH (06:08)
[2022-05-21 06:12] LABS: ERYTHROCYTE SEDIMENTATION RATE 6 mm/hr (0-20)
[2022-05-21] MEDS: IPRATROPIUM 0.5MG/ALBUTEROL 2.5MG INH SOL UD 3ML (DUONEB) NEB SCH ×4 (07:26→19:21)
[2022-05-21] MEDS: DOXYCYCLINE HYCLATE 100MG TABLET PO SCH ×2 (09:15→20:00)
[2022-05-21] MEDS: MIRALAX *UNIT DOSE* 17GM PACKET PO SCH (09:15)
[2022-05-21] MEDS: MAGNESIUM OXIDE 400MG TAB (MAG-OX) PO SCH (09:16)
[2022-05-21] MEDS: SENNA 8.6 MG TAB (SENOKOT) PO SCH (09:16)
[2022-05-21] MEDS: DOCUSATE SODIUM 100MG CAPSULE PO SCH ×2 (09:17→20:00)
[2022-05-21] MEDS: METOPROLOL TART 25 MG TABLET PO SCH ×2 (09:17→20:01)
[2022-05-21] MEDS: PANTOPRAZOLE 20 MG TAB PO SCH (09:17)
[2022-05-21] MEDS: predniSONE 10 MG TAB PO SCH (09:17)
[2022-05-21 10:41] LABS: ABG BASE EXCESS 11.2 (-2.0-2.0); ABG HCO3 41.7 MEQ/L (22.0-26.0); ABG PARTIAL PRESSURE O2 117.7 mmHg (75.0-100.0); ABG TOTAL CO2 44.7 MEQ/L (22.0-29.0)
[2022-05-21 10:44] LABS: ABG PARTIAL PRESSURE CO2 98.4 mmHg (35.0-45.0); ABG pH (ARTERIAL) 7.245 UNITS (7.350-7.450)
[2022-05-21] MEDS ORDERED: FUROSEMIDE 20MG/2ML VIAL (J1940) IV ONE ×2 (10:50→17:30)
[2022-05-21] MEDS: cefTRIAXone SOD 1 GM in D5W MINI-BAG PLUS 50 ML IV SCH (11:07)
[2022-05-21 12:19] LABS: ABG BASE EXCESS 11.1 (-2.0-2.0); ABG HCO3 41.2 MEQ/L (22.0-26.0); ABG O2 SATURATION 95.9 % (95.0-99.0); ABG PARTIAL PRESSURE O2 91.6 mmHg (75.0-100.0); ABG STANDARD HCO3 34.8 MEQ/L (22.0-26.0); ABG TOTAL CO2 44.1 MEQ/L (22.0-29.0); ABG pH (ARTERIAL) 7.259 UNITS (7.350-7.450)
[2022-05-21 12:24] LABS: ABG PARTIAL PRESSURE CO2 94.1 mmHg (35.0-45.0)
[2022-05-21 13:35] LABS: ALBUMIN 2.7 GM/DL (3.2-5.2); ALT/SGPT 13 U/L (12-78); BILIRUBIN,TOTAL 0.8 MG/DL (0.2-1.0); BLOOD UREA NITROGEN 20 MG/DL (7-18); CALCIUM LEVEL 9.1 MG/DL (8.5-10.1); CARBON DIOXIDE LEVEL 42 MEQ/L (21-32); CHLORIDE LEVEL 98 MEQ/L (98-107); CREATININE FOR GFR 0.91 MG/DL (0.70-1.30); GLOMERULAR FILTRATION RATE > 60.0 (>56); GLUCOSE, FASTING 97 MG/DL (70-100); POTASSIUM SERUM 4.3 MEQ/L (3.5-5.1); SODIUM LEVEL 144 MEQ/L (136-145); TOTAL PROTEIN 5.3 GM/DL (6.4-8.2)
[2022-05-21 14:19] LABS: ABG HCO3 42.4 MEQ/L (22.0-26.0); ABG O2 SATURATION 97.4 % (95.0-99.0); ABG PARTIAL PRESSURE O2 104.7 mmHg (75.0-100.0); ABG STANDARD HCO3 36.7 MEQ/L (22.0-26.0); ABG TOTAL CO2 45.1 MEQ/L (22.0-29.0); ABG pH (ARTERIAL) 7.296 UNITS (7.350-7.450)
[2022-05-21 14:23] LABS: ABG PARTIAL PRESSURE CO2 88.9 mmHg (35.0-45.0)
[2022-05-21 17:16] LABS: ABG BASE EXCESS 13.6 (-2.0-2.0); ABG O2 SATURATION 96.5 % (95.0-99.0); ABG PARTIAL PRESSURE O2 92.4 mmHg (75.0-100.0); ABG STANDARD HCO3 37.3 MEQ/L (22.0-26.0); ABG TOTAL CO2 45.7 MEQ/L (22.0-29.0)
[2022-05-21 17:18] LABS: ABG PARTIAL PRESSURE CO2 89.3 mmHg (35.0-45.0)
[2022-05-22] VITALS (19 sets, daily range): BP systolic 96–144; BP diastolic 52–69
[2022-05-22] MEDS: LEVOTHYROXINE 150MCG TABLET (0.15MG) PO SCH (05:03)
[2022-05-22 06:23] LABS: ABG BASE EXCESS 13.5 (-2.0-2.0); ABG HCO3 42.2 MEQ/L (22.0-26.0); ABG O2 SATURATION 98.7 % (95.0-99.0); ABG PARTIAL PRESSURE O2 134.9 mmHg (75.0-100.0); ABG STANDARD HCO3 37.2 MEQ/L (22.0-26.0); ABG TOTAL CO2 44.8 MEQ/L (22.0-29.0); ABG pH (ARTERIAL) 7.322 UNITS (7.350-7.450)
[2022-05-22 06:26] LABS: ABG PARTIAL PRESSURE CO2 83.5 mmHg (35.0-45.0)
[2022-05-22] MEDS: IPRATROPIUM 0.5MG/ALBUTEROL 2.5MG INH SOL UD 3ML (DUONEB) NEB SCH ×4 (07:30→19:32)
[2022-05-22 08:43] LABS: BASO % 0.4 % (0.0-1.0); EOS # 0.1 10^3/uL (0.0-0.5); EOS % 1.6 % (0.0-3.0); HEMATOCRIT 33.6 % (42.0-52.0); HEMOGLOBIN 9.3 g/dl (13.5-17.5); LYMPH # 0.6 10^3/uL (1.5-5.0); LYMPH % 12.6 % (24.0-44.0); MEAN CORPUSCULAR HEMOGLOBIN 23.9 pg (27.0-33.0); MEAN CORPUSCULAR HGB CONC 27.7 g/dl (32.0-36.5); MEAN CORPUSCULAR VOLUME 86.4 fl (80.0-96.0); MONO # 0.8 10^3/uL (0.0-0.8); NEUTROPHILS # 3.5 10^3/uL (1.5-8.5); NEUTROPHILS % 69.2 % (36.0-66.0); PLATELET COUNT, AUTOMATED 105 10^3/uL (150-450); RED BLOOD COUNT 3.89 10^6/uL (4.30-6.10); WHITE BLOOD COUNT 5.1 10^3/uL (4.0-10.0)
[2022-05-22] MEDS: MIRALAX *UNIT DOSE* 17GM PACKET PO SCH (08:56)
[2022-05-22] MEDS: METOPROLOL TART 25 MG TABLET PO SCH ×2 (08:56→19:52)
[2022-05-22] MEDS: PANTOPRAZOLE 20 MG TAB PO SCH (08:56)
[2022-05-22] MEDS: SENNA 8.6 MG TAB (SENOKOT) PO SCH (08:56)
[2022-05-22] MEDS: DOCUSATE SODIUM 100MG CAPSULE PO SCH ×2 (08:57→19:51)
[2022-05-22] MEDS: predniSONE 10 MG TAB PO SCH (08:57)
[2022-05-22 09:10] LABS: ALBUMIN 2.5 GM/DL (3.2-5.2); ALT/SGPT 13 U/L (12-78); BILIRUBIN,TOTAL 0.8 MG/DL (0.2-1.0); BLOOD UREA NITROGEN 24 MG/DL (7-18); CALCIUM LEVEL 8.9 MG/DL (8.5-10.1); CARBON DIOXIDE LEVEL 42 MEQ/L (21-32); CHLORIDE LEVEL 96 MEQ/L (98-107); CREATININE FOR GFR 0.82 MG/DL (0.70-1.30); GLOMERULAR FILTRATION RATE > 60.0 (>56); GLUCOSE, FASTING 80 MG/DL (70-100); MAGNESIUM LEVEL 2.3 MG/DL (1.8-2.4); POTASSIUM SERUM 4.2 MEQ/L (3.5-5.1); SODIUM LEVEL 142 MEQ/L (136-145); TOTAL PROTEIN 5.2 GM/DL (6.4-8.2)
[2022-05-22] MEDS ORDERED: FUROSEMIDE 20MG/2ML VIAL (J1940) IV ONE ×2 (10:45→15:50)
[2022-05-22] MEDS: methylPREDNISolone 125MG 2ML VIAL IV SCH ×2 (16:14→22:00)
[2022-05-22 16:43] LABS: ABG BASE EXCESS 11.7 (-2.0-2.0); ABG HCO3 40.2 MEQ/L (22.0-26.0); ABG O2 SATURATION 91.8 % (95.0-99.0); ABG PARTIAL PRESSURE O2 62.2 mmHg (75.0-100.0); ABG STANDARD HCO3 35.3 MEQ/L (22.0-26.0); ABG TOTAL CO2 42.7 MEQ/L (22.0-29.0); ABG pH (ARTERIAL) 7.318 UNITS (7.350-7.450)
[2022-05-22 16:45] LABS: ABG PARTIAL PRESSURE CO2 80.2 mmHg (35.0-45.0)
[2022-05-23] VITALS (15 sets, daily range): BP systolic 85–152; BP diastolic 50–93; O2SAT 92–97
[2022-05-23] MEDS: methylPREDNISolone 125MG 2ML VIAL IV SCH ×4 (05:04→23:21)
[2022-05-23] MEDS: LEVOTHYROXINE 150MCG TABLET (0.15MG) PO SCH (05:04)
[2022-05-23 05:39] LABS: HEMOGLOBIN 8.5 g/dl (13.5-17.5); LYMPH # 0.3 10^3/uL (1.5-5.0); LYMPH % 9.2 % (24.0-44.0); MEAN CORPUSCULAR HEMOGLOBIN 22.7 pg (27.0-33.0); MEAN CORPUSCULAR HGB CONC 27.4 g/dl (32.0-36.5); MEAN CORPUSCULAR VOLUME 82.9 fl (80.0-96.0); MONO # 0.1 10^3/uL (0.0-0.8); MONO % 2.4 % (2.0-8.0); NEUTROPHILS # 2.6 10^3/uL (1.5-8.5); RED BLOOD COUNT 3.74 10^6/uL (4.30-6.10); WHITE BLOOD COUNT 2.9 10^3/uL (4.0-10.0)
[2022-05-23 05:44] LABS: ABG BASE EXCESS 15.7 (-2.0-2.0); ABG HCO3 43.4 MEQ/L (22.0-26.0); ABG O2 SATURATION 93.2 % (95.0-99.0); ABG PARTIAL PRESSURE O2 66.6 mmHg (75.0-100.0); ABG STANDARD HCO3 39.4 MEQ/L (22.0-26.0); ABG TOTAL CO2 45.7 MEQ/L (22.0-29.0)
[2022-05-23 05:53] LABS: PLATELET COUNT, AUTOMATED 86 10^3/uL (150-450)
[2022-05-23 06:11] LABS: ALBUMIN 2.5 GM/DL (3.2-5.2); ALT/SGPT 12 U/L (12-78); BILIRUBIN,TOTAL 0.7 MG/DL (0.2-1.0); BLOOD UREA NITROGEN 27 MG/DL (7-18); CALCIUM LEVEL 9.1 MG/DL (8.5-10.1); CARBON DIOXIDE LEVEL 43 MEQ/L (21-32); CHLORIDE LEVEL 95 MEQ/L (98-107); CREATININE FOR GFR 0.85 MG/DL (0.70-1.30); GLOMERULAR FILTRATION RATE > 60.0 (>56); GLUCOSE, FASTING 160 MG/DL (70-100); MAGNESIUM LEVEL 2.2 MG/DL (1.8-2.4); PHOSPHORUS LEVEL 2.9 MG/DL (2.5-4.9); POTASSIUM SERUM 4.4 MEQ/L (3.5-5.1); SODIUM LEVEL 142 MEQ/L (136-145); TOTAL PROTEIN 4.9 GM/DL (6.4-8.2)
[2022-05-23 07:08] LABS: IgG SERUM (part of Subclasses) 1003 mg/dL (603-1613); IgG Subclass 1 519 mg/dL (248-810); IgG Subclass 2 289 mg/dL (130-555); IgG Subclass 3 28 mg/dL (15-102); IgG Subclass 4 11 mg/dL (2-96)
[2022-05-23] MEDS: IPRATROPIUM 0.5MG/ALBUTEROL 2.5MG INH SOL UD 3ML (DUONEB) NEB SCH ×4 (07:31→19:57)
[2022-05-23] MEDS: SENNA 8.6 MG TAB (SENOKOT) PO SCH (08:19)
[2022-05-23] MEDS: METOPROLOL TART 25 MG TABLET PO SCH ×2 (08:19→20:39)
[2022-05-23] MEDS: DOCUSATE SODIUM 100MG CAPSULE PO SCH ×2 (08:19→20:39)
[2022-05-23] MEDS: PANTOPRAZOLE 20 MG TAB PO SCH (08:19)
[2022-05-23] MEDS: MIRALAX *UNIT DOSE* 17GM PACKET PO SCH (08:19)
[2022-05-23] MEDS ORDERED: FUROSEMIDE 20MG/2ML VIAL (J1940) IV ONE (09:00)
[2022-05-23 16:12] LABS: ABG BASE EXCESS 9.8 (-2.0-2.0); ABG O2 SATURATION 96.4 % (95.0-99.0); ABG PARTIAL PRESSURE CO2 94.6 mmHg (35.0-45.0); ABG STANDARD HCO3 33.6 MEQ/L (22.0-26.0); ABG TOTAL CO2 42.9 MEQ/L (22.0-29.0); ABG pH (ARTERIAL) 7.244 UNITS (7.350-7.450)
[2022-05-23] MEDS: ENOXAPARIN 150MG/ML SYRINGE (J1650 PER 10MG) SC SCH (20:39)
[2022-05-24] VITALS (17 sets, daily range): BP systolic 112–137; BP diastolic 51–64; O2SAT 96
[2022-05-24 05:36] LABS: ABG BASE EXCESS 9.1 (-2.0-2.0); ABG HCO3 35.6 MEQ/L (22.0-26.0); ABG PARTIAL PRESSURE O2 91.2 mmHg (75.0-100.0); ABG STANDARD HCO3 32.8 MEQ/L (22.0-26.0); ABG TOTAL CO2 37.5 MEQ/L (22.0-29.0); ABG pH (ARTERIAL) 7.383 UNITS (7.350-7.450)
[2022-05-24 05:37] LABS: ABG PARTIAL PRESSURE CO2 61.1 mmHg (35.0-45.0)
[2022-05-24] MEDS: methylPREDNISolone 125MG 2ML VIAL IV SCH ×4 (05:39→23:08)
[2022-05-24] MEDS: LEVOTHYROXINE 150MCG TABLET (0.15MG) PO SCH (05:39)
[2022-05-24 05:46] LABS: HEMATOCRIT 30.1 % (42.0-52.0); HEMOGLOBIN 8.6 g/dl (13.5-17.5); LYMPH # 0.2 10^3/uL (1.5-5.0); LYMPH % 5.3 % (24.0-44.0); MEAN CORPUSCULAR HGB CONC 28.6 g/dl (32.0-36.5); MEAN CORPUSCULAR VOLUME 83.8 fl (80.0-96.0); MONO # 0.2 10^3/uL (0.0-0.8); MONO % 5.1 % (2.0-8.0); NEUTROPHILS % 88.9 % (36.0-66.0); RED BLOOD COUNT 3.59 10^6/uL (4.30-6.10); WHITE BLOOD COUNT 4.5 10^3/uL (4.0-10.0)
[2022-05-24 05:50] LABS: PLATELET COUNT, AUTOMATED 94 10^3/uL (150-450)
[2022-05-24 06:09] LABS: ALBUMIN 2.5 GM/DL (3.2-5.2); ALT/SGPT 12 U/L (12-78); BILIRUBIN,TOTAL 0.7 MG/DL (0.2-1.0); BLOOD UREA NITROGEN 29 MG/DL (7-18); CALCIUM LEVEL 9.3 MG/DL (8.5-10.1); CARBON DIOXIDE LEVEL 42 MEQ/L (21-32); CHLORIDE LEVEL 94 MEQ/L (98-107); CREATININE FOR GFR 0.94 MG/DL (0.70-1.30); GLOMERULAR FILTRATION RATE > 60.0 (>56); GLUCOSE, FASTING 118 MG/DL (70-100); PHOSPHORUS LEVEL 2.9 MG/DL (2.5-4.9); POTASSIUM SERUM 4.5 MEQ/L (3.5-5.1); SODIUM LEVEL 138 MEQ/L (136-145)
[2022-05-24] MEDS: IPRATROPIUM 0.5MG/ALBUTEROL 2.5MG INH SOL UD 3ML (DUONEB) NEB SCH ×4 (08:01→19:09)
[2022-05-24] MEDS: DOCUSATE SODIUM 100MG CAPSULE PO SCH ×2 (08:48→20:21)
[2022-05-24] MEDS: MIRALAX *UNIT DOSE* 17GM PACKET PO SCH (08:48)
[2022-05-24] MEDS: PANTOPRAZOLE 20 MG TAB PO SCH (08:49)
[2022-05-24] MEDS: SENNA 8.6 MG TAB (SENOKOT) PO SCH (08:49)
[2022-05-24] MEDS: METOPROLOL TART 25 MG TABLET PO SCH ×2 (08:49→20:21)
[2022-05-24] MEDS: ENOXAPARIN 150MG/ML SYRINGE (J1650 PER 10MG) SC SCH (08:50)
[2022-05-24] MEDS ORDERED: ROMIPLOSTIM 250MCG VIAL (NPLATE) (J2796 PER 10MCG) (FOR ONCOLOGY) SC ONE (15:00)
[2022-05-25] VITALS (19 sets, daily range): BP systolic 90–144; BP diastolic 50–72
[2022-05-25] MEDS: LEVOTHYROXINE 150MCG TABLET (0.15MG) PO SCH (05:59)
[2022-05-25] MEDS: methylPREDNISolone 125MG 2ML VIAL IV SCH (05:59)
[2022-05-25 06:23] LABS: ABG BASE EXCESS 10.7 (-2.0-2.0); ABG HCO3 36.9 MEQ/L (22.0-26.0); ABG O2 SATURATION 95.4 % (95.0-99.0); ABG PARTIAL PRESSURE O2 79.7 mmHg (75.0-100.0); ABG STANDARD HCO3 34.4 MEQ/L (22.0-26.0); ABG TOTAL CO2 38.7 MEQ/L (22.0-29.0); ABG pH (ARTERIAL) 7.414 UNITS (7.350-7.450)
[2022-05-25] MEDS: IPRATROPIUM 0.5MG/ALBUTEROL 2.5MG INH SOL UD 3ML (DUONEB) NEB SCH ×4 (07:45→20:14)
[2022-05-25 07:52] LABS: BASO % 0.2 % (0.0-1.0); HEMATOCRIT 30.6 % (42.0-52.0); HEMOGLOBIN 8.8 g/dl (13.5-17.5); LYMPH # 0.2 10^3/uL (1.5-5.0); LYMPH % 5.5 % (24.0-44.0); MEAN CORPUSCULAR HEMOGLOBIN 23.7 pg (27.0-33.0); MEAN CORPUSCULAR HGB CONC 28.8 g/dl (32.0-36.5); MEAN CORPUSCULAR VOLUME 82.5 fl (80.0-96.0); MONO # 0.3 10^3/uL (0.0-0.8); MONO % 5.7 % (2.0-8.0); NEUTROPHILS # 3.9 10^3/uL (1.5-8.5); NEUTROPHILS % 87.7 % (36.0-66.0); RED BLOOD COUNT 3.71 10^6/uL (4.30-6.10); WHITE BLOOD COUNT 4.4 10^3/uL (4.0-10.0)
[2022-05-25 08:04] LABS: PLATELET COUNT, AUTOMATED 92 10^3/uL (150-450)
[2022-05-25 08:23] LABS: ALBUMIN 2.6 GM/DL (3.2-5.2); ALT/SGPT 13 U/L (12-78); BILIRUBIN,TOTAL 0.8 MG/DL (0.2-1.0); BLOOD UREA NITROGEN 30 MG/DL (7-18); CALCIUM LEVEL 9.5 MG/DL (8.5-10.1); CARBON DIOXIDE LEVEL 44 MEQ/L (21-32); CHLORIDE LEVEL 96 MEQ/L (98-107); CREATININE FOR GFR 0.74 MG/DL (0.70-1.30); GLOMERULAR FILTRATION RATE > 60.0 (>56); GLUCOSE, FASTING 102 MG/DL (70-100); POTASSIUM SERUM 4.9 MEQ/L (3.5-5.1); SODIUM LEVEL 142 MEQ/L (136-145)
[2022-05-25] MEDS: METOPROLOL TART 25 MG TABLET PO SCH (09:00)
[2022-05-25] MEDS: PANTOPRAZOLE 20 MG TAB PO SCH (09:00)
[2022-05-25] MEDS: DOCUSATE SODIUM 100MG CAPSULE PO SCH (09:00)
[2022-05-25] MEDS: MIRALAX *UNIT DOSE* 17GM PACKET PO SCH (09:00)
[2022-05-25] MEDS: SENNA 8.6 MG TAB (SENOKOT) PO SCH (09:00)
[2022-05-25] MEDS: THROMBIN SOLN 5,000 UNITS VIAL As Ordered ONE (09:28)
[2022-05-25] MEDS ORDERED: EPINEPHrine 1MG/10ML SYRINGE 1.5IN As Ordered ONE (09:29)
[2022-05-25] MEDS ORDERED: CETACAINE SPRAY 5GM As Ordered ONE (09:29)
[2022-05-25] MEDS ORDERED: ONDANSETRON 4MG 2ML VIAL As Ordered ONE (10:19)
[2022-05-25] MEDS ORDERED: dexameTHASONE 4 MG/ML 1ML VIAL (J1100 PER 1MG) As Ordered ONE (10:19)
[2022-05-25] MEDS ORDERED: PHENYLephrine 500MCG 5ML (100MCG/ML) SYRINGE As Ordered ONE (10:19)
[2022-05-25] MEDS ORDERED: ROCURONIUM BROMIDE 50 MG/5 ML VIAL As Ordered ONE (10:19)
[2022-05-25] MEDS ORDERED: propofoL 200 MG/20 ML VIAL As Ordered ONE (10:19)
[2022-05-25] MEDS ORDERED: SUCCINYLCHOLINE 100 MG/5 ML SYRINGE (J0330) As Ordered ONE (10:19)
[2022-05-25] MEDS ORDERED: fentaNYL 100 MCG/2 ML INJECTION As Ordered ONE (10:19)
[2022-05-25] MEDS ORDERED: MIDAZOLAM INJ 2MG/2ML VIAL (J2250 PER 1MG) As Ordered ONE (10:19)
[2022-05-25] MEDS ORDERED: LIDOCAINE 2% 100MG/5ML SDV (FOR ANES.) As Ordered ONE (10:19)
[2022-05-25] MEDS ORDERED: SUGAMMADEX SODIUM 500 MG/5 ML VIAL (BRIDION) As Ordered ONE (10:24)
[2022-05-25] MEDS ORDERED: flumazeniL 0.5 MG/5 ML VIAL As Ordered ONE (10:55)
[2022-05-25] MEDS ORDERED: ALBUTEROL 6.7GM INHALER **FOR ANES. CART/OMNICELL ONLY As Ordered ONE (11:03)
[2022-05-25] MEDS ORDERED: NALOXONE INJ 0.4MG/1ML VIAL (J2310 PER 1MG) As Ordered ONE (11:08)
[2022-05-25] MEDS ORDERED: ONDANSETRON 4MG 2ML VIAL IV PRN (11:15)
[2022-05-25] MEDS ORDERED: ALBUTEROL SULFATE 2.5 MG/0.5 ML INH NEB SOLN INH ONE (11:15)
[2022-05-25] MEDS ORDERED: fentaNYL 100 MCG/2 ML INJECTION IV PRN (11:15)
[2022-05-25] MEDS ORDERED: LR 1,000 ML IV SCH (11:15)
[2022-05-25] MEDS ORDERED: MORPHINE 2 MG/ML 1ML VIAL IV PRN (11:25)
[2022-05-25] MEDS ORDERED: PROPOFOL 1,000 MG/100 ML VIAL As Ordered ONE (11:29)
[2022-05-25] MEDS: propofoL 1,000 MG in IV 1 EA IV SCH ×5 (11:35→23:17)
[2022-05-25] MEDS: MORPHINE 2 MG/ML 1ML VIAL IV PRN ×2 (11:39→13:08)
[2022-05-25] MEDS ORDERED: IPRATROPIUM 0.5MG/ALBUTEROL 2.5MG INH SOL UD 3ML (DUONEB) NEB SCH (12:00)
[2022-05-25] MEDS ORDERED: MIDAZOLAM HCL 100 MG in D5W 80 ML IV SCH (12:00)
[2022-05-25] MEDS ORDERED: REFRIGERATOR IV KEYS XX PRN (12:00)
[2022-05-25 12:36] LABS: ABG BASE EXCESS 11.9 (-2.0-2.0); ABG HCO3 40.8 MEQ/L (22.0-26.0); ABG O2 SATURATION 92.7 % (95.0-99.0); ABG PARTIAL PRESSURE O2 72.9 mmHg (75.0-100.0); ABG STANDARD HCO3 35.6 MEQ/L (22.0-26.0); ABG TOTAL CO2 43.4 MEQ/L (22.0-29.0); ABG pH (ARTERIAL) 7.308 UNITS (7.350-7.450)
[2022-05-25 12:39] LABS: ABG PARTIAL PRESSURE CO2 83.3 mmHg (35.0-45.0)
[2022-05-25] MEDS: PANTOPRAZOLE 40MG VIAL IV SCH (14:33)
[2022-05-25] MEDS: DOCUSATE SOD LIQ 100MG/10ML UDC GT SCH (20:42)
[2022-05-25] MEDS: CHLORHEXIDINE GLUCONATE 0.12 % 15ML UDC (PERIDEX ORAL RINSE) MT SCH (20:42)
[2022-05-26] VITALS (47 sets, daily range): BP systolic 98–140; BP diastolic 49–78
[2022-05-26] MEDS: propofoL 1,000 MG in IV 1 EA IV SCH ×5 (02:32→20:46)
[2022-05-26 05:45] LABS: ABG BASE EXCESS 13.4 (-2.0-2.0); ABG O2 SATURATION 93.9 % (95.0-99.0); ABG PARTIAL PRESSURE CO2 56.4 mmHg (35.0-45.0); ABG PARTIAL PRESSURE O2 68.3 mmHg (75.0-100.0); ABG STANDARD HCO3 37.1 MEQ/L (22.0-26.0); ABG TOTAL CO2 40.8 MEQ/L (22.0-29.0); ABG pH (ARTERIAL) 7.458 UNITS (7.350-7.450)
[2022-05-26] MEDS: LEVOTHYROXINE 150MCG TABLET (0.15MG) PO SCH (06:13)
[2022-05-26 06:35] LABS: HEMATOCRIT 28.6 % (42.0-52.0); HEMOGLOBIN 8.4 g/dl (13.5-17.5); LYMPH # 0.4 10^3/uL (1.5-5.0); LYMPH % 12.4 % (24.0-44.0); MEAN CORPUSCULAR HEMOGLOBIN 23.9 pg (27.0-33.0); MEAN CORPUSCULAR HGB CONC 29.4 g/dl (32.0-36.5); MEAN CORPUSCULAR VOLUME 81.5 fl (80.0-96.0); MONO # 0.5 10^3/uL (0.0-0.8); MONO % 14.6 % (2.0-8.0); NEUTROPHILS # 2.6 10^3/uL (1.5-8.5); NEUTROPHILS % 72.2 % (36.0-66.0); PLATELET COUNT, AUTOMATED 100 10^3/uL (150-450); RED BLOOD COUNT 3.51 10^6/uL (4.30-6.10); WHITE BLOOD COUNT 3.6 10^3/uL (4.0-10.0)
[2022-05-26 07:13] LABS: BLOOD UREA NITROGEN 36 MG/DL (7-18); CALCIUM LEVEL 9.3 MG/DL (8.5-10.1); CARBON DIOXIDE LEVEL 41 MEQ/L (21-32); CHLORIDE LEVEL 96 MEQ/L (98-107); CREATININE FOR GFR 1.04 MG/DL (0.70-1.30); GLOMERULAR FILTRATION RATE > 60.0 (>56); GLUCOSE, FASTING 87 MG/DL (70-100); POTASSIUM SERUM 4.8 MEQ/L (3.5-5.1); SODIUM LEVEL 141 MEQ/L (136-145)
[2022-05-26] MEDS: IPRATROPIUM 0.5MG/ALBUTEROL 2.5MG INH SOL UD 3ML (DUONEB) NEB SCH ×4 (07:33→20:19)
[2022-05-26] MEDS: MIRALAX *UNIT DOSE* 17GM PACKET PO SCH (08:41)
[2022-05-26] MEDS: DOCUSATE SOD LIQ 100MG/10ML UDC GT SCH ×2 (08:41→20:43)
[2022-05-26] MEDS: PANTOPRAZOLE 40MG VIAL IV SCH (08:41)
[2022-05-26] MEDS: CHLORHEXIDINE GLUCONATE 0.12 % 15ML UDC (PERIDEX ORAL RINSE) MT SCH ×2 (08:41→20:43)
[2022-05-26] MEDS: SENNA 8.6 MG TAB (SENOKOT) PO SCH (08:41)
[2022-05-26] MEDS: ENOXAPARIN 40MG/0.4ML SYRINGE (J1650 PER 10MG) SC SCH (08:41)
[2022-05-26] MEDS ORDERED: METOPROLOL 5 MG/5 ML VIAL IV STA (13:07)
[2022-05-26 13:19] LABS: ABG BASE EXCESS 12.1 (-2.0-2.0); ABG HCO3 42.1 MEQ/L (22.0-26.0); ABG O2 SATURATION 94.8 % (95.0-99.0); ABG PARTIAL PRESSURE CO2 93.9 mmHg (35.0-45.0); ABG PARTIAL PRESSURE O2 90.6 mmHg (75.0-100.0); ABG STANDARD HCO3 35.8 MEQ/L (22.0-26.0); ABG TOTAL CO2 44.9 MEQ/L (22.0-29.0); ABG pH (ARTERIAL) 7.269 UNITS (7.350-7.450)
[2022-05-26] MEDS: METOPROLOL TART 25 MG TABLET PO SCH ×2 (14:17→20:00)
[2022-05-26 16:32] LABS: ABG BASE EXCESS 8.6 (-2.0-2.0); ABG HCO3 39.3 MEQ/L (22.0-26.0); ABG O2 SATURATION 93.5 % (95.0-99.0); ABG PARTIAL PRESSURE O2 84.1 mmHg (75.0-100.0); ABG STANDARD HCO3 32.3 MEQ/L (22.0-26.0); ABG TOTAL CO2 42.3 MEQ/L (22.0-29.0)
[2022-05-26 16:35] LABS: ABG PARTIAL PRESSURE CO2 99.1 mmHg (35.0-45.0); ABG pH (ARTERIAL) 7.216 UNITS (7.350-7.450)
[2022-05-26] MEDS ORDERED: PROPOFOL 1,000 MG/100 ML VIAL As Ordered ONE (17:06)
[2022-05-26] MEDS ORDERED: ROCURONIUM BROMIDE 50 MG/5 ML VIAL IV ONE (17:15)
[2022-05-26] MEDS ORDERED: ETOMIDATE INJ 20MG/10ML VIAL IV STA (17:15)
[2022-05-26 18:34] LABS: ABG BASE EXCESS 14.6 (-2.0-2.0); ABG HCO3 41.5 MEQ/L (22.0-26.0); ABG O2 SATURATION 93.9 % (95.0-99.0); ABG PARTIAL PRESSURE CO2 66.7 mmHg (35.0-45.0); ABG PARTIAL PRESSURE O2 69.7 mmHg (75.0-100.0); ABG STANDARD HCO3 38.3 MEQ/L (22.0-26.0); ABG TOTAL CO2 43.6 MEQ/L (22.0-29.0); ABG pH (ARTERIAL) 7.412 UNITS (7.350-7.450)
[2022-05-26] MEDS ORDERED: LIDOCAINE 2% INJ 100 MG/5 ML SYRINGE ONE (18:54)
[2022-05-26] MEDS ORDERED: ROCURONIUM BROMIDE 50 MG/5 ML VIAL ONE (18:54)
[2022-05-26] MEDS ORDERED: ETOMIDATE INJ 20MG/10ML VIAL ONE (18:54)
[2022-05-26] MEDS ORDERED: NS 250 ML IV ONE ×2 (22:05→23:25)
[2022-05-26] MEDS: MIDAZOLAM INJ 2MG/2ML VIAL (J2250 PER 1MG) IV PRN (23:56)
[2022-05-27] VITALS (26 sets, daily range): BP systolic 88–121; BP diastolic 47–57
[2022-05-27] MEDS: propofoL 1,000 MG in IV 1 EA IV SCH ×3 (00:29→10:01)
[2022-05-27] MEDS: MIDAZOLAM INJ 2MG/2ML VIAL (J2250 PER 1MG) IV PRN (03:04)
[2022-05-27] MEDS: LEVOTHYROXINE 150MCG TABLET (0.15MG) PO SCH (05:43)
[2022-05-27 05:46] LABS: ABG BASE EXCESS 16.2 (-2.0-2.0); ABG HCO3 41.8 MEQ/L (22.0-26.0); ABG O2 SATURATION 95.9 % (95.0-99.0); ABG PARTIAL PRESSURE CO2 58.1 mmHg (35.0-45.0); ABG PARTIAL PRESSURE O2 80.7 mmHg (75.0-100.0); ABG STANDARD HCO3 39.9 MEQ/L (22.0-26.0); ABG TOTAL CO2 43.6 MEQ/L (22.0-29.0); ABG pH (ARTERIAL) 7.475 UNITS (7.350-7.450)
[2022-05-27 06:25] LABS: EOS % 0.4 % (0.0-3.0); HEMATOCRIT 29.3 % (42.0-52.0); HEMOGLOBIN 8.6 g/dl (13.5-17.5); LYMPH # 0.5 10^3/uL (1.5-5.0); LYMPH % 10.6 % (24.0-44.0); MEAN CORPUSCULAR HEMOGLOBIN 23.8 pg (27.0-33.0); MEAN CORPUSCULAR HGB CONC 29.4 g/dl (32.0-36.5); MEAN CORPUSCULAR VOLUME 81.2 fl (80.0-96.0); MONO # 0.6 10^3/uL (0.0-0.8); MONO % 12.5 % (2.0-8.0); NEUTROPHILS # 3.5 10^3/uL (1.5-8.5); NEUTROPHILS % 75.2 % (36.0-66.0); RED BLOOD COUNT 3.61 10^6/uL (4.30-6.10); WHITE BLOOD COUNT 4.6 10^3/uL (4.0-10.0)
[2022-05-27 06:54] LABS: BLOOD UREA NITROGEN 36 MG/DL (7-18); CALCIUM LEVEL 8.9 MG/DL (8.5-10.1); CARBON DIOXIDE LEVEL 40 MEQ/L (21-32); CHLORIDE LEVEL 97 MEQ/L (98-107); CREATININE FOR GFR 0.89 MG/DL (0.70-1.30); GLOMERULAR FILTRATION RATE > 60.0 (>56); GLUCOSE, FASTING 89 MG/DL (70-100); POTASSIUM SERUM 4.8 MEQ/L (3.5-5.1); SODIUM LEVEL 139 MEQ/L (136-145)
[2022-05-27] MEDS: IPRATROPIUM 0.5MG/ALBUTEROL 2.5MG INH SOL UD 3ML (DUONEB) NEB SCH ×3 (07:34→15:22)
[2022-05-27] MEDS: ENOXAPARIN 40MG/0.4ML SYRINGE (J1650 PER 10MG) SC SCH (08:35)
[2022-05-27] MEDS: DOCUSATE SOD LIQ 100MG/10ML UDC GT SCH (08:35)
[2022-05-27] MEDS: PANTOPRAZOLE 40MG VIAL IV SCH (08:35)
[2022-05-27] MEDS: SENNA 8.6 MG TAB (SENOKOT) PO SCH (08:36)
[2022-05-27] MEDS: MIRALAX *UNIT DOSE* 17GM PACKET PO SCH (08:36)
[2022-05-27] MEDS: CHLORHEXIDINE GLUCONATE 0.12 % 15ML UDC (PERIDEX ORAL RINSE) MT SCH (08:36)
[2022-05-27] MEDS: METOPROLOL TART 25 MG TABLET PO SCH (08:41)
[2022-05-27] MEDS ORDERED: NS 500 ML IV ONE (12:20)
[2022-05-27] MEDS ORDERED: HYOSCYAMINE SULFATE 0.125 MG SUBL TABLET PO PRN (16:45)
[2022-05-27] MEDS ORDERED: MORPHINE 2 MG/ML 1ML VIAL IV PRN (16:45)
[2022-05-27] MEDS ORDERED: SCOPOLAMINE 1MG TRANSDERMAL PATCH TOP PRN (16:45)
[2022-05-27] MEDS ORDERED: MORPHINE 10MG/0.5ML ORAL CONCENTRATE SOLUTION U/D SL PRN (16:45)
[2022-05-27] MEDS ORDERED: ATROPINE SULFATE 1% OP SOLN 2 ML BTL SL PRN (16:45)
== END 2022-05-27 18:02 | disposition expired | DRG 691 ==
LOC: M ED 09:27 → M ED INP 12:44 → ENRESERV 13:33 → M ICU 15:06
PROVIDERS: ADMIT Internal Medicine Critical Care Medicine; ATTEND Internal Medicine Pulmonary Disease
PROC: 0BBD8ZX Excision of Right Middle Lung Lobe, Via Natural or Artificial Opening Endoscopic, Diagnostic (ICD-10-PCS; 2022-05-25)
PROC: 0B9D8ZX Drainage of Right Middle Lung Lobe, Via Natural or Artificial Opening Endoscopic, Diagnostic (ICD-10-PCS; 2022-05-25)
PROC: 5A1945Z Respiratory Ventilation, 24-96 Consecutive Hours (ICD-10-PCS; principal; 2022-05-26)
DX: C85.12 Unspecified B-cell lymphoma, intrathoracic lymph nodes (principal); J96.21 Acute and chronic respiratory failure with hypoxia; G93.41 Metabolic encephalopathy; J18.9 Pneumonia, unspecified organism; J44.0 Chronic obstructive pulmonary disease with (acute) lower respiratory infection; E46 Unspecified protein-calorie malnutrition; D69.3 Immune thrombocytopenic purpura; D80.1 Nonfamilial hypogammaglobulinemia; E87.2 Acidosis; J96.22 Acute and chronic respiratory failure with hypercapnia; J84.10 Pulmonary fibrosis, unspecified; I95.9 Hypotension, unspecified; D83.9 Common variable immunodeficiency, unspecified; Z99.81 Dependence on supplemental oxygen; E66.2 Morbid (severe) obesity with alveolar hypoventilation; E83.42 Hypomagnesemia; I48.91 Unspecified atrial fibrillation; Z68.41 Body mass index [BMI] 40.0-44.9, adult; D64.9 Anemia, unspecified; E03.9 Hypothyroidism, unspecified; G25.81 Restless legs syndrome; I89.0 Lymphedema, not elsewhere classified; K59.00 Constipation, unspecified; Z66 Do not resuscitate; Z51.5 Encounter for palliative care; Z88.2 Allergy status to sulfonamides; Z88.0 Allergy status to penicillin; Z91.010 Allergy to peanuts; Z91.018 Allergy to other foods; Z92.21 Personal history of antineoplastic chemotherapy